=== PATIENT | female | born 1960 | race Caucasian/White ===

== ENCOUNTER 2025-03-07 08:09 | Outpatient (CLI) | payer MEDICARE, SELFPAY ==
--- NOTE | ~2025-03-07 | MM_ITS ---
EXAMINATION: MM screening cesar BI w delia HISTORY: Screening TECHNIQUE: Craniocaudal and mediolateral oblique 3-D tomosynthesis images were obtained and synthetic 2-D images were generated. CAD analysis was submitted and interpreted. COMPARISON: No prior mammogram is available for comparison at this institution. BREAST PARENCHYMAL COMPOSITION: Not dense: There are scattered areas of fibroglandular density. FINDINGS: There is no evidence of suspicious mass, calcification, or architectural distortion to sugg est malignancy in either breast. There has been no suspicious interval change. IMPRESSION: 1. No mammographic evidence of malignancy. 2. Recommend routine screening mammography in one year. BI-RADS Category 1: Negative Reviewed, dictated and finalized at location B.
--- OUTSIDE RECORDS SUMMARY | 2025-03-07 08:16 | XMS_ITS | Continuity of Care Document ---
Author Organization [facility] Address [id number] [place] [address] [place] [address] Phone Care Team Providers Care Refinery Superintendent Name Role Phone Francisco Brody DO Unavailable Unavailable Advance Directives Directive Yes / No Effective Date File Name No Information Encounters Encounter Description Practice Location Reason(s) For Visit Diagnoses Date Provider Providers Copied on Encounter [facility], [address], [place], [place], [id number], [place] tel:[phone] [facility] [place] No Information Ronn Alexandra. [address] [employer] [facility], [place], [address], [place]. tel: [phone] Family History Family Member Type Diagnosis Age At Onset No Information Payers Payer name Insurance type Covered republican ID Authoriza tieugene(s) [employer] SOI CI [id number] Social History Type Description Quantity Date Captured Comments Sex Female Smoking Status No Information Chief Complaint And Reason For Visit No Information Reason For Referral Reason For Referral No Information History Of Present Illness Encounter Date Complaint History Of Prese nt Illness No Information Functional Status Date Functional Assessmen t No Information Instructions Date Instruction Additional Infor mation No Information Assessments Type Assessment Date No Information Patient Care Teams Name Effective Dates (start - stop) Status Members No Information
--- OUTSIDE RECORDS SUMMARY | 2025-03-07 08:16 | XMS_ITS | Clinical Summary ---
Author Organization [facility] Address [address] [place] [address] Care Team Providers Care Interactive Media Director Name Role Phone Chato Hernandez MD Primary Care Provider [phone] Source Comments [facility]Info,non-owned Affiliates and Associated Physician Practices is amultiple site organization consisting of ambulatory clinics and hospital sitesin [place], [place], [place] and [place]. This disclosure is being madepursuant to the Care Everywhere program and may not contain all information available regarding this patient. Last updated 18.[facility] Allergies No known active allergies Medications * Be aware that medications may not be up to date on this document. Alwaysverify current medications with the patient. gabapentin (Neurontin) 800 MG tablet TAKE ONE CAPSULE BY MOUTH THREE TIMES DAILY NEEDED FOR PAIN MANAGEMENT 3 Active metFORMIN (Glucophage) 1000 MG tablet Take 1 (one) tablet by mouth 2 times daily Active lisinopril (Prinivil; Zestril) 20 MG tablet Take 1 (one) tablet by mouth two times daily at 4am and 4pm Active glimepiride (Amaryl) 4 MG tablet Take 1 (one) tablet by mouth 2 times daily FOR DIABETES 3 Active Cholecalcifero l (Vitamin D3) 1000 units CAPS Active famotidine (Pepcid) 20 MG tablet Active Semaglutide(0. 25 or 0.5MG/DOS) 2 MG/3ML Solution Pen-injector (Ozempic (0.25 or 0.5 MG/DOSE)) Inject 0.5 mg subcutaneously every 7 days 0.25 mg weekly for one month, then increase to 0.5 3 mL 5 3 Active hydroCHLOROthi azide (Hydrodiuril) 25 MG tablet Take 1 (one) tablet by mouth once daily 90 tablet 4 3 Active dulaglutide (Trulicity) 0.75 MG/0.5ML injection Inject 0.5 mL subcutaneously every 7 days 2 mL 5 3 Active Active Problems Problem Noted Date Diagnosed Date Diabetic peripheral neuropat hy associated with type 2 diabetes mellitus 09/03/2017 09/20/2023 Obesity 09/03/2017 09/20/2023 Thyroid nodule 09/03/2017 09/20/2023 Type 2 diabetes mellitus 09/03/2017 023 Social History Tobacco Use Types Packs/Day Years Used Date Smoking Tobacco: Never Assessed Comments Unknown Sex and Gender Information Value Date Recorded Sex Assigned at Not on file Legal Sex Female 11:01 AM CDT Gender Identity Not on file Sexual Orientation Not on file Last Filed Vital Signs Vital Sign Reading Time Taken Comments Blood Pressure 176/100 08/04/2023 8:02 AM CDT Pulse 93 08/04/2023 8:02 AM CDT Temperature - - Respiratory Rate 18 08/04/2023 8:02 AM CDT Oxygen Saturation 98% 08/04/2023 8:02 AM CDT Inhaled Oxygen Concentration - - Weight 118.4 kg (261 lb) 08/04/2023 8:02 AM CDT Height 162.6 cm (5' 4 ) 08/04/2023 8:02 AM CDT Body Mass Index 44.8 08/04/2023 8:02 AM CDT Plan of Treatment Health Maintenance Due Date Last Done Comments BONE DENSITY TESTING 1960 COLOGUARD (AGES 45-75) - COLON CA SCREENING 1958 COLON MONITORING 1958 COLONOSCOPY - COLON CA SCREENING 1958 CT COLONOGRAPHY - COLON CA SCREENING 1960 Colorectal Cancer Screening 1958 FIT - COLON CA SCREENING 1958 FLEX SIG - COLON CA SCREENING 1958 MAMMOGRAM 1960 MEDICARE AWV 12 MONTHS 1958 HEPATITIS C SCREENING 09/21/1976 DTAP/TDAP/TD VACCINES (1 - Tdap) 1977 PNEUMOCOCCAL VACCINE 50+ (1 of 2 - PCV) 1977 DIABETES-STATIN 1998 ZOSTER VACCINE (1 of 2) 2008 Respiratory Syncytial Virus (RSV) Vaccine Pt: or over 60 yrs (1 - Risk 60-74 years 1-dose series) 2018 DIABETES-FOOT EXAM WITH MONOFILAMENT 09/20/2023 DIABETES-HGB A1C 11/04/2023 08/04/2023 COVID-19 VACCINE ( season) 2024 02/13/2022, 07/31/2021, 12/08/2020, Additional history exists DIABETES-SERUM CREATININE 08/04/2024 08/04/2023 DEPRESSION SCREENING 10/20/2024 DIABETES - URINE PROTEIN SCREENING 10/20/2024 08/04/2023 DIABETES RETINOPATHY SCREENING 05/07/2025 05/07/2023 INFLUENZA VACCINE (Season Ended) 2025 07/28/2023, 08/20/2022, 07/15/2019, Additional history exists HEPATITIS B VACCINE Aged Out No longe r eligible based on patient's age to complete this topic HIB VACCINE Aged Out No longer eligi ble based on patient's age to complete this topic HPV VACCINE Aged Out No longer eligi ble based on patient's age to complete this topic MENINGOCOCCAL (Group B) VACCINE SHARED DECISION-MAKING Aged Out No longer eligible based on patient's age to complete this topic MENINGOCOCCAL GROUPS A/C/Y/W VACCINE Aged Out No longer eligible based on patient's age to complete this topic Procedures Procedure Name Priority Date/Time Associated Diagnosis Comments MICROALB/CREAT RATIO URINE RANDOM PANEL Routine 08/04/2023 9:49 AM CDT Type 2 diabetes mellitus with diabetic polyneuropathy, without long-term current use of insulin Thyroid nodule COMPREHENSIVE METABOLIC PANEL Routine 08/04/2023 9:42 AM CDT Type 2 diabetes mellitus with diabetic polyneuropathy, without long-term current use of insulin Thyroid nodule HEMOGLOBIN A1C Routine 08/04/2023 9:42 AM CDT Type 2 diabetes mellitus with diabetic polyneuropathy, without long-term current use of insulin Thyroid nodule EYE EXAM Routine 05/07/2023 from Last 3 Months or Most Recently Relevant to Health Maintenance Results * MICROALB/CREAT RATIO URINE RANDOM PANEL (08/04/2023 9:49 AM CDT) Albumin Random Urine 9.2 Not Established ug/mL 08/04/2023 10:58 AM CDT [facility] Creatinine Urine 60.60 Not Established mg/dL 08/04/2023 10:58 AM CDT [facility] Urine Albumin/Creati nine Ratio 15 <30 mg/g 08/04/2023 10:58 AM CDT [facility] Urine URINE SPECIMEN OBTAINED BY CLEAN CATCH PROCEDURE / Unknown Collection / Unknown 08/04/2023 9:49 AM CDT 08/04/2023 10:17 AM CDT Robbi Haskins MD LAB - URINE CHEMISTRY ORDERAB LES Final Result Performing Organization Address City/State/[facility] Co de Phone Number [facility] [address] [place] [address], [facility] [phone] * (ABNORMAL) HEMOGLOBIN A1C (08/04/2023 9:42 AM CDT) Hemoglobin A1c 9.7(H) <=5.6 % 08/06/2023 11:28 AM CDT [facility] Estimated Average Glucose 232 mg/dL 08/06/2023 11:28 AM T [facility] Comment: HbA1c Interpretation: Normal : < 5.7% Pre-diabetes: 5.7-6.4% Diabetes: Equal to or greater than 6.5% Test results diagnostic of diabetes should be repeated for confirmation. Treatment target values recommended by ADA and other clinical organizations should be used to evaluate metabolic control in patients. Reference: [place] [employer], Standards of Care in Diabetes -2020 In patients 70 years and older consider HbA1c target range of 7.0-7.5% (Reference: Vance Brown et al. JAMDA. 2012) The Sebia assay for the measurement of HbA1c is a National Glycohemoglobin Standardization Program (NGSP) certified method. Blood BLOOD SPECIMEN / Unknown Lab Venipuncture / Unknown 08/04/2023 9:42 AM CDT 08/04/2023 10:19 AM CDT Robbi Haskins MD LAB - CHEMISTRY ORDERABLES Fi nal Result [facility] [address] [place] [address], [facility] [phone] * (ABNORMAL) COMPREHENSIVE METABOLIC PANEL (08/04/2023 9:42 AM CDT) BUN 13 7 - 26 mg/dL 08/04/2023 10:52 AM [facility] Creatinine 0.92 0.56 - 0.96 mg/dL 08/04/2023 10:52 AM [facility] Sodium 137 136 - 145 mmol/L 08/04/2023 10:52 AM [facility] Potassium 4.5 3.5 - 4.5 mmol/L 08/04/2023 10:52 AM [facility] Chloride 102 98 - 107 mmol/L 08/04/2023 10:52 AM [facility] CO2 25 22 - 29 mmol/L 08/04/2023 10:52 AM [facility] Glucose 216(H) 70 - 115 mg/dL 08/04/2023 10:52 AM [facility] Calcium 9.7 8.4 - 10.2 mg/dL 08/04/2023 10:52 AM [facility] Protein Total 7.4 6.0 - 8.3 g/dL 08/04/2023 10:52 AM [facility] Albumin 3.9 3.4 - 5.0 g/dL 08/04/2023 10:52 AM [facility] Bilirubin Total 0.4 0.2 - 1.2 mg/dL 08/04/2023 10:52 AM [facility] Alkaline Phosphatase 86 40 - 150 U/L 08/04/2023 10:52 AM [facility] ALT 30 5 - 55 U/L 08/04/2023 10:52 AM [facility] AST 24 5 - 34 U/L 08/04/2023 10:52 AM CDT [facility] Anion Gap 10 6 - 16 08/04/2023 10:52 AM [facility] BUN/Creatinine Ratio 14 7 - 23 08/04/2023 10:52 AM T [facility] Osmolality Calculated 291 275 - 295 mOsm/kg 08/04/2023 10:52 AM [facility] Albumin/Globulin Ratio 1.1 1.1 - 2.3 08/04/2023 10:52 AM [facility] eGFR by CKD-EPI 70(L) >=90 mL/min/1.7 3 m2 08/04/2023 10:52 AM [facility] Blood BLOOD SPECIMEN / Unknown Lab Venipuncture / Unknown 08/04/2023 9:42 AM CDT 08/04/2023 10:20 AM CDT Robbi Haskins MD LAB - CHEMISTRY ORDERABLES nal Result [facility] [address] [place] [address], [facility] [phone] * EYE EXAM (05/07/2023) Anatomical Region Laterality Modality Other Historical Provider SCANNING ONLY Final Res ult from Last 3 Months or Most Recently Relevant to Health Maintenance Insurance MEDICARE MEDICAID - [place] Care Teams Interactive Media Director Relationship Specialty [place] [address] [place] [id number] PCP - General Internal Medicine 08/04/23
--- OUTSIDE RECORDS SUMMARY | 2025-03-07 08:16 | XMS_ITS | Data Portability ---
Author Organization [facility] [place] Address [address] [place] [address] Care Team Providers Care Supervisor Final Name Role Phone DORINA EASTON Primary Care Provider [phone] Assessment No assessment recorded. Plan of Treatment Reminders Order Date Submit Date Provider Last Modified By Organization Details Last Modified Time Details Appointments ANY 30 2024 02:30P M Dorina Easton MD Not available Not available Not available Lab lipid panel, serum 2024 025 [facility], [address], [address], [place], [address], 02/28/2025 16:38:50 HbA1c (hemogl obin A1c), blood 2024 025 [facility] In-Office Order, Internal Use Only DO Not Attach Compendium DO Not Attach Compendium, Do Not Delete/merge, [id number] 02/28/2025 16:38:51 urinaly sis complet e, reflex culture 2024 025 [facility], [address], [address], [place], [address], 03/04/2025 17:19:55 hemoglo bin (Hb), fingers tick, blood 2024 025 [facility] In-Office Order, Internal Use Only DO Not Attach Compendium DO Not Attach Compendium, Do Not Delete/merge, [id number] 11/04/2024 13:05:32 HbA1c (hemogl obin A1c), blood 2023 024 [facility], [address], [address], [place], [address], 11/05/2024 09:44:42 CMP, serum or plasma 2023 024 [facility], [address], [address], [place], [address], 07/29/2024 10:13:57 albumin /creati nine, mass ratio, urine 2023 024 [facility], [address], [address], [place], [address], 07/29/2024 10:13:56 HbA1c (hemogl obin A1c), blood 2023 024 [facility] In-Office Order, Internal Use Only DO Not Attach Compendium DO Not Attach Compendium, Do Not Delete/merge, [id number] 02/19/2024 12:19:36 Referral gastroe nterolo gist referra l - family history of colon cancer, 2024 025 [facility], [address], [address], [address], 02/16/2025 17:53:55 Procedures None recorde d. Surgeries None recorde d. Imaging XR, hand - pain mainly in first MCP and PIP, also pain in left anatomi isatu snuff box 2024 025 [facility] ([facility]), [address] [place], [address], 02/28/2025 16:40:53 DEXA 2024 025 [facility] (Imaging), [address], [place], [address], 02/10/2025 13:57:23 MAMMO, screeni ng, digital , bilater al 2024 025 [facility] (Mammography) , [address] [place], [address], 02/24/2025 12:50:46 XR, hand - Pain bilater al MCP joints 2023 [facility] ([facility] Sched[facility]), [address] [place], [address], 03/02/2025 11:39:00 XR, foot - diabeti c, foot swellin g and tendern ess over metatar levy heads on exam 2023 024 [facility] ([facility] Scheduling), [address] [place], [address], 03/02/2025 11:39:00 MAMMO, screeni ng, digital , bilater al 2023 024 [facility] ([facility] Scheduling), [address] [place], [address], 03/01/2025 13:43:16 Medication Orders propran olol 10 mg tablet 2024 025 [facility], [address] [place] [address], [id number], 03/01/2025 14:43:57 Trulici ty 0.75 mg/0.5 mL subcuta neous pen injecto r 2024 025 [facility], [address] [place] [address], [id number], 03/01/2025 14:43:57 Trulici ty 1.5 mg/0.5 mL subcuta neous pen injecto r 2024 025 [facility], [address] [place] [address], [id number], 02/28/2025 17:15:28 metform in 1,000 mg tablet 2024 025 [facility], [address] [place] [address], [id number], 01/12/2025 15:39:45 Ozempic 2 mg/dose (8 mg/3 mL) subcuta neous pen injecto r 2024 [facility], [address] [place] [address], [id number], 02/07/2025 15:24:04 gabapen tin 800 mg tablet 2024 025 [facility], [address] [place] [address], [id number], 01/12/2025 15:39:44 amitrip tyline 25 mg tablet 2024 025 [facility], [address] [place] [address], [id number], 02/28/2025 15:49:28 Flonase Allergy Relief 50 mcg/act uation nasal spray,s uspensi on 2024 [facility], [address] [place] [address], [id number], 12/14/2024 16:09:20 Augment in 500 mg-125 mg tablet 2024 025 [facility], [address] [place] [address], [id number], 02/28/2025 15:43:15 hydroch lorothi azide 25 mg tablet 2024 025 [facility], [address] [place] [address], [id number], 01/12/2025 15:39:45 lisinop ril 20 mg tablet 2024 025 [facility], [address] [place] [address], [id number], 01/12/2025 15:39:45 Ozempic 2 mg/dose (8 mg/3 mL) subcuta neous pen injecto r 2023 024 [facility], [address] [place] [address], [id number], 09/30/2024 15:43:51 Ozempic 1 mg/dose (2 mg/1.5 mL) subcuta neous pen injecto r 2023 024 [facility], [address] [place] [address], [id number], 05/24/2024 09:34:40 Singula ir 10 mg tablet 2023 024 [facility], [address] [place] [address], [id number], 04/27/2024 14:32:08 Patient TargetsNo targets recorded. 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 Screening for malignant neoplasm of colon family history of colon cancer, Referring Physician: Dorina Easton, Family Medicine, Encounter Date: 11/04/2024 Results Created Date Observation Date Name Description Value Unit Range Abnormal Flag Note LastModifiedBy Organization Detail LastModifiedTime 02/11/2002/11/2024 influ vibha virus A + B + SARS- CoV-2 (COVI D19) Ag panel , rapid IA, upper respi rator y speci men Flu A negati ve Not Available In-Office Order Internal Use Only DO Not Attach Compendium DO Not Attach Compendium, Do Not Delete/merge, [id number] 02/11/2024 14:09:30 02/11/2002/11/2024 influ vibha virus A + B + SARS- CoV-2 (COVI D19) Ag panel , rapid IA, upper respi rator y speci men Flu B positi ve Not Available In-Office Order Internal Use Only DO Not Attach Compendium DO Not Attach Compendium, Do Not Delete/merge, [id number] 02/11/2024 14:09:30 02/11/20 24 02/11/2024 influ vibha virus A + B + SARS- CoV-2 (COVI D19) Ag panel , rapid IA, upper respi rator y speci men Rapid SARS CoV 2 Ag, QL IA, respiratory specimen negati ve Not Available In-Office Order Internal Use Only DO Not Attach Compendium DO Not Attach Compendium, Do Not Delete/merge, [id number] 02/11/2024 14:09:30 02/19/20 24 02/19/2024 HbA1c (hemo globi n A1c), blood HbA1c 6.4 Not Available In-Office Order Internal Use Only DO Not Attach Compendium DO Not Attach Compendium, Do Not Delete/merge, [id number] 02/18/2024 14:58:40 03/16/20 24 03/17/2024 MICRO SCOPI C EXAMI NATIO N WBC >30 /hpf 0-5 abnormal Not Available [facility] ([facility]) [address], [place], [address], 03/19/2024 17:10:18 03/16/20 24 03/17/2024 MICRO SCOPI C EXAMI NATIO N RBC None seen /hpf 0-2 Not Available [facility] ([facility]) [address], [place], [address], 03/19/2024 17:10:18 03/16/20 24 03/17/2024 MICRO SCOPI C EXAMI NATIO N epithelial cells (non renal) 0-10 /hpf 0-10 Not Available [facility] ([facility]) [address], [place], [address], 03/19/2024 17:10:18 03/16/20 24 03/17/2024 MICRO SCOPI C EXAMI NATIO N casts None seen /lpf nonese en Not Available [facility] ([facility]) [address], [place], [address], 03/19/2024 17:10:18 03/16/20 24 03/17/2024 MICRO SCOPI C EXAMI NATIO N bacteria Many nonese en/few abnormal Not Available [facility] ([facility]) [address], [place], [address], 03/19/2024 17:10:18 03/16/20 24 03/17/2024 UA WITH CULTU RE REFLE X specific gravity 1.017 1.005- 1.030 Not Available [facility] ([facility]) [address], [place], [address], 03/19/2024 17:10:18 03/16/20 24 03/17/2024 UA WITH CULTU RE REFLE X pH 5.5 5.0-7. 5 Not Available [facility] ([facility]) [address], [place], [address], 03/19/2024 17:10:18 03/16/20 24 03/17/2024 UA WITH CULTU RE REFLE X urine-color YELLOW yellow Not Available [facility] ([facility]) [address], [place], [address], 03/19/2024 17:10:18 03/16/20 24 03/17/2024 UA WITH CULTU RE REFLE X appearance CLOUDY clear abnormal Not Available [facility] ([facility]) [address], [place], [address], 03/19/2024 17:10:18 03/16/20 24 03/17/2024 UA WITH CULTU RE REFLE X WBC esterase 3+ negati ve abnormal Not Available [facility] ([facility]) [address], [place], [address], 03/19/2024 17:10:18 03/16/20 24 03/17/2024 UA WITH CULTU RE REFLE X protein NEGATI VE negati ve/tra ce Not Available [facility] ([facility]) [address], [place], [address], 03/19/2024 17:10:18 03/16/20 24 03/17/2024 UA WITH CULTU RE REFLE X glucose NEGATI VE negati ve Not Available [facility] ([facility]) [address], [place], [address], 03/19/2024 17:10:18 03/16/20 24 03/17/2024 UA WITH CULTU RE REFLE X ketones NEGATI VE negati ve Not Available [facility] ([facility]) [address], [place], [address], 03/19/2024 17:10:18 03/16/20 24 03/17/2024 UA WITH CULTU RE REFLE X occult blood NEGATI VE negati ve Not Available [facility] ([facility]) [address], [place], [address], 03/19/2024 17:10:18 03/16/20 24 03/17/2024 UA WITH CULTU RE REFLE X bilirubin NEGATI VE negati ve Not Available [facility] ([facility]) [address], [place], [address], 03/19/2024 17:10:18 03/16/20 24 03/17/2024 UA WITH CULTU RE REFLE X urobilinogen ,semi-qn 0.2 mg/dL 0.2-1. 0 Not Available [facility] ([facility]) [address], [place], [address], 03/19/2024 17:10:18 03/16/20 24 03/17/2024 UA WITH CULTU RE REFLE X nitrite, urine POSITI VE negati ve abnormal Not Available [facility] ([facility]) [address], [place], [address], 03/19/2024 17:10:18 03/16/20 24 03/17/2024 UA WITH CULTU RE REFLE X microscopic examination SEE BELOW: Micro scopi c was indic ated and was perfo rmed. Not Available [facility] ([facility]) [address], [place], [address], 03/19/2024 17:10:18 03/16/20 24 03/17/2024 UA WITH CULTU RE REFLE X urinalysis reflex COMMEN T This speci men has refle xed to a Urine Cultu re. Not Available [facility] ([facility]) [address] [place], [address], 03/19/2024 17:10:18 03/16/20 24 03/19/2024 URINE CULTU RE, ROUTI NE urine culture, routine Final report abnormal Not Available [facility] ([facility]) [address], [place], [address], 03/19/2024 17:10:20 03/16/20 24 03/19/2024 URINE CULTU RE, ROUTI NE result 1 Escher ichia coli abnormal Great er than 100,0 00 colon y formi ng units per mL Cefaz alba <=4 ug/mL Cefaz alba with an CORY <=16 predi cts susce ptibi lity to the oral agent s cefac brian, cefdi lexis, cefpo doxim e, cefpr ozil, cefur oxime , cepha lexin , and lorac arbef when used for thera py of uncom plica esteban urina ry tract infec tions due to E. coli, Klebs iella pneum oniae , and Prote us mirab ilis. Not Available [facility] ([facility]) [address] [place], [address], 03/19/2024 17:10:20 03/16/20 24 03/19/2024 URINE CULTU RE, ROUTI NE antimicrobia l susceptibili ty Commen t S = Susce ptibl e; I = Inter media te; R = Resis tant P = Posit kezia; N = Negat kezia MICS are expre ssed in micro grams per mL Antib iotic RSLT# 1 RSLT# 2 RSLT# 3 RSLT# 4 Amoxi cilli n/Cla vulan ic Acid S Ampic illin R Cefep lissy S Ceftr iaxon e S Cefur oxime S Cipro floxa dena R Ertap enem S Genta micin S Imipe nem S Levof loxac in R Merop enem S Nitro furan toin S Piper acill in/Ta zobac casiano S Tetra cycli ne S Tobra mycin S Trime thopr im/Connelly lfa S Not Available [facility] ([facility]) [address], [place], [address], 03/19/2024 17:10:20 03/16/20 24 03/16/2024 urina lysis , dipst ick Leukocytes Small Not Available In-Offi ce Order Internal Use Only DO Not Attach Compendium DO Not Attach Compendium, Do Not Delete/merge, [id number] 03/08/2024 19:08:38 03/16/20 24 03/16/2024 urina lysis , dipst ick Nitrite positi ve Not Available In-Office Order Internal Use Only DO Not Attach Compendium DO Not Attach Compendium, Do Not Delete/merge, [id number] 03/08/2024 19:08:38 03/16/20 24 03/16/2024 urina lysis , dipst ick Urobilinogen .2 Not Available In-Of fice Order Internal Use Only DO Not Attach Compendium DO Not Attach Compendium, Do Not Delete/merge, [id number] 03/08/2024 19:08:38 03/16/20 24 03/16/2024 urina lysis , dipst ick Protein Negati ve Not Available In-Office Order Internal Use Only DO Not Attach Compendium DO Not Attach Compendium, Do Not Delete/merge, [id number] 03/08/2024 19:08:38 03/16/20 24 03/16/2024 urina lysis , dipst ick pH 5.5 Not Available In-Office Order Internal Use Only DO Not Attach Compendium DO Not Attach Compendium, Do Not Delete/merge, 03/08/2024 19:08:38 03/16/20 24 03/16/2024 urina lysis , dipst ick Blood Negati ve Not Available In-Office Order Internal Use Only DO Not Attach Compendium DO Not Attach Compendium, Do Not Delete/merge, 03/08/2024 19:08:38 03/16/20 24 03/16/2024 urina lysis , dipst ick Specific Acushnet 1.020 Not Available In-Off ice Order Internal Use Only DO Not Attach Compendium DO Not Attach Compendium, Do Not Delete/merge, 03/08/2024 19:08:38 03/16/20 24 03/16/2024 urina lysis , dipst ick Ketone Negati ve Not Available In-Office Order Internal Use Only DO Not Attach Compendium DO Not Attach Compendium, Do Not Delete/merge, 03/08/2024 19:08:38 03/16/20 24 03/16/2024 urina lysis , dipst ick Bilirubin Negati ve Not Available In-Office Order Internal Use Only DO Not Attach Compendium DO Not Attach Compendium, Do Not Delete/merge, 03/08/2024 19:08:38 03/16/20 24 03/16/2024 urina lysis , dipst ick Glucose Negati ve Not Available In-Office Order Internal Use Only DO Not Attach Compendium DO Not Attach Compendium, Do Not Delete/merge, 03/08/2024 19:08:38 03/16/20 24 03/16/2024 urina lysis , dipst ick Appearance Slight ly Cloudy Not Available In-Office Order Internal Use Only DO Not Attach Compendium DO Not Attach Compendium, Do Not Delete/merge, 03/08/2024 19:08:38 03/16/20 24 03/16/2024 urina lysis , dipst ick Color Yellow Not Available In-Office Order Internal Use Only DO Not Attach Compendium DO Not Attach Compendium, Do Not Delete/merge, 03/08/2024 19:08:38 03/16/20 24 03/16/2024 urina lysis , dipst ick Leukocytes Small Not Available In-Offi ce Order Internal Use Only DO Not Attach Compendium DO Not Attach Compendium, Do Not Delete/merge, 03/16/2024 12:50:13 03/16/20 24 03/16/2024 urina lysis , dipst ick Nitrite positi ve Not Available In-Office Order Internal Use Only DO Not Attach Compendium DO Not Attach Compendium, Do Not Delete/merge, 03/16/2024 12:50:13 03/16/20 24 03/16/2024 urina lysis , dipst ick Urobilinogen .2 Not Available In-Of fice Order Internal Use Only DO Not Attach Compendium DO Not Attach Compendium, Do Not Delete/merge, 03/16/2024 12:50:13 03/16/20 24 03/16/2024 urina lysis , dipst ick Protein Negati ve Not Available In-Office Order Internal Use Only DO Not Attach Compendium DO Not Attach Compendium, Do Not Delete/merge, 03/16/2024 12:50:13 03/16/20 24 03/16/2024 urina lysis , dipst ick pH 5.5 Not Available In-Office Order Internal Use Only DO Not Attach Compendium DO Not Attach Compendium, Do Not Delete/merge, 03/16/2024 12:50:13 03/16/20 24 03/16/2024 urina lysis , dipst ick Blood Negati ve Not Available In-Office Order Internal Use Only DO Not Attach Compendium DO Not Attach Compendium, Do Not Delete/merge, 03/16/2024 12:50:13 03/16/20 24 03/16/2024 urina lysis , dipst ick Specific Acushnet 1.020 Not Available In-Off ice Order Internal Use Only DO Not Attach Compendium DO Not Attach Compendium, Do Not Delete/merge, 03/16/2024 12:50:13 03/16/20 24 03/16/2024 urina lysis , dipst ick Ketone Negati ve Not Available In-Office Order Internal Use Only DO Not Attach Compendium DO Not Attach Compendium, Do Not Delete/merge, 03/16/2024 12:50:13 03/16/20 24 03/16/2024 urina lysis , dipst ick Bilirubin Negati ve Not Available In-Office Order Internal Use Only DO Not Attach Compendium DO Not Attach Compendium, Do Not Delete/merge, 03/16/2024 12:50:13 03/16/20 24 03/16/2024 urina lysis , dipst ick Glucose Negati ve Not Available In-Office Order Internal Use Only DO Not Attach Compendium DO Not Attach Compendium, Do Not Delete/merge, 03/16/2024 12:50:13 03/16/20 24 03/16/2024 urina lysis , dipst ick Appearance Slight ly Cloudy Not Available In-Office Order Internal Use Only DO Not Attach Compendium DO Not Attach Compendium, Do Not Delete/merge, 03/16/2024 12:50:13 03/16/20 24 03/16/2024 urina lysis , dipst ick Color Yellow Not Available In-Office Order Internal Use Only DO Not Attach Compendium DO Not Attach Compendium, Do Not Delete/merge, 03/16/2024 12:50:13 04/15/20 24 04/18/2024 URINE CULTU RETERRY NE urine culture, routine FINAL REPORT abnormal Not Available [facility] ([facility]) [address], [place], [address], 04/18/2024 13:07:36 04/15/20 24 04/18/2024 URINE CULTU RETERRY NE result 1 ESCHER ICHIA COLI abnormal Great er than 100,0 00 colon y formi ng units per mL Cefaz alba <=4 ug/mL Cefaz alba with an CORY <=16 predi cts susce ptibi lity to the oral agent s cefac brian, cefdi lexis, cefpo doxim e, cefpr ozil, cefur oxime , cepha lexin , and lorac arbef when used for thera py of uncom plica esteban urina ry tract infec tions due to E. coli, Klebs iella pneum oniae , and Prote us mirab ilis. Not Available [facility] ([facility]) [address] [facility], [place], [address], 04/18/2024 13:07:36 04/15/20 24 04/18/2024 URINE CULTU RE, ROUTI NE antimicrobia l susceptibili ty COMMEN T S = Susce ptibl e; I = Inter media te; R = Resis tant P = Posit kezia; N = Negat kezia MICS are expre ssed in micro grams per mL Antib iotic RSLT# 1 RSLT# 2 RSLT# 3 RSLT# 4 Amoxi cilli n/Cla vulan ic Acid S Ampic illin R Cefep lissy S Ceftr iaxon e S Cefur oxime S Cipro floxa dena R Ertap enem S Genta micin S Imipe nem S Levof loxac in R Merop enem S Nitro furan toin S Piper acill in/Ta zobac casiano S Tetra cycli ne S Tobra mycin S Trime thopr im/Connelly lfa R Not Available [facility] ([facility]) [address] [facility] [address], [place], [address], 04/18/2024 13:07:36 05/05/20 24 05/09/2024 URINE CULTU RE, ROUTI NE urine culture, routine FINAL REPORT abnormal Not Available [facility] ([facility]) [address] [facility], [place], [address], 05/09/2024 17:07:42 05/05/20 24 05/09/2024 URINE CULTU RE, ROUTI NE result 1 ENTERO COCCUS FAECAL IS abnormal For Enter ococc us speci es, amino glyco sides (exce pt for high- level resis tance scree fredy) , cepha lospo rins, clind amyci n, and trime thopr im-connelly lfame thoxa zole are not effec tive clini juan daniel . (CLSI , M100- S26, 2016) Note: this isola te is vanco mycin -susc eptib le. This infor matio n is provi ded for epide miolo gic purpo ses only: vanco mycin is not among the antib iotic s recom lindy d for thera py of urina ry tract infec tions cause d by Enter ococc us. 10,00 0-25, 000 colon y formi ng units per mL Not Available [facility] ([facility]) [address] [place], [address], 05/09/2024 17:07:42 05/05/20 24 05/09/2024 URINE CULTU RE, ROUTI NE antimicrobia l susceptibili ty COMMEN T S = Susce ptibl e; I = Inter media te; R = Resis tant P = Posit kezia; N = Negat kezia MICS are expre ssed in micro grams per mL Antib iotic RSLT# 1 RSLT# 2 RSLT# 3 RSLT# 4 Cipro floxa dena R Levof loxac in R Nitro furan toin S Penic illin R Tetra cycli ne R Vanco mycin S Not Available [facility] ([facility]) [address] [facility] [address], [place], [address], 05/09/2024 17:07:42 07/28/20 24 07/29/2024 ALBUM IN/CR EATIN INE RATIO ,URIN E creatinine, urine 28.2 mg/dL notest ab. Not Available [facility] ([facility]) [address] [place], [address], 07/29/2024 10:13:56 07/28/2007/29/2024 ALBUM IN/CR EATIN INE RATIO ,URIN E albumin, urine <3.0 ug/mL notest ab. Not Available [facility] ([facility]) [address] [place], [address], 07/29/2024 10:13:56 07/28/20 24 07/29/2024 ALBUM IN/CR EATIN INE RATIO ,URIN E alb/creat ratio <11 Kaylyn l: 0 - 29 Moder ately incre ased: 30 - 300 Sever royer incre ased: >300 Not Available [facility] ([facility]) [address] [place], [address], 07/29/2024 10:13:56 07/28/2007/29/2024 COMP. METAB OLIC PANEL (14) glucose 126 mg/dL 70-99 above high normal Not Available [facility] ([facility]) [address] [place], [address], 07/29/2024 10:13:57 07/28/2007/29/2024 COMP. METAB OLIC PANEL (14) BUN 20 mg/dL 8-27 Not Available [facility] ([facility]) [address] [place], [address], 07/29/2024 10:13:57 07/28/20 24 07/29/2024 COMP. METAB OLIC PANEL (14) creatinine 0.93 mg/dL 0.57-1 .00 Not Available [facility] ([facility]) [address] [place], [address], 07/29/2024 10:13:57 07/28/20 24 07/29/2024 COMP. METAB OLIC PANEL (14) eGFR 68 mL/mi n/1.7 3 >59 Not Available [facility] ([facility]) [address] [place], [address], 07/29/2024 10:13:57 07/28/2007/29/2024 COMP. METAB OLIC PANEL (14) BUN/creatini ne ratio 22 12-28 Not Available [facility] ([facility]) [address] [place], [address], 07/29/2024 10:13:57 07/28/20 07/29/2024 COMP. METAB OLIC PANEL (14) sodium 136 mmol/ L 134-14 4 Not Available [facility] ([facility]) [address] [place], [address], 07/29/2024 10:13:57 07/28/20 24 07/29/2024 COMP. METAB OLIC PANEL (14) potassium 4.2 mmol/ L 3.5-5. 2 Not Available [facility] ([facility]) [address] [facility] [address], [place], [address], 07/29/2024 10:13:57 07/28/2007/29/2024 COMP. METAB OLIC PANEL (14) chloride 95 mmol/ L 96-106 below low normal Not Available [facility] ([facility]) [address] [facility] [address], [place], [address], 07/29/2024 10:13:57 07/28/2007/29/2024 COMP. METAB OLIC PANEL (14) carbon dioxide, total 23 mmol/ L 20-29 Not Available [facility] ([facility]) [address] [place], [address], 07/29/2024 10:13:57 07/28/20 24 07/29/2024 COMP. METAB OLIC PANEL (14) calcium 9.4 mg/dL 8.7-10 .3 Not Available [facility] ([facility]) [address] [place], [address], 07/29/2024 10:13:57 07/28/20 24 07/29/2024 COMP. METAB OLIC PANEL (14) protein, total 6.7 g/dL 6.0-8. 5 Not Available [facility] ([facility]) [address] [place], [address], 07/29/2024 10:13:57 07/28/20 24 07/29/2024 COMP. METAB OLIC PANEL (14) albumin 4.4 g/dL 3.9-4. 9 Not Available [facility] ([facility]) [address] [place], [address], 07/29/2024 10:13:57 07/28/20 24 07/29/2024 COMP. METAB OLIC PANEL (14) globulin, total 2.3 g/dL 1.5-4. 5 Not Available [facility] ([facility]) [address] [place], [address], 07/29/2024 10:13:57 07/28/20 24 07/29/2024 COMP. METAB OLIC PANEL (14) bilirubin, total 0.2 mg/dL 0.0-1. 2 Not Available [facility] ([facility]) [address] [place], [address], 07/29/2024 10:13:57 07/28/20 24 07/29/2024 COMP. METAB OLIC PANEL (14) alkaline phosphatase 83 IU/L 44-121 Not Available [facility]) [address] [facility] [address], [place], [address], 07/29/2024 10:13:57 07/28/20 24 07/29/2024 COMP. METAB OLIC PANEL (14) AST (SGOT) 25 IU/L 0-40 Not Available [facility] ([facility]) [address] [place], [address], 07/29/2024 10:13:57 07/28/20 24 07/29/2024 COMP. METAB OLIC PANEL (14) ALT (SGPT) 20 IU/L 0-32 Not Available [facility] ([facility]) [address] [place], [address], 07/29/2024 10:13:57 08/25/20 24 08/28/2024 URINE CULTU RE, ROUTI NE urine culture, routine FINAL REPORT abnormal Not Available [facility] ([facility]) [address] [place], [address], 08/28/2024 07:36:08 08/25/20 24 08/28/2024 URINE CULTU RE, ROUTI NE result 1 KLEBSI KAJAL OXYTOC A abnormal 50,00 0-100 ,000 colon y formi ng units per mL Not Available [facility] ([facility]) [address] [facility], [place], [address], 08/28/2024 07:36:08 08/25/20 24 08/28/2024 URINE CULTU RE, ROUTI NE antimicrobia l susceptibili ty COMMEN T S = Susce ptibl e; I = Inter media te; R = Resis tant P = Posit kezia; N = Negat kezia MICS are expre ssed in micro grams per mL Antib iotic RSLT# 1 RSLT# 2 RSLT# 3 RSLT# 4 Amoxi cilli n/Cla vulan ic Acid S Ampic illin R Cefep lissy S Ceftr iaxon e S Cefur oxime S Cipro floxa dena S Genta micin S Imipe nem S Levof loxac in S Merop enem S Nitro furan toin S Tetra cycli ne S Tobra mycin S Trime thopr im/Connelly lfa S Not Available [facility] ([facility]) [address] [facility] [address], [place], [address], 08/28/2024 07:36:08 08/25/20 24 08/25/2024 urina lysis , dipst ick Leukocytes Large Not Available In-Offi ce Order Internal Use Only DO Not Attach Compendium DO Not Attach Compendium, Do Not Delete/merge, [id number] 08/25/2024 14:25:11 08/25/20 24 08/25/2024 urina lysis , dipst ick Nitrite positi ve Not Available In-Office Order Internal Use Only DO Not Attach Compendium DO Not Attach Compendium, Do Not Delete/merge, [id number] 08/25/2024 14:25:11 08/25/20 24 08/25/2024 urina lysis , dipst ick Urobilinogen 4 Not Available In-Of fice Order Internal Use Only DO Not Attach Compendium DO Not Attach Compendium, Do Not Delete/merge, [id number] 08/25/2024 14:25:11 08/25/20 24 08/25/2024 urina lysis , dipst ick Protein 100 Not Available In-Office Order Internal Use Only DO Not Attach Compendium DO Not Attach Compendium, Do Not Delete/merge, [id number] 08/25/2024 14:25:11 08/25/20 24 08/25/2024 urina lysis , dipst ick pH 5.0 Not Available In-Office Order Internal Use Only DO Not Attach Compendium DO Not Attach Compendium, Do Not Delete/merge [id number]|2025-03-07 08:16:00|2025-03-07 08:16:00|XMS_ITS|BKG DAEMON|External Medical Summaries|[id number]|" CONTINUITY OF CARE DOCUMENT Created on: March 07, 2025 Brianne Bear : 1960 Sex: Female Author Name awilda kaiser Address Unknown Organization [facility] Address [id number] [place] [address] [address] [place] [address] Phone [phone] Care Team Providers Care Supervisor Final Name Role Phone Morteza KENDALL, Carlitos Unavailable MANUELA AGUAYO MD Unavailable [phone] MANUELA AGUAYO MD Unavailable [phone] INSURANCE PROVIDERS Payer name Policy type / Coverage type Fieldon red green party ID [id number] (PPO C-SNP) Commercial insurance company [id number] "
--- OUTSIDE RECORDS SUMMARY | 2025-03-07 08:16 | XMS_ITS | Clinical Summary ---
Author Organization [facility] Address [address] [place] [id number] Care Team Providers Care Pulmonary Physician Name Role Phone Chato Hernandez MD Primary Care Provider [phone] Allergies No known active allergies Medications acyclovir 800 MG tablet 0 01/31/2019 Active amitriptyline 10 MG tablet START WTIH 10MG DAILY AT BEDTIME INCREASE BY 10MG EVERY 2 3 DAYS UNTIL REACHING A TOTAL DOSE OF 30MG DAILY. 3 04/22/2019 Active CALCIUM 600-D 600-400 MG-UNIT tablet TAKE 1 TABLET BY MOUTH TWICE DAILY DIRECTED FOR 30 DAYS 6 04/12/2019 Active gabapentin 800 MG tablet Take 800 mg by mouth 3 (three) times daily. 5 04/12/2019 Active glimepiride 4 MG tablet TAKE 1 TABLET BY MOUTH TWICE DAILY DIRECTED FOR 30 DAYS 2 03/09/2019 Active lisinopril-hydr ochlorothiazide 20-25 MG tablet Take 1 tablet by mouth daily. 5 05/07/2019 Active meloxicam 15 MG tablet TAKE 1 TABLET BY MOUTH ONCE DAILY AFTER A MEAL 6 04/12/2019 Active metFORMIN 1000 MG tablet Take 1,000 mg by mouth 2 (two) times daily. 6 04/12/2019 Active pioglitazone 30 MG tablet Take 30 mg by mouth daily. 3 05/11/2019 Active probiotic capsule Take 1 capsule by mouth 3 (three) times daily with meals. Active Active Problems No known active problems Family History Medical History Relation Comments Heart Disease Father Cancer Mother colon, breast, u terine Cancer Son colon Relation Status Comments Father Mother Son Social History Tobacco Use Types Packs/Day Years Used Date Smoking Tobacco: Former Cigarettes Q uit: 05/19/1992 Smokeless Tobacco: Never Quit: 05/19/2019 Alcohol Use Standard Drinks/Week Comments No 0 (1 standard drink = 0.6 oz pur e alcohol) AUDIT-C Answer Date Recorded Frequency of Alcohol Consumption Never 08/26/2018 Average Number of Drinks Not on file 018 Frequency of Binge Drinking Not on file 04/2018 Comments No Sex and Gender Information Value Date Recorded Sex Assigned at Not on file Legal Sex Female 8:03 PM CDT Gender Identity Not on file Sexual Orientation Not on file Last Filed Vital Signs Vital Sign Reading Time Taken Comments Blood Pressure 102/60 05/19/2019 8:03 AM CDT Pulse 82 05/19/2019 8:03 AM CDT Temperature 36.2 C (97.2 F) 05/19/2019 7:53 AM CDT Respiratory Rate 17 05/19/2019 8:03 AM CDT Oxygen Saturation 94% 05/19/2019 8:03 AM CDT Inhaled Oxygen Concentration - - Weight 108 kg (238 lb) 05/19/2019 6:30 AM CDT Height 163.8 cm (5' 4.5 ) 05/19/2019 6:30 AM CDT Body Mass Index 40.22 05/19/2019 6:30 AM CDT Plan of Treatment Health Maintenance Due Date Last Done Comments Colorectal Cancer Screening Colonoscopy (10 Years) 1960 Hepatitis C 1976 DTaP, Tdap and Td Vaccines ( 1 - Tdap) 1977 Mammogram Screening 1998 Pneumococcal Vaccine: 50+ Ye ars (1 of 1 - PCV) 2008 Zoster Vaccines (1 of 2) 2008 Dexa Scan (General) 2023 COVID-19 Vaccine ( - 2023-2 5 season) 2024 RSV Immunization or 60+ Years (1 - 1-dose 75+ series) 2033 Meningococcal B Vaccine Aged Out No l onger eligible based on patient's age to complete this topic Meningococcal Vaccine Aged Out No alejandra tim eligible based on patient's age to complete this topic RSV Immunizations Under 20 Months Aged Out No longer eligible based on patient's age to complete this topic Insurance [facility] Care Teams Pulmonary Physician Relationship Specialty Start Date End Date Chato Hernandez MD [address] [place] [address] PCP - General INTERNAL MEDICINE 05/19/19
--- OUTSIDE RECORDS SUMMARY | 2025-03-07 08:16 | XMS_ITS | Data Portability ---
Author Organization [facility] [place], Main Office Address [address] [place] [address] Care Team Providers Care Produce Runner Name Role Phone RUSTAM ANNA Primary Care Provider ANNA EASTON Referring Provider [phone] Assessment Encounter Date Assessment Date Assessment LastModified by Organization Details LastModified Time 11/04/2023 11/04/2023 By history and exam the patient is noted to have rotator cuff tendinitis with chronic impingement right shoulder. 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 We talked about treatment options today in detail were going to start her with a course of physical therapy and oral anti-inflammato ry medication. She also wanted to try a shot of cortisone she has had this a few years ago this seemed to work well for her. Under sterile conditions I injected the patient's right shoulder subacromial space in the office with 4 cc 0.5% bupivacaine and 20 mg of Kenalog. Patient tolerated procedure well. I will see her back in 6 weeks. She will keep a close eye on her blood sugars if her numbers get too high she will stop the prednisone. She declined oral anti-inflammato ry medication as she has been warned by her doctors to limit her use of that because of kidney function and her diabetes. She states as far she knows her kidney function is normal right now. She voiced understanding agrees above plan she will call for any further problems difficulties or questions. If her symptoms continue an MRI scan may be indicated when she returns. [email or web address] Not available 11/04/2023 10:52:09 Plan of Treatment Reminders Order Date Submit Date Provider Last Modified By Organization Details Last Modified Time Details Appointments None recorded. Lab None recorded. Referral physical therapist referral - Please contact patient to schedule 2023 024 [email or web address] [facility], [address] [place], [address], 4 15:32:09 Procedures injection/a spiration joint/bursa (PROC) 2023 024 [email or web address] In-Office Order, Internal Use Only DO Not Attach Compendium DO Not Attach Compendium, Do Not Delete/merge, [id number] 4 10:14:57 Surgeries None recorded. Imaging XR, shoulder 2023 024 [email or web address] [facility], [address] [place], [address], 4 10:54:50 Medication Orders bupivacaine HCl 0.5 % (5 mg/mL) injection solution 2023 024 [email or web address] [address] [facility], [address] [place] [address], [id number], 4 10:54:50 Kenalog 10 mg/mL suspension for injection 2023 [address] [facility], [address] [place] [address], [id number], 4 10:54:50 prednisone 10 mg tablets in a dose pack 2023 [address] [facility], [address] [place] [address], [id number], 4 10:54:50 Patient TargetsNo targets recorded. Patient InstructionsNo instructions recorded. Reason for Referral Physical Therapist Referral for Pain of right shoulder joint Please teach home program Please contact patient to schedule Referring Physician: Cheikh Humphries, Orthopedic Surgery, Encounter Date: 11/04/2023 Results Created Date Observation Date Name Description Value Unit Range Abnormal Flag Note LastModifiedBy Organization Detail LastModifiedTime 11/26/19 23 XR, hip + pelvi s, bilat eral No observ ation record ed. [id number] [facility] [address], [place], [address], 12/18/2022 15:45:32 11/04/19 24 XR, shoul gloria No observ ation record ed. [email or web address] [facility] [address], [place], [address], 11/04/2023 10:53:02 Result Notes None recorded. Problems Name Problem SNOMED Code Status Onset Date Resolution Date Notes Provider Name and Address Organization Details Recorded Time Pain in left sacroiliac joint 6089981096208 9102 Active 2022 Not Available [facility] 3 15:43:19 Pain in right sacroiliac joint 1693288387083 9107 Active 2022 Not Available [facility] 3 15:43:19 Pain of bilateral hip joints 0786439910450 9100 Active 2022 Not Available [facility] 3 15:43:20 Cellulitis 734284569 Active Not Available [facility] 3 15:43:20 Folliculit is 49871261 Active Not Available [facility] 3 15:43:20 Pain of right shoulder joint 5445025290562 9100 Active 2020 Not Available [facility] 3 15:43:20 Morbid obesity 909222474 Active 2022 Not Available [facility] 3 15:43:20 Edema 661035332 Active Not Available [facility] 3 15:43:20 Infection of toe 525042443 Active Not Available [facility] 3 15:43:20 Hypertrigl yceridemia 924672563 Active Not Available [facility] 3 15:43:20 Trochanter ic bursitis of left hip 4615088774747 03 Active 2022 Not Available [facility] 3 15:43:20 Trochanter ic bursitis of right hip 1818102515403 00 Active 2022 Not Available [facility] 3 15:43:21 Depressive disorder 24122841 Active Not Available [facility] 3 15:43:21 Sinusitis 26216196 Active Not Available [facility] 3 15:43:21 Neuropathy 478379434 Active Not Available [facility] 3 15:43:21 Onychomyco sis of toenails 180678711 Active Not Available [facility] 3 15:43:21 Obesity 202618123 Active Not Available [facility] 3 15:43:21 Furuncle 136547168 Active Not Available [facility] 3 15:43:21 Pain of shoulder region 64873384 Active Not Available [facility] 3 15:43:21 Anxiety 52177950 Active Not Available [facility] 3 15:43:22 Upper respirator y infection 38686221 Active Not Available [facility] 3 15:43:22 Essential hypertensi on 80352224 Active Not Available [facility] 3 15:43:22 Urinary tract infectious disease 27014225 Active Not Available [facility] 3 15:43:22 Diabetes mellitus 73182633 Active Not Available [facility] 3 15:43:22 Conjunctiv itis 5128720 Active Not Available [facility] 3 15:43:22 Tendinitis of right rotator cuff 3287349732133 9104 Active 2023 JOEL Reyna [address], [address], [place], [address] , [facility] [employer] [facility] 4 10:53:47 Impingemen t syndrome of right shoulder region 5639231644721 02 Active 2023 JOEL Reyna [address], [address], [place], [address] , [facility] 4 10:53:54 Osteoarthr itis of right acromiocla vicular joint 6893551243998 104 Active 2023 JOEL Reyna [address], [address], [place], [address] , [facility] 4 10:54:04 Problem Notes None recorded. Procedures Surgical History Date Name Laterality Status Provider Name and Address Organization Details Recorded Time delivery completed Not Available [facility] 12/18/2022 15:41:15 Adenoid Surgery completed Not Available [facility] 12/18/2022 15:41:15 Imaging Results Imaging Date Name Status LastModified by Organiz ation Details LastModified Time 11/26/2022 XR, hip + pelvis, bilateral completed [id number] [facility] [address] [facility], [place], [address], 12/18/2022 15:45:32 11/04/2023 XR, shoulder completed [email or web address] [facility] [place] [address] [facility], [place], [address], 11/04/2023 10:53:02 Procedure Notes None recorded. Medical Equipment None Reported. Allergies Allergen ID Allergen Name Allergen Category Reaction Reaction Severity Criticality Documentation Date Start Date Code Code System Note Provider Name and Address Organization Details Recorded Time 76791 trazodone medicatio n Not available Not available Not available 12/18/2022 25997 RxNorm Not Available [facility] 3 15:45:27 51278 tramadol medicatio n nausea Not available Not available 12/18/2022 98074 RxNorm Not Available [facility] 3 15:45:27 43700 Product containin g penicilli n (product) medicatio n other Not available Not available 12/18/2022 97021 8001 SNOMED Yeast Infec tion Not Available [facility] 3 15:45:27 Medications Name Sig Start Date Stop Date Status Note LastModified by Organization Details LastModified Time cyclobenz aprine 10 mg tablet TAKE ONE TABLET BY MOUTH EVERY 8 HOURS active Not Available Not Available No t Available fluconazo le 100 mg tablet TAKE 1 TABLET BY MOUTH ONCE DAILY AFTER A MEAL FOR 30 DAYS 12/19 completed Not Available Not Available Not Available bupropion HCl SR 150 mg tablet,12 hr sustained -release Take 1 tablet twice a day by oral route for 30 days. 03/18 completed Not Available Not Available Not Available prednison e 10 mg tablet TAKE ONE TABLET BY MOUTH THREE TIMES DAILY FOR 3 DAYS THEN TWICE DAILY FOR 2 DAYS THEN EVERY DAY FOR ONE DAY active Not Available Not Available No t Available gabapenti n 600 mg tablet Take 1 tablet 3 times a day by oral route. active cheaper to get the 300mg and take 2 tabs tid Not Available Not Available Not Available clindamyc in HCl 300 mg capsule TK ONE C PO Q 6 H FOR 10 DAYS active Not Available Not Available No t Available lisinopri l 20 mg-hydroc hlorothia zide 12.5 mg tablet active Not Available Not Available No t Available ibuprofen 800 mg tablet Take 1 tablet 3 times a day by oral route. 12/18 completed Not Available Not Available Not Available tizanidin e 4 mg tablet TAKE ONE TABLET BY MOUTH EVERY 6 HOURS NEEDED FOR MUSCLE SPASMS active Not Available Not Available No t Available fluconazo le 150 mg tablet TAKE ONE TABLET BY MOUTH EVERY DAY FOR 2 DAYS active Not Available Not Available No t Available benzonata te 200 mg capsule TAKE ONE CAPSULE THREE TIMES DAILY active Not Available Not Available No t Available hydrocodo ne 5 mg-acetam inophen 325 mg tablet Take 1 tablet 3 times a day by oral route as needed. active Not Available Not Available No t Available Keflex 500 mg capsule Take 1 capsule 4 times a day by oral route. active Not Available Not Available No t Available fluconazo le 200 mg tablet TAKE ONE TABLET BY MOUTH EVERY DAY FOR 15 DAYS active Not Available Not Available No t Available meloxicam 15 mg tablet active Not Available Not Available Not Available lisinopri l 20 mg tablet TAKE ONE TABLET TWICE DAILY active Not Available Not Available No t Available bupivacai ne HCl 0.5 % (5 mg/mL) injection solution Take 20 mg by injectio n route. 2023 active Not Available Not Available Not Avai lable prednison e 20 mg tablet TAKE THREE TABLETS BY MOUTH EVERY DAY FOR 3 DAYS active Not Available Not Available No t Available Zithromax Z-Sylvain 250 mg tablet Take 2 TABLET EVERY DAY by oral route for 1 day. then 1 tab a day for 4 days active Not Available Not Available No t Available meclizine 12.5 mg tablet TAKE ONE TABLET BY MOUTH THREE TIMES DAILY NEEDED FOR NAUSEA active Not Available Not Available No t Available fexofenad ine 180 mg tablet TAKE ONE TABLET BY MOUTH EVERY DAY FOR ALLERGIE S active Not Available Not Available No t Available Ciloxan 0.3 % eye drops INSTILL 1 DROP INTO AFFECTED EYE(S) BY OPHTHALM IC ROUTE EVERY 2 HOURSWHI LE AWAKE FOR 2 DAYS THEN 1 DROP EVERY 4 HRS WHILE AWAKE FOR 5 DAYS active Not Available Not Available No t Available sulfameth oxazole 800 mg-trimet hoprim 160 mg tablet TAKE 1 TABLET BY MOUTH TWICE DAILY active Not Available Not Available No t Available tramadol 50 mg tablet TAKE ONE TABLET BY MOUTH EVERY 8 HOURS NEEDED active Not Available Not Available No t Available bupropion HCl SR 100 mg tablet,12 hr sustained -release Take 1 tablet(s ) twice a day by oral route 12/18 completed Not Available Not Available Not Available glimepiri de 2 mg tablet Take 1 tablet(s ) twice a day by oral route. 12/18 completed Not Available Not Available Not Available prednison e 10 mg tablets in a dose pack Take 1 tab by mouth, 3 times a day for 3 daysTake 1 tab by mouth 2 times a day for 2 daysTake 1 tab by mouth once a day for 1 day 2023 active Not Available Not Available Not Avai lable meloxicam 7.5 mg tablet TAKE ONE TABLET BY MOUTH EVERY DAY WITH FOOD 11/26 completed Not Available Not Available Not Available terbinafi ne HCl 250 mg tablet TAKE ONE TABLET BY MOUTH EVERY DAY active Not Available Not Available No t Available citalopra m 20 mg tablet TAKE 1 TABLET BY MOUTH EVERY NIGHT AT BEDTIME NEEDED active Not Available Not Available No t Available lorazepam 0.5 mg tablet TAKE ONE TABLET BY MOUTH TWICE A DAY NEEDED 12/18 completed Not Available Not Available Not Available gabapenti n 800 mg tablet TAKE ONE TABLET THREE TIMES DAILY NEEDED active Not Available Not Available No t Available trazodone 100 mg tablet 1 tablet as needed use Sparingl y 12/18 completed 07/04/15 states not allergic Not Available Not Available Not Available Kenalog 10 mg/mL suspensio n for injection Take 20 mg by injectio n route. 2023 active [facility]: 0003-049 4-20 Not Available Not Available Not Available benzonata te 100 mg capsule Take 2 capsules 3 times a day by oral route for 7 days. active Not Available Not Available No t Available gemfibroz il 600 mg tablet Take 1 tablet twice a day by oral route. 12/18 completed Not Available Not Available Not Available metformin 1,000 mg tablet TAKE ONE TABLET BY MOUTH TWICE DAILY active Not Available Not Available No t Available glimepiri de 4 mg tablet TAKE ONE TABLET BY MOUTH TWICE DAILY active Not Available Not Available No t Available lidocaine 5 % topical patch APPLY ONE PATCH TO THE SKIN ON THE MOST PAINFUL AREA FOR UP TO 12 HOURS 11/26 completed Not Available Not Available Not Available gabapenti n 300 mg capsule TAKE TWO CAPSULES BY MOUTH THREE TIMES A DAY 12/18 completed Not Available Not Available Not Available lisinopri l 20 mg-hydroc hlorothia zide 25 mg tablet Take 1 tab qd 12/18 completed Not Available Not Available Not Available monteluka st 10 mg tablet TAKE ONE TABLET BY MOUTH EVERY DAY FOR ALLERGIE S active Not Available Not Available No t Available hydrochlo rothiazid e 25 mg tablet TAKE ONE TABLET DAILY FOR FLUID RETENTIO N active Not Available Not Available No t Available mupirocin 2 % topical ointment apply a SMALL AMOUNT TO AFFECTED AREAS THREE TIMES DAILY FOR 7 DAYS active Not Available Not Available No t Available furosemid e 20 mg tablet TAKE ONE TABLET BY MOUTH EVERY DAY NEEDED FOR FLUID RETENTIO N active Not Available Not Available No t Available gabapenti n 100 mg capsule Take 1 capsule twice a day by oral route. 07/05 completed Not Available Not Available Not Available polyethyl chen glycol 3350 17 gram/dose oral powder dissolve contents of one capful in EIGHT ounces of liquid ONCE daily BEFORE breakfas t FOR 10 DAYS active Not Available Not Available No t Available levofloxa dena 500 mg tablet TAKE ONE TABLET DAILY FOR 7 DAYS WITH A MEAL AND A PROBIOTI C active Not Available Not Available No t Available Prozac 10 mg capsule Take 1 capsule every day by oral route. active Not Available Not Available No t Available pioglitaz one 30 mg tablet TAKE ONE TABLET BY MOUTH EVERY DAY FOR DIABETES active Not Available Not Available No t Available lisinopri l 40 mg tablet TAKE 1/2 TABLET BY MOUTH TWICE DAILY active Not Available Not Available No t Available Enulose 10 gram/15 mL oral solution take 15ml BY MOUTH DAILY NEEDED active Not Available Not Available No t Available amoxicill in 875 mg-potass ium clavulana te 125 mg tablet TAKE ONE TABLET TWICE DAILY UNTIL ALL TAKEN active Not Available Not Available No t Available neomycin- polymyxin -hydrocor t 3.5 mg-10,000 unit/mL-1 % ear drops,brad p INSTILL TWO DROPS IN LEFT EAR FOUR TIMES DAILY active Not Available Not Available No t Available cyclobenz aprine 5 mg tablet TAKE ONE TABLET BY MOUTH EVERY 8 HOURS active Not Available Not Available No t Available Cymbalta 30 mg capsule,d elayed release Take 1 capsule by mouth qd active Not Available Not Available No t Available lidocaine (PF) 10 mg/mL (1 %) injection solution In office injectio n administ ered by the provider 11/26 completed [facility]: 0409-427 04-05 Not Available Not Available Not Available Januvia 100 mg tablet TAKE ONE TABLET BY MOUTH EVERY DAY FOR DIABETES active Not Available Not Available No t Available Lantus Solostar U-100 Insulin 100 unit/mL (3 mL) subcutane ous pen active Not Available Not Available Not Available fenofibri c acid (choline) 135 mg capsule,d elayed release Take 1 capsule every day by oral route as directed for 30 days. active Not Available Not Available No t Available ropivacai ne (PF) 5 mg/mL (0.5 %) injection solution In office injectio n administ ered by the provider active [facility] 60283-10 01-18 Not Available Not Available Not Available OneTouch Verio test strips USE DIRECTED ONCE DAILY active Not Available Not Available No t Available Invokana 300 mg tablet Take 1 tablet(s ) every day by oral route. 12/18 completed Not Available Not Available Not Available Trulicity 1.5 mg/0.5 mL subcutane ous pen injector active Not Available Not Available Not Available Trulicity 0.75 mg/0.5 mL subcutane ous pen injector INJECT 0.75MG (0.5ML) UNDER THE SKIN EVERY WEEK DIRECTED active Not Available Not Available No t Available TRUEplus Pen Needle 31 gauge x 5/16 USE 1 TWICE DAILY DIRECTED 12/19 completed Not Available Not Available Not Available TRUEplus Pen Needle 31 gauge x 3/16 active Not Available Not Available Not Available baclofen 5 mg tablet TAKE ONE TABLET EVERY NIGHT AT BEDTIME. DO NOT TAKE AT SAME TIME GABAPENT IN active Not Available Not Available No t Available OneTouch Delica Plus Lancet 30 gauge USE TO CHECK BLOOD SUGAR ONCE daily active Not Available Not Available No t Available OneTouch Verio Reflect Meter USE TO CHECK BLOOD SUGAR active Not Available Not Available No t Available Ozempic 0.25 mg or 0.5 mg (2 mg/3 mL) subcutane ous pen injector INJECT 0.25 UNDER THE SKIN EVERY WEEK FOR ONE MONTH, THEN increase TO 0.5mg EVERY WEEK active Not Available Not Available No t Available Vitals Date Recorded Body mass index (BMI) Body height Oxygen saturation Oxygen saturation in Arterial blood by Pulse oximetry Heart rate Body temperature Body weight Systolic blood pressure Diastolic blood pressure Provider Name and Address Organization Details Last Updated DateTime 1 48.1 kg/m2 162.56 cm 97 % 97 % 98 /min 97.6 [degF] 045783. 86 g 118 mm[Hg] 76 mm[Hg] Not Available [facility] 3 15:42:59 Date Recorded Body mass index (BMI) Body height Oxygen saturation Oxygen saturation in Arterial blood by Pulse oximetry Heart rate Respiratory rate Body temperature Body weight Systolic blood pressure Diastolic blood pressure Provider Name and Address Organization Details Last Updated DateTime 1 48.1 kg/m2 162.56 cm 97 % 97 % 98 /min 14 /min 97.6 [degF] 253626. 86 g 118 mm[Hg] 76 mm[Hg] Not Available [facility] 3 15:42:59 Date Recorded Body mass index (BMI) Body height Body weight Provider Name and Address Organization Details Last Updated DateTime 11/26/2022 61.5 kg/m2 138.43 cm 559352.02 g Not Available [facility] 12/18/2022 15:43:04 Date Recorded Body height Body mass index (BMI) Body weight Provider Name and Address Organization Details Last Updated DateTime 11/04/2023 163.83 cm 41.9 kg/m2 053152.91 g MILAGROS Cisneros - [place] [facility] [facility] 11/04/2023 10:11:27 Social History Question Answer Notes LastModified by Organizat ion Details LastModified Time Tobacco Smoking Status Never Smoker Not Available [facility] 12/18/2022 15:41:13 In The 14 Days Before Symptom Onset, Have You Had Close Contact With A Laboratory-confirm ed COVID-19 While That Case Was Ill? No [id number] Information not available 12/18/2022 In The 14 Days Before Symptom Onset, Have You Had Close Contact With A Person Who Is Under Investigation For COVID-19 While That Person Was Ill? No [id number] Information not available 12/18/2022 What Was The Date Of Your Most Recent Tobacco Screening? 12/19/2020 [id number] Information not available 12/18/2022 Sex: Unknown Functional Status Question Answer Note LastModified by Organizat ion Details LastModified Time What is your level of alcohol consumption? 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 Family History Relationship Description Onset Age of this Age Resolved Age Notes LastModified by Organization Details LastModified Time Unspecified Relation Diabetes mellitus [id number] Not available 12/18/2022 15:41:16 Mother Family history of malignant neoplasm [id number] Not available 12/18/2022 15:41:16 Medical History Condition Response ARTHRITIS Y DIABETES, TYPE Y BLOOD CLOTS Y USE OF NSAIDS Y HYPERTENSION Y Metal allergy Y Gynecological HistoryNo gynecological history recorded. Obstetrics History GPAL:G 0 P 0 0 0 0 Immunizations Vaccine Type Date Status Note Provider Nam e and Address Organization Details Recorded Time Influenza, high-dose, trivalent, PF 3 completed Not Available [facility] 12/18/2022 15:45:24 Pneumococcal conjugate PCV 13 5 completed Not Available [facility] 12/18/2022 15:45:24 Influenza, high-dose, trivalent, PF 5 completed Not Available [facility] 12/18/2022 15:45:25 Influenza, split virus, quadrivalent, preservative 6 completed Not Available [facility] 12/18/2022 15:45:25 Past Encounters Encounter ID Performer Location Encounter Start Date Encounter Closed Date Diagnosis/Indication Diagnosis SNOMED-CT Code Diagnosis ICD10 Code Diagnosis Note [id number] Gaudencio Pina MD [facility] [address] 12/19/2020 00:00:00 12/19/2020 09:33:14 [id number] [facility] General Surgery [address] [address] 02/27/2021 00:00:00 02/27/2021 16:00:35 [id number] [facility] General Surgery [address] [address] 04/03/2021 00:00:00 04/05/2021 13:45:08 [id number] Gaudencio Pina MD [address] [address] 11/26/2022 00:00:00 11/26/2022 10:58:32 [id number] Blas Sandhu MD [address] [address] 11/04/2023 10:05:51 11/04/2023 10:38:28 Pain of right shoulder joint 7919192601 9020140 M25.511 Tendinitis of right rotator cuff 7504301493 6388456 M67.813 Impingemen t syndrome of right shoulder region 5434903928 83546 M75.41 Osteoarthr itis of right acromioclavicular joint 7834708145 524311 M19.011 Health Concerns Section Related Observation LastModified by Organization Detai ls LastModified Time None Recorded Concern Status LastModified by Organization Details LastModified Time None Recorded Advance Directives Directive None Recorded Payers Encounter Date Sequence Insurance Name Policy Number Policy Harmon Covered Member ID Harmon Member ID Guarantor Name 11/04/2023 1 [facility] (MEDICARE REPLACEMENT/A DVANTAGE - PPO) [id number] Brianne Bear [id number] Brianne Bear 11/04/2023 2 [place] [id number] Brianne Bear [id number] Brianne Bear Notes Date Note Type Note Provider Name and Address Organization Details Recorded Time 12/19/2020 text/html ShoulderReported bypatient.Location:an terior; lateral Quality:aching; throbbing; frequent Severity:moderate Timing:cannot identify; recurrent; occasional Duration:continuous since onset Aggravating Factors:carrying; pushing/pulling; throwing; damp weather Alleviating Factors:ice; rest; elevation; stretching; NSAIDs Associated Symptoms:no numbness; no tingling; no redness; no ecchymosis; no catching/locking; no buckling; no grinding; no instability; no radiation down arm; no drainage; no fever; no chills; no weight loss; no change in bowel/bladder habits;weakness;swell ing;warmth;popping/cl icking Not Available [facility] 12/19/2020 09:33:14 11/26/2022 text/html Back PainReporte d bypatient.Location:pa in radiating to the buttocks Quality:dull Severity:worsening Duration:chronic Context:unusual activity; prior back problems Associated Symptoms:no fever; no weak limbs; no numbness of the legs/feet; no tingling; no incontinence; no shortness of breathHip(s)Reported bypatient.Location:la teral Quality:throbbing; superficial; frequent Severity:moderate Duration:continuous since onset Timing:occasional Context:overuse Alleviating Factors:lying down; heat; ice; rest; exercise; limited weight bearing Aggravating Factors:standing; walking; bending/squatting Associated Symptoms:no numbness; no redness; no ecchymosis; no catching/locking; no popping/clicking; no buckling; no grinding; no instability; no radiation down leg; no drainage; no fever; no chills; no weight loss; no change in bowel/bladder habits;weakness;swell ing Not Available [facility] 11/26/2022 10:58:32 11/04/2023 text/html Patient returns with an acute flare of right shoulder pain. She has had chronic issues over the years we have not seen her for couple of years now for her shoulder. The patient states that her right shoulder has been bothering her for several months now getting worse with time. It does keep her awake at night she has trouble with aching pain states it feels a little weak here and there is well. She put some ice on it this helped somewhat she also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
== END 2025-03-07 08:10 | disposition home or self-care (01) ==
LOC: ANHIMG 08:14
PROVIDERS: PCP Emergency Medicine; Visit Provider Emergency Medicine
DX: Z12.31 Encounter for screening mammogram for malignant neoplasm of breast (principal)
CPT/HCPCS: 77063; 77067

== ENCOUNTER 2025-04-26 17:51 | Emergency (ER) | payer MEDICARE, SELFPAY ==
--- NOTE | ~2025-04-26 | CT_ITS ---
Procedure: CT knee RT wo con Ordering provider: Isha Castillo PA-C History: . abnml xray . Comparison: None. Technique: Thin slice axial CT of the No IV contrast was given. Sagittal and coronal reformatted imag es were also obtained and reviewed. Radiation reduction technique utilized.The dose-length product wa s 469.54 mGy-cm. Findings: BONES: Interruption seen in the posterior cortex of the medial tibial plateau which may be a fracture or nutrient vessel. Evaluation for tenderness in the area and follow-up is advised. JOINT SPACES: Mild osteoarthritic changes with marginal osteophytes in the knee and patella. SOFT TISSUES: . Joint effusion is noted. IMPRESSION: Interruption seen in the posterior cortex of the medial tibial plateau. Clinical correlation and foll ow-up advised. Minimal joint effusion. Reviewed, dictated and finalized at location A. IMPRESSION: Interruption seen in the posterior cortex of the medial tibial plateau. Clinica l correlation and follow-up advised. Minimal joint effusion.
--- NOTE | ~2025-04-26 | XR_ITS ---
XR knee RT min 4V Ordering provider: Phyllis Moeller MD History: . have a lump, felt a pop . Comparison: None. FINDINGS: BONES: Possible lucency inferior to the tibial spine laterally in the area of the medial condyle. CT evaluation advised. JOINT SPACES: Normal. Marginal osteophytes seen in the knee and patella. SOFT TISSUES: Normal. IMPRESSION: Possible lucency in the area inferior to the tibial spines. CT evaluation advised. Reviewed, dictated and finalized at location A. IMPRESSION: Possible lucency in the area inferior to the tibial spines. CT evaluation advis ed.
--- NOTE | ~2025-04-26 | US_ITS ---
RIGHT LOWER EXTREMITY VENOUS ULTRASOUND Ordering provider: Isha Castillo PA-C History: . r posteiror knee/leg pain . Comparison: None. FINDINGS: --COMMON FEMORAL: Patent and free of thrombus. Normal compressibility, phasic flow and augmentation. --PROXIMAL SUPERFICIAL FEMORAL: Patent and free of thrombus. Normal compressibility, phasic flow and augmentation. --DISTAL SUPERFICIAL FEMORAL: Patent and free of thrombus. Normal compressibility, phasic flow and au gmentation. --POPLITEAL: Patent and free of thrombus. Normal compressibility, phasic flow and augmentation. --POSTERIOR TIBIAL: Patent and free of thrombus. Normal compressibility, phasic flow and augmentation . Henderson's cyst is seen in the popliteal fossa measuring 4.9 x 0.9 x 1.9 cm. IMPRESSION: Negative right lower extremity venous US. No deep vein thrombosis. Reviewed, dictated and finalized at location A.
--- OUTSIDE RECORDS SUMMARY | 2025-04-26 17:52 | XMS_ITS | Clinical Summary ---
Author Organization [facility] Address [address] [place] [address] Care Team Providers Care Detective Homicide Squad Name Role Phone Chato Hernandez MD Primary Care Provider [phone] Source Comments [facility],non-owned Affiliates and Associated Physician Practices is amultiple site organization consisting of ambulatory clinics and hospital sitesin [place], [place], [place] and [place]. This disclosure is being madepursuant to the Care Everywhere program and may not contain all information available regarding this patient. Last updated 18.[facility] Allergies No known active allergies Medications * [...] 8:02 AM CDT Height 162.6 cm (5' 4) 08/04/2023 8:02 AM CDT Body Mass Index [...] DIABETES RETINOPATHY SCREENING 05/07/2025 05/07/2023 INFLUENZA VACCINE (#1) 2025 , 08/20/2022, 07/15/2019, Additional history exists HEPATITIS B [...] Not Established ug/mL 08/04/2023 10:58 AM CDT [facility] Creatinine Urine 60.60 Not Established mg/dL 08/04/2023 10:58 AM CDT [facility] Urine Albumin/Creati nine Ratio 15 <30 mg/g 08/04/2023 10:58 AM CDT [facility] Urine URINE SPECIMEN OBTAINED BY CLEAN CATCH PROCEDURE / Unknown Collection / Unknown 08/04/2023 9:49 AM CDT 08/04/2023 10:17 AM CDT Robbi Haskins MD LAB - URINE CHEMISTRY ORDERAB LES Final Result Performing Organization Address City/State/[facility] Co de Phone Number [facility] [address] [place] [phone], [facility] [phone] * (ABNORMAL) HEMOGLOBIN A1C (08/04/2023 9:42 AM CDT) Hemoglobin A1c 9.7(H) <=5.6 % 08/06/2023 11:28 AM CDT [facility] Estimated Average Glucose 232 mg/dL 08/06/2023 11:28 AM T [facility] Comment: HbA1c Interpretation: Normal : < 5.7% Pre-diabetes: 5.7-6.4% Diabetes: Equal to or greater than 6.5% Test results diagnostic of diabetes should be repeated for confirmation. Treatment target values recommended by ADA and other clinical organizations should be used to evaluate metabolic control in patients. Reference: [place] [employer], Standards of Care in Diabetes [...] LAB - CHEMISTRY ORDERABLES Fi nal Result [facility] [address] [place] [address], [facility] [phone] * (ABNORMAL) COMPREHENSIVE METABOLIC PANEL (08/04/2023 9:42 AM CDT) BUN 13 7 - 26 mg/dL 08/04/2023 10:52 AM [facility] Creatinine 0.92 0.56 - 0.96 mg/dL 08/04/2023 10:52 AM [facility] Sodium 137 136 - 145 mmol/L 08/04/2023 10:52 AM [facility] Potassium 4.5 3.5 - 4.5 mmol/L 08/04/2023 10:52 AM [facility] Chloride 102 98 - 107 mmol/L 08/04/2023 10:52 AM [facility] CO2 25 22 - 29 mmol/L 08/04/2023 10:52 AM [facility] Glucose 216(H) 70 - 115 mg/dL 08/04/2023 10:52 AM [facility] Calcium 9.7 8.4 - 10.2 mg/dL 08/04/2023 10:52 AM [facility] Protein Total 7.4 6.0 - 8.3 g/dL 08/04/2023 10:52 AM [facility] Albumin 3.9 3.4 - 5.0 g/dL 08/04/2023 10:52 AM [facility] Bilirubin Total 0.4 0.2 - 1.2 mg/dL 08/04/2023 10:52 AM [facility] Alkaline Phosphatase 86 40 - 150 U/L 08/04/2023 10:52 AM [facility] ALT 30 5 - 55 U/L 08/04/2023 10:52 AM [facility] AST 24 5 - 34 U/L 08/04/2023 10:52 AM CDT [facility] Anion Gap 10 6 - 16 08/04/2023 10:52 AM [facility] BUN/Creatinine Ratio 14 7 - 23 08/04/2023 10:52 AM T [facility] Osmolality Calculated 291 275 - 295 mOsm/kg 08/04/2023 10:52 AM [facility] Albumin/Globulin Ratio 1.1 1.1 - 2.3 08/04/2023 10:52 AM [facility] eGFR by CKD-EPI 70(L) >=90 mL/min/1.7 3 m2 08/04/2023 10:52 AM [facility] Blood BLOOD SPECIMEN / Unknown Lab Venipuncture / Unknown 08/04/2023 9:42 AM CDT 08/04/2023 10:20 AM CDT Robbi Haskins MD LAB - CHEMISTRY ORDERABLES nal Result [facility] [address] [place] [address], [facility] [phone] * EYE EXAM (05/07/2023) Anatomical Region Laterality Modality Other Historical Provider SCANNING ONLY Final Res ult from Last 3 Months or Most Recently Relevant to Health Maintenance Insurance MEDICARE MEDICAID - [place] Care Teams Detective Homicide Squad Relationship Specialty [place] [address] [place] [id number] PCP - General Internal Medicine 08/04/23
--- OUTSIDE RECORDS SUMMARY | 2025-04-26 17:52 | XMS_ITS | Continuity of Care Document ---
Author Organization [facility] Address [address] [place] [address] [place] [address] Phone Care Team Providers Care Paper Machine Supervisor Name Role Phone Francisco Brody DO Unavailable Unavailable Advance Directives Directive Yes / No Effective Date File Name No Information Encounters Encounter Description Practice Location Reason(s) For Visit Diagnoses Date Provider Providers Copied on Encounter [facility], [address], [place], [place], [id number], [place] tel:[phone] [facility] [place] No Information Ronn Alexandra. [address] [address] [facility], [place], [address], [place]. tel: [phone] Family History Family Member Type Diagnosis Age At Onset No Information Payers Payer name Insurance type Covered libertarian ID Authoriza tieugene(s) [employer] CI [id number] Social History Type Description Quantity Date Captured [...]
--- OUTSIDE RECORDS SUMMARY | 2025-04-26 17:53 | XMS_ITS | Clinical Summary ---
Author Organization [facility] Address [address] [place] [address] Care Team Providers Care Prepper Name Role Phone Chato Hernandez MD Primary Care Provider [phone] Allergies No known active allergies Medications acyclovir [...] 6:30 AM CDT Height 163.8 cm (5' 4.5) 05/19/2019 6:30 AM CDT Body Mass Index [...] patient's age to complete this topic Insurance [facility] Care Teams Prepper Relationship Specialty Start Date End Date Chato Hernandez MD [address] [place] [address] PCP - General INTERNAL MEDICINE 05/19/19
--- OUTSIDE RECORDS SUMMARY | 2025-04-26 17:53 | XMS_ITS | Data Portability ---
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 Plan of Treatment Reminders Order Date Submit Date Provider Last Modified By Organization Details Last Modified Time Details Appointments ANY 30 2024 02:30P M Dorina Garduno MD Not available Not available Not available Lab culture, urine 2024 025 [facility], [address] [facility], [address], [place], [address], 04/21/2025 06:19:59 lipid panel, serum 2024 025 [email or web address] [facility], [address] [facility], [address], [place], [address], 04/12/2025 09:42:28 HbA1c (hemoglob in A1c), blood 2024 025 jose In-Office Order, Internal Use Only DO Not Attach Compendium DO Not Attach Compendium, Do Not Delete/merge, [id number] 02/28/2025 16:38:51 urinalysi s complete, reflex culture 2024 025 [facility], [address] [facility], [address], [place], [address], 03/04/2025 17:19:55 hemoglobi n (Hb), fingersti ck, blood 2024 025 [email or web address] In-Office Order, Internal Use Only DO Not Attach Compendium DO Not Attach Compendium, Do Not Delete/merge, [id number] 11/04/2024 13:05:32 HbA1c (hemoglob in A1c), blood 2023 024 [facility], [address] [facility], [address], [place], [address], 11/05/2024 09:44:42 CMP, serum or plasma 2023 024 [place] [facility], [address] [place] [address], [address], [place], [address], 07/29/2024 10:13:57 albumin/c reatinine , mass ratio, urine 2023 024 [place] [facility], [address] [place] [address], [address], [place], [address], 07/29/2024 10:13:56 Referral gastroent erologist referral - family history of colon cancer, 2024 025 [facility], [address], [place], [address], 04/17/2025 04:07:58 Procedures None recorded. Surgeries None recorded. Imaging XR, hand - pain mainly in first MCP and PIP, also pain in left anatomica l snuff box [address] ([facility]), [address], [place], [address], 04/13/2025 09:53:30 DEXA 2024 025 [facility] (Imaging), [address], [place], [address], 03/28/2025 12:11:17 MAMMO, screening , digital, bilateral 2024 025 [facility] (Mammography) , [address], [place], [address], 03/07/2025 13:54:19 XR, hand - Pain bilateral MCP joints 2023 024 [facility] ([facility]), [address] [place], [address], 03/02/2025 11:39:00 XR, foot - diabetic, foot swelling and tendernes s over metatarsa l heads on exam 2023 024 [facility] ([facility]), [address] [place], [address], 03/02/2025 11:39:00 MAMMO, screening , digital, bilateral 2023 024 [facility] ([facility]), [address] [place], [address], 03/01/2025 13:43:16 Medication Orders Cipro 500 mg tablet 2024 025 [facility], [address] [place] [address], [id number], 04/21/2025 14:34:30 propranol ol 10 mg tablet 2024 025 [facility], [address] [place] [address], [id number], 03/01/2025 14:43:57 Trulicity 0.75 mg/0.5 mL subcutane ous pen injector 2024 025 [facility], [address] [place] [address], [id number], 04/13/2025 14:20:38 Trulicity 1.5 mg/0.5 mL subcutane ous pen injector 2024 025 [facility], [address] [place] [address], [id number], 03/23/2025 14:49:14 metformin 1,000 mg tablet 2024 025 [facility], [address] [place] [address], [id number], 01/12/2025 15:39:45 Ozempic 2 mg/dose (8 mg/3 mL) subcutane ous pen injector 2024 025 [facility], [address] [place] [address], [id number], 02/07/2025 15:24:04 gabapenti n 800 mg tablet 2024 025 [facility], [address] [place] [address], [id number], 01/12/2025 15:39:44 amitripty line 25 mg tablet [address] [facility], [address] [place] [address], [id number], 02/28/2025 15:49:28 Flonase Allergy Relief 50 mcg/actua tion nasal spray,brad pension 2024 025 [facility], [address] [place] [address], [id number], 12/14/2024 16:09:20 Augmentin 500 mg-125 mg tablet [address] [facility], [address] [place] [address], [id number], 02/28/2025 15:43:15 hydrochlo rothiazid e 25 mg tablet 2024 025 [facility], [address] [place] [address], [id number], 01/12/2025 15:39:45 lisinopri l 20 mg tablet 2024 025 [facility], [address] [place] [address], [id number], 01/12/2025 15:39:45 Ozempic 2 mg/dose (8 mg/3 mL) subcutane ous pen injector 2023 024 [facility], [address] [place] [address], [id number], 09/30/2024 15:43:51 Patient TargetsNo targets recorded. Patient Instructions Encounter Date Encounter Id Patient Instructions Last Modified By Organization Details Last Modified Time 04/27/2024 [id number] A healthy lifestyle: care instructions jose Not available 04/27/2024 15:11:47 Reason for Referral Pipe Turner Referral for Screening for malignant neoplasm of colon family history of colon cancer, Referring Physician: Dorina Garduno, Family Medicine, Encounter Date: 11/04/2024 Results Created Date Observation Date Name Description Value Unit Range Abnormal Flag Note LastModifiedBy Organization Detail LastModifiedTime 04/15/20 24 04/18/2024 URINE CULTU RETERRY NE urine culture, routine FINAL REPORT abnormal Not Available [facility] ([facility]) [address] [facility], [place], [address], 04/18/2024 13:07:36 04/15/20 24 04/18/2024 URINE CULTU [...] Prote us mirab ilis. Not Available [facility] ([facility]) [address] [facility], [place], [address], 04/18/2024 13:07:36 04/15/20 24 04/18/2024 URINE CULTU [...] thopr im/Connelly lfa R Not Available [facility] ([facility]) [address] [facility], [place], [address], 04/18/2024 13:07:36 05/05/20 24 05/09/2024 URINE CULTU RE, ROUTI NE urine culture, routine FINAL REPORT abnormal Not Available [facility] ([facility]) [address] [facility], [place], [address], 05/09/2024 17:07:42 05/05/20 24 05/09/2024 URINE CULTU [...] ng units per mL Not Available [facility] ([facility]) [address] [place], [address], 05/09/2024 17:07:42 05/05/20 24 05/09/2024 URINE CULTU [...] R Vanco mycin S Not Available [facility] ([facility]) [address] [facility], [place], [address], 05/09/2024 17:07:42 07/28/20 24 07/29/2024 ALBUM IN/CR EATIN INE RATIO ,URIN E creatinine, urine 28.2 mg/dL notest ab. Not Available [facility] ([facility]) [address] [place], [address], 07/29/2024 10:13:56 07/28/20 24 07/29/2024 ALBUM IN/CR EATIN INE RATIO ,URIN E albumin, urine <3.0 ug/mL notest ab. Not Available [facility] ([facility]) [address] [place], [address], 07/29/2024 10:13:56 07/28/20 24 07/29/2024 ALBUM IN/CR EATIN INE RATIO ,URIN E alb/creat ratio <11 Kaylyn l: 0 - 29 Moder ately incre ased: 30 - 300 Sever royer incre ased: >300 Not Available [facility] ([facility]) [address] [facility] [place], [address], 07/29/2024 10:13:56 07/28/20 24 07/29/2024 COMP. METAB OLIC PANEL (14) glucose 126 mg/dL 70-99 above high normal Not Available [facility] ([facility]) [address] [facility] [place], [address], 07/29/2024 10:13:57 07/28/20 24 07/29/2024 COMP. METAB OLIC PANEL (14) BUN 20 mg/dL 8-27 Not Available [facility] ([facility]) [address] [facility] [place], [address], 07/29/2024 10:13:57 07/28/20 24 07/29/2024 COMP. METAB OLIC PANEL (14) creatinine 0.93 mg/dL 0.57-1 .00 Not Available [facility] ([facility]) [address] [place], [address], 07/29/2024 10:13:57 07/28/20 24 07/29/2024 COMP. METAB OLIC PANEL (14) eGFR 68 mL/mi n/1.7 3 >59 Not Available [facility] ([facility]) [address] [place], [address], 07/29/2024 10:13:57 07/28/20 24 07/29/2024 COMP. METAB OLIC PANEL (14) BUN/creatini ne ratio 22 12-28 Not Available [facility] ([facility]) [address] [place], [address], 07/29/2024 10:13:57 07/28/20 24 07/29/2024 COMP. METAB OLIC PANEL (14) sodium 136 mmol/ L 134-14 4 Not Available [facility] ([facility]) [address] [place], [address], 07/29/2024 10:13:57 07/28/20 24 07/29/2024 COMP. METAB OLIC PANEL (14) potassium 4.2 mmol/ L 3.5-5. 2 Not Available [facility] ([facility]) [address] [facility], [place], [address], 07/29/2024 10:13:57 07/28/20 24 07/29/2024 COMP. METAB OLIC PANEL (14) chloride 95 mmol/ L 96-106 below low normal Not Available [facility] ([facility]) [address] [facility], [place], [address], 07/29/2024 10:13:57 07/28/2007/29/2024 COMP. METAB OLIC PANEL (14) carbon dioxide, total 23 mmol/ L 20-29 Not Available [facility] ([facility]) [address] [facility], [place], [address], 07/29/2024 10:13:57 07/28/20 24 07/29/2024 COMP. METAB OLIC PANEL (14) calcium 9.4 mg/dL 8.7-10 .3 Not Available [facility] ([facility]) [address] [facility] [place], [address], 07/29/2024 10:13:57 07/28/20 24 07/29/2024 COMP. METAB OLIC PANEL (14) protein, total 6.7 g/dL 6.0-8. 5 Not Available [facility] ([facility]) [address] [facility], [place], [address], 07/29/2024 10:13:57 07/28/20 24 07/29/2024 COMP. METAB OLIC PANEL (14) albumin 4.4 g/dL 3.9-4. 9 Not Available [facility] ([facility]) [address] [facility], [place], [address], 07/29/2024 10:13:57 07/28/20 24 07/29/2024 COMP. METAB OLIC PANEL (14) globulin, total 2.3 g/dL 1.5-4. 5 Not Available [facility] ([facility]) [address] [place], [address], 07/29/2024 10:13:57 07/28/20 24 07/29/2024 COMP. METAB OLIC PANEL (14) bilirubin, total 0.2 mg/dL 0.0-1. 2 Not Available [facility] ([facility]) [address] [place], [address], 07/29/2024 10:13:57 07/28/2007/29/2024 COMP. METAB OLIC PANEL (14) alkaline phosphatase 83 IU/L 44-121 Not Available [facility]) [address] [place], [address], 07/29/2024 10:13:57 07/28/20 24 07/29/2024 COMP. METAB OLIC PANEL (14) AST (SGOT) 25 IU/L 0-40 Not Available [facility] ([facility]) [address] [place], [address], 07/29/2024 10:13:57 07/28/20 24 07/29/2024 COMP. METAB OLIC PANEL (14) ALT (SGPT) 20 IU/L 0-32 Not Available [facility] ([facility]) [address] [place], [address], 07/29/2024 10:13:57 08/25/20 24 08/28/2024 URINE CULTU TERRY CAREY urine culture, routine FINAL REPORT abnormal Not Available [facility] ([facility]) [address] [place], [address], 08/28/2024 07:36:08 08/25/20 24 08/28/2024 URINE CULTU RETERRY result 1 KLEBSI KAJAL OXYTOC A abnormal 50,00 0-100 ,000 colon y formi ng units per mL Not Available [facility] ([facility]) [address] [facility], [place], [address], 08/28/2024 07:36:08 08/25/20 24 08/28/2024 URINE CULTU [...] thopr im/Connelly lfa S Not Available [facility] ([facility]) [address] [facility], [place], [address], 08/28/2024 07:36:08 08/25/20 24 08/25/2024 urina lysis , dipst ick Leukocytes Large Not Available In-Offi ce Order Internal Use Only DO Not Attach Compendium DO Not Attach Compendium, Do Not Delete/merge, [id number] 08/25/2024 14:25:11 08/25/20 24 08/25/2024 urina lysis , dipst ick Nitrite positi ve Not Available In-Office Order Internal Use Only DO Not Attach Compendium DO Not Attach Compendium, Do Not Delete/merge, [id number] 08/25/2024 14:25:11 08/25/20 24 08/25/2024 urina lysis , dipst ick Urobilinogen 4 Not Available In-Of fice Order Internal Use Only DO Not Attach Compendium DO Not Attach Compendium, Do Not Delete/merge, [id number] 08/25/2024 14:25:11 08/25/20 24 08/25/2024 urina lysis , dipst ick Protein 100 Not Available In-Office Order Internal Use Only DO Not Attach Compendium DO Not Attach Compendium, Do Not Delete/merge, 08/25/2024 14:25:11 08/25/20 24 08/25/2024 urina lysis , dipst ick pH 5.0 Not Available In-Office Order Internal Use Only DO Not Attach Compendium DO Not Attach Compendium, Do Not Delete/merge, 08/25/2024 14:25:11 08/25/20 24 08/25/2024 urina lysis , dipst ick Blood Negati ve Not Available In-Office Order Internal Use Only DO Not Attach Compendium DO Not Attach Compendium, Do Not Delete/merge, 08/25/2024 14:25:11 08/25/20 24 08/25/2024 urina lysis , dipst ick Specific [place] 1.010 Not Available In-Off ice Order Internal Use Only DO Not Attach Compendium DO Not Attach Compendium, Do Not Delete/merge, 08/25/2024 14:25:11 08/25/20 24 08/25/2024 urina lysis , dipst ick Ketone Trace Not Available In-Office Order Internal Use Only DO Not Attach Compendium DO Not Attach Compendium, Do Not Delete/merge, 08/25/2024 14:25:11 08/25/20 24 08/25/2024 urina lysis , dipst ick Bilirubin Small Not Available In-Offic e Order Internal Use Only DO Not Attach Compendium DO Not Attach Compendium, Do Not Delete/merge, 08/25/2024 14:25:11 08/25/20 24 08/25/2024 urina lysis , dipst ick Glucose 100 Not Available In-Office Order Internal Use Only DO Not Attach Compendium DO Not Attach Compendium, Do Not Delete/merge, 08/25/2024 14:25:11 08/25/20 24 08/25/2024 urina lysis , dipst ick Appearance Clear Not Available In-Offi ce Order Internal Use Only DO Not Attach Compendium DO Not Attach Compendium, Do Not Delete/merge, 08/25/2024 14:25:11 08/25/20 24 08/25/2024 urina lysis , dipst ick Color [place] Not Available In-Office Order Internal Use Only DO Not Attach Compendium DO Not Attach Compendium, Do Not Delete/merge, [id number] 08/25/2024 14:25:11 11/04/19 25 11/04/2024 hemog lobin (Hb), finge rstic k, blood HGB 6.9 Not Available In-Office Order Internal Use Only DO Not Attach Compendium DO Not Attach Compendium, Do Not Delete/merge, [id number] 11/04/2024 12:07:26 02/29/20 25 03/01/2025 MICRO SCOPI C EXAMI NATIO N WBC 11-30 /hpf 0-5 abnormal Not Available [facility] ([facility]) [address] [facility], [place], [address], 03/04/2025 17:19:55 02/29/20 25 03/01/2025 MICRO SCOPI C EXAMI NATIO N RBC None seen /hpf 0-2 Not Available [facility] ([facility]) [address] [facility], [place], [address], 03/04/2025 17:19:55 02/29/20 25 03/01/2025 MICRO SCOPI C EXAMI NATIO N epithelial cells (non renal) 0-10 /hpf 0-10 Not Available [facility] ([facility]) [address] [facility], [place], [address], 03/04/2025 17:19:55 02/29/20 25 03/01/2025 MICRO SCOPI C EXAMI NATIO N casts None seen /lpf nonese en Not Available [facility] ([facility]) [address] [facility], [place], [address], 03/04/2025 17:19:55 02/29/20 25 03/01/2025 MICRO SCOPI C EXAMI NATIO N bacteria Modera te nonese en/few abnormal Not Available [facility] ([facility]) [address] [facility], [place], [address], 03/04/2025 17:19:55 02/29/20 25 03/01/2025 UA/M W/RFL X CULTU RE, ROUTI NE specific gravity 1.009 1.005- 1.030 Not Available [facility] ([facility]) [address] [facility], [place], [address], 03/04/2025 17:19:55 02/29/20 25 03/01/2025 UA/M W/RFL X CULTU RE, ROUTI NE pH 5.5 5.0-7. 5 Not Available [facility] ([facility]) [address] [facility], [place], [address], 03/04/2025 17:19:55 02/29/20 25 03/01/2025 UA/M W/RFL X CULTU RE, ROUTI NE urine-color YELLOW yellow Not Available [facility]) [address] [facility], [place], [address], 03/04/2025 17:19:55 02/29/20 25 03/01/2025 UA/M W/RFL X CULTU RE, ROUTI NE appearance CLEAR clear Not Available [facility] ([facility]) [address] [facility], [place], [address], 03/04/2025 17:19:55 02/29/20 25 03/01/2025 UA/M W/RFL X CULTU RE, ROUTI NE WBC esterase 1+ negati ve abnormal Not Available [facility] ([facility]) [address] [facility], [place], [address], 03/04/2025 17:19:55 02/29/20 25 03/01/2025 UA/M W/RFL X CULTU RE, ROUTI NE protein NEGATI VE negati ve/tra ce Not Available [facility] ([facility]) [address] [facility], [place], [address], 03/04/2025 17:19:55 02/29/20 25 03/01/2025 UA/M W/RFL X CULTU RE, ROUTI NE glucose NEGATI VE negati ve Not Available [facility] ([facility]) [address] [place], [address], 03/04/2025 17:19:55 02/29/20 25 03/01/2025 UA/M W/RFL X CULTU RE, ROUTI NE ketones NEGATI VE negati ve Not Available [facility] ([facility]) [address] [place], [address], 03/04/2025 17:19:55 02/29/20 25 03/01/2025 UA/M W/RFL X CULTU RE, ROUTI NE occult blood NEGATI VE negati ve Not Available [facility] ([facility]) [address] [place], [address], 03/04/2025 17:19:55 02/29/20 25 03/01/2025 UA/M W/RFL X CULTU RE, ROUTI NE bilirubin NEGATI VE negati ve Not Available [facility] ([facility]) [address] [place], [address], 03/04/2025 17:19:55 02/29/20 25 03/01/2025 UA/M W/RFL X CULTU RE, ROUTI NE urobilinogen ,semi-qn 0.2 mg/dL 0.2-1. 0 Not Available [facility] ([facility]) [address] [place], [address], 03/04/2025 17:19:55 02/29/20 25 03/01/2025 UA/M W/RFL X CULTU RE, ROUTI NE nitrite, urine NEGATI VE negati ve Not Available [facility] ([facility]) [address] [place], [address], 03/04/2025 17:19:55 02/29/20 25 03/01/2025 UA/M W/RFL X CULTU RE, ROUTI NE microscopic examination SEE BELOW: Micro scopi c was indic ated and was perfo rmed. Not Available [facility] ([facility]) [address] [facility], [place], [address], 03/04/2025 17:19:55 02/29/20 25 03/01/2025 UA/M W/RFL X CULTU RE, ROUTI NE urinalysis reflex COMMEN T This speci men has refle xed to a Urine Cultu re. Not Available [facility] ([facility]) [address] [place], [address], 03/04/2025 17:19:55 02/29/20 25 03/04/2025 URINE CULTU RE, ROUTI NE urine culture, routine Final report abnormal Not Available [facility] ([facility]) [address] [facility], [place], [address], 03/04/2025 17:19:57 02/29/2003/04/2025 URINE CULTU RE, ROUTI NE result 1 Escher ichia coli abnormal Susce ptibi lity profi le is consi stent with a proba ble ESBL. Multi -Drug Resis tant Organ ism Great er than 100,0 00 colon y formi ng units per mL Not Available [facility] ([facility]) [address] [facility], [place], [address], 03/04/2025 17:19:57 02/29/20 25 03/04/2025 URINE CULTU RE, ROUTI NE antimicrobia l susceptibili ty Commen t S = Susce ptibl e; I = Inter media te; R = Resis tant P = Posit kezia; N = Negat kezia MICS are expre ssed in micro grams per mL Antib iotic RSLT# 1 RSLT# 2 RSLT# 3 RSLT# 4 Amoxi cilli n/Cla vulan ic Acid S Ampic illin R Cefaz alba R Cefep lissy R Cefox itin S Cefpo doxim e R Ceftr iaxon e R Cipro floxa dena S Ertap enem S Genta micin S Levof loxac in S Merop enem S Nitro furan toin I Piper acill in/Ta zobac casiano S Tetra cycli ne R Tobra mycin S Trime thopr im/Connelly lfa R Not Available [facility] ([facility]) [address] [facility], [place], [address], 03/04/2025 17:19:57 02/29/20 25 02/28/2025 HbA1c (hemo globi n A1c), blood HbA1c 8.0 Not Available In-Office Order Internal Use Only DO Not Attach Compendium DO Not Attach Compendium, Do Not Delete/merge, [id number] 02/28/2025 16:15:51 04/13/20 25 04/15/2025 UA/M W/RFL X CULTU RE, ROUTI NE specific gravity - Test not perfo rmed. Mancini top urine tube is for urine cultu re and is not suita ble for urina lysis . Not Available [facility] ([facility]) [address] [facility], [place], [address], 04/15/2025 09:13:00 04/13/20 25 04/15/2025 UA/M W/RFL X CULTU RE, ROUTI NE pH - Test not perfo rmed Not Available [facility] ([facility]) [address] [place], [address], 04/15/2025 09:13:00 04/13/20 25 04/15/2025 UA/M W/RFL X CULTU RE, ROUTI NE protein - Test not perfo rmed Not Available [facility] ([facility]) [address] [place], [address], 04/15/2025 09:13:00 04/13/20 25 04/15/2025 UA/M W/RFL X CULTU RE, ROUTI NE glucose - Test not perfo rmed Not Available [facility] ([facility]) [address] [facility], [place], [address], 04/15/2025 09:13:00 04/13/2004/15/2025 UA/M W/RFL X CULTU RE, ROUTI NE ketones - Test not perfo rmed Not Available [facility] ([facility]) [address] [facility], [place], [address], 04/15/2025 09:13:00 04/13/20 25 04/15/2025 WRITT EN AUTHO RIZAT ION written authorizatio n Thomas t Froilan en Autho rizat ion Recei adebayo. Autho rizat ion recei adebayo from ORIGI NAL ORDER 04-15 Logge d by Oralia Reed Not Available [facility] ([facility]) [address] [facility], [place], [address], 04/21/2025 06:19:58 04/13/20 25 04/21/2025 URINE CULTU RE, ROUTI NE urine culture, routine FINAL REPORT abnormal Not Available [facility] ([facility]) [address] [place], [address], 04/21/2025 06:19:59 04/13/20 25 04/21/2025 URINE CULTU RE, ROUTI NE result 1 ESCHER ICHIA COLI abnormal 50,00 0-100 ,000 colon y formi ng units per mL Multi -Drug Resis tant Organ ism Cefaz alba with an CORY <=16 predi [...] Prote us mirab ilis. Not Available [facility] ([facility]) [address] [place], [address], 04/21/2025 06:19:59 04/13/20 25 04/21/2025 URINE CULTU RE, ROUTI NE antimicrobia l susceptibili ty COMMEN T S = Susce ptibl e; I = Inter media te; R = Resis tant P = Posit kezia; N = Negat kezia MICS are expre ssed in micro grams per mL Antib iotic RSLT# 1 RSLT# 2 RSLT# 3 RSLT# 4 Amoxi cilli n/Cla vulan ic Acid S Ampic illin R Cefaz alba S Cefep lissy S Cefox itin S Cefpo doxim e S Ceftr iaxon e S Cipro floxa dena R Ertap enem S Genta micin S Levof loxac in R Merop enem S Nitro furan toin S Piper acill in/Ta zobac casiano S Tetra cycli ne S Tobra mycin S Trime thopr im/Connelly lfa R Not Available [facility] ([facility]) [address], [place], [address], 04/21/2025 06:19:59 03/07/20 25 03/07/2025 MAMMO , sherrie daniel, isabela al, bilstacey bernal No observ ation record ed. [address], [place], [address], 03/11/2025 11:29:35 Result Notes None recorded. Problems Name Problem SNOMED Code Status Onset Date Resolution Date Notes Provider Name and Address Organization Details Recorded Time Type 2 diabetes mellitus 88179197 Active 2016 Not Available [facility] 4 07:23:42 Peripheral neuropathy due to type 2 diabetes mellitus 6867234656402 Active 2016 Not Available [facility] 4 07:23:42 Thyroid nodule 189410376 Active 2016 Not Available [facility] 4 07:23:42 Depressive disorder 38354360 Active 2016 Not Available [facility] 4 07:23:42 Obesity 521386816 Active 2016 Not Available [facility] 4 07:23:42 Insomnia 011415972 Active 2019 Not Available [facility] 4 07:23:42 Panic attack 951126333 Active 2019 Not Available [facility] 4 07:23:42 Notes:Some problems listed i n Documents: #[id number], #[id number], #[id number], #[id number], #[id number], #[id number], #[id number] could not be added to this patient's chart. Please review these documents and add these problems to the patient's chart manually as needed. Problem Notes None recorded. Procedures Surgical History Date Name Laterality Status Provider Name and Address Organization Details Recorded Time 01/02/20 24 Nail Debridement completed ELSY AVILES D[facility] [address], [address], [facility] 01/02/2024 17:09:58 09/08/20 23 Nail De[place]ement [place], [address], [facility] 09/08/2023 15:25:26 05/22/20 23 Nail Debridement [place], [address], [facility] 05/22/2023 17:33:36 04/19/20 19 colonoscopy completed Chato Hernandez MD Attn: Accounting,[address] [place], [address], [facility] 06/11/2019 16:01:55 10/20/19 16 Most Recent Mammogram completed Gabriel Villafana [facility] 09/04/2017 10:27:36 10/20/19 15 Date of Last Mammogram completed Cecile Reyes MA ID - [facility] 01/08/2023 09:32:29 10/20/19 15 Date of Last Pap Smear completed Gabriel Villafana [facility] 09/04/2017 10:25:23 10/20/18 79 Dilation and Curettage completed Chato Hernandez MD Attn: Accounting[address] [place], [address], [facility] 06/11/2019 16:01:19 Eye Surgery completed Hunter Will MA ID - [facility] 04/28/2017 10:58:31 Caesarean Section completed Hunter Will MA ID - [facility] 04/28/2017 10:58:38 section completed Chato Hernandez MD Attn: Accounting[address] [place], [address], [facility] 06/11/2019 16:04:24 Imaging Results None recorded. Procedure Notes None recorded. Medical Equipment None Reported. Allergies Allergen ID Allergen Name Allergen Category Reaction Reaction Severity Criticality Documentation Date Start Date Code Code System Note Provider Name and Address Organization Details Recorded Time [id number] Farxiga medicatio n other moderate Not available 06/09/2019 26415 72 RxNorm donn nual yeast infec tions Brenda Tirado RN null, [facility] 9 10:12:08 [id number] wheat gluten extract food other moderate Not available 06/11/2019 60537 81 RxNorm flatu lence Chato Hernandez MD Attn: Accountin g,[address] [facility], [place], [address], [facility] 9 16:03:12 [id number] ciproflox acin medicatio n abdominal pain diarrhea mild moderate low 04/21/20252024 2551 RxNorm Justino Hutchison LPN null, [facility] 5 11:29:36 Medications Name Sig Start Date Stop Date Status Note LastModified by Organization Details LastModified Time cyclobenz aprine 10 mg tablet TAKE ONE TABLET BY MOUTH EVERY 8 HOURS 04/02 completed Not Available Not Available Not Available amoxicill in 500 mg capsule 08/25 completed Not Available Not Available Not Available fluconazo le 100 mg tablet Take 1 tablet every day by oral route after meals for 30 days. 08/16 completed Not Available Not Available Not Available bupropion HCl SR 150 mg tablet,12 hr sustained -release 09/04 completed Not Available Not Available Not Available prednison e 10 mg tablet TAKE ONE TABLET BY MOUTH THREE TIMES DAILY FOR 3 DAYS THEN TWICE DAILY FOR 2 DAYS THEN EVERY DAY FOR ONE DAY 04/27 completed Not Available Not Available Not Available gabapenti n 600 mg tablet one tab o qid active Not Available Not Available No t Available clindamyc in HCl 300 mg capsule 06/12 completed Not Available Not Available Not Available ammonium lactate 12 % lotion Apply 1 applicat ion twice a day by topical route. 04/27 completed Not Available Not Available Not Available trazodone 50 mg tablet Take 1 tablet every day by oral route as needed for 30 days. 05/11 completed Not Available Not Available Not Available lisinopri l 20 mg-hydroc hlorothia zide 12.5 mg tablet 1 po bid active Not Available Not Available N ot Available azithromy dena 250 mg tablet TAKE 2 TABLETS BY MOUTH ON DAY 1, AND THEN TAKE 1 TABLET BY MOUTH ONCE A DAY ON DAY 2 THROUGH DAY 5 11/20 completed Not Available Not Available Not Available ibuprofen 800 mg tablet 08/25 completed Not Available Not Available Not Available tizanidin e 4 mg tablet TAKE ONE TABLET BY MOUTH EVERY 6 HOURS NEEDED FOR MUSCLE SPASMS 08/19 completed Not Available Not Available Not Available fluconazo le 150 mg tablet TAKE ONE TABLET BY MOUTH EVERY DAY FOR 2 DAYS 06/10 completed Not Available Not Available Not Available benzonata te 200 mg capsule TAKE ONE CAPSULE THREE TIMES DAILY 04/27 completed Not Available Not Available Not Available citalopra m 10 mg tablet Take 1 tablet every day by oral route as needed for 30 days. 10/26 completed Not Available Not Available Not Available hydrocodo ne 5 mg-acetam inophen 325 mg tablet 07/05 completed Not Available Not Available Not Available fluconazo le 200 mg tablet TAKE ONE TABLET BY MOUTH EVERY DAY FOR 15 DAYS 04/02 completed Not Available Not Available Not Available meloxicam 15 mg tablet TAKE 1 TABLET BY MOUTH DAILY WITH FOOD FOR PAIN active Not Available Not Available No t Available naltrexon e 50 mg tablet 09/04 completed Not Available Not Available Not Available lisinopri l 20 mg tablet TAKE ONE TABLET BY MOUTH TWICE DAILY EVERY MORNING & EVENING FOR BLOOD PRESSURE active Not Available Not Available No t Available ondansetr on HCl 4 mg tablet 06/10 completed Not Available Not Available Not Available prednison e 20 mg tablet TAKE THREE TABLETS BY MOUTH EVERY DAY FOR 3 DAYS 01/15 completed Not Available Not Available Not Available Tubersol 5 tub. unit/0.1 mL intraderm al injection solution Administ er .1ml interder lavonne 07/05 completed Patient due to return 05/13/20 19 to have PPD read. Not Available Not Available Not Available clonazepa m 0.5 mg tablet TAKE 1 TABLET BY MOUTH TWO TIMES DAILY active Not Available Not Available No t Available meclizine 12.5 mg tablet TAKE ONE TABLET BY MOUTH THREE TIMES DAILY NEEDED FOR NAUSEA 04/02 completed Not Available Not Available Not Available acetamino phen 300 mg-codein e 30 mg tablet 08/25 completed Not Available Not Available Not Available fexofenad ine 180 mg tablet TAKE ONE TABLET BY MOUTH EVERY DAY FOR ALLERGIE S 08/19 completed Not Available Not Available Not Available ciproflox acin 250 mg tablet TAKE ONE TABLET BY MOUTH TWICE DAILY 04/27 completed Not Available Not Available Not Available sulfameth oxazole 800 mg-trimet hoprim 160 mg tablet TAKE 1 TABLET BY MOUTH TWICE DAILY 01/15 completed Not Available Not Available Not Available tramadol 50 mg tablet TAKE ONE TABLET BY MOUTH EVERY 8 HOURS NEEDED 04/02 completed Not Available Not Available Not Available amitripty line 50 mg tablet 09/13 completed Not Available Not Available Not Available triamcino lone acetonide 0.1 % topical cream apply to affected area no more than two weeks in a row. Do not use on face or genital area 04/27 completed Not Available Not Available Not Available amoxicill in 500 mg tablet TAKE ONE TABLET BY MOUTH EVERY 8 HOURS UNTIL GONE FOR INFECTIO N 02/17 completed Not Available Not Available Not Available acyclovir 800 mg tablet Take 1 tablet every day by oral route as directed for 30 days. 09/13 completed Not Available Not Available Not Available glimepiri de 2 mg tablet Take 2 tablets twice a day by oral route. 07/30 completed Not Available Not Available Not Available ketorolac 10 mg tablet 10/26 completed Not Available Not Available Not Available meloxicam 7.5 mg tablet one tab po q d prn pain. Take with food 2024 active Not Available Not Available Not Avai lable terbinafi ne HCl 250 mg tablet TAKE ONE TABLET BY MOUTH EVERY DAY 04/27 completed Not Available Not Available Not Available propranol ol 10 mg tablet TAKE ONE TABLET BY MOUTH THREE TIMES A DAY, MORNING, MIDDAY AND BEDTIME NEEDED FOR ANXIETY active Not Available Not Available No t Available citalopra m 20 mg tablet TAKE 1 TABLET BY MOUTH EVERY NIGHT AT BEDTIME NEEDED 04/02 completed Not Available Not Available Not Available amitripty line 25 mg tablet TAKE ONE TABLET BY MOUTH EVERY NIGHT AT BEDTIME FOR ONE WEEK, THEN INCREASE TO TWO TABLETS EVERY NIGHT AT BEDTIME FOR THE NEXT WEEKIF STILL SYMPTOMA TIC, THEN THREE TABLETS EVERY NIGHT AT BEDTIME IF STILL SYMPTOMA TIC & CONTINUE THIS DOSE 02/28 completed Not Available Not Available Not Available prednisol one acetate 1 % eye drops,brad pension 06/12 completed Not Available Not Available Not Available IBU 600 mg tablet 08/25 completed Not Available Not Available Not Available gabapenti n 800 mg tablet TAKE ONE TABLET BY MOUTH FOUR TIMES DAILY FOR NERVE PAIN active Not Available Not Available No t Available OneTouch Ultra Test strips USE TO CHECK BLOOD SUGAR ONCE DAILY active Not Available Not Available No t Available amitripty line 10 mg tablet 06/11 completed Not Available Not Available Not Available meclizine 25 mg tablet TAKE ONE TABLET EVERY 8 HOURS NEEDED 04/27 completed Not Available Not Available Not Available benzonata te 100 mg capsule 04/02 completed Not Available Not Available Not Available cephalexi n 500 mg capsule Take 1 capsule every 6 hours by oral route as directed for 5 days. 09/13 completed Not Available Not Available Not Available nortripty line 10 mg capsule Take 1 capsule every day by oral route at bedtime for 30 days. 06/12 completed Not Available Not Available Not Available oseltamiv ir 75 mg capsule TAKE ONE CAPSULE BY MOUTH TWICE DAILY 04/27 completed Not Available Not Available Not Available metformin 1,000 mg tablet TAKE ONE TABLET BY MOUTH TWICE DAILY EVERY MORNING & EVENING WITH FOOD FOR DIABETES active Not Available Not Available No t Available Cipro 500 mg tablet one tab po bid 04/21 completed Labs E.coli, resistan t to Quinolon es, not likely to be an ESBL.Sto p Ciproflo xacin.St art the oral Cephalos porin. Not Available Not Available Not Available nitrofura ntoin macrocrys wen 100 mg capsule TAKE ONE CAPSULE BY MOUTH TWICE DAILY EVERY MORNING & BEDTIME FOR INFECTIO N 11/04 completed Not Available Not Available Not Available nystatin 100,000 unit/gram topical cream 08/25 completed Not Available Not Available Not Available glimepiri de 4 mg tablet TAKE ONE TABLET BY MOUTH TWICE DAILY FOR DIABETES 04/27 completed Not Available Not Available Not Available lidocaine 5 % topical patch APPLY ONE PATCH TO THE SKIN ON THE MOST PAINFUL AREA FOR UP TO 12 HOURS 06/10 completed Not Available Not Available Not Available gabapenti n 300 mg capsule Take 2 capsules 3 times a day by oral route. 05/01 completed Not Available Not Available Not Available lisinopri l 20 mg-hydroc hlorothia zide 25 mg tablet TAKE 1 TABLET BY MOUTH ONCE A DAY FOR BLOOD PRESSURE AND FLUID RETENTIO N 08/16 completed Not Available Not Available Not Available monteluka st 10 mg tablet TAKE ONE TABLET BY MOUTH EVERY DAY FOR BREATHIN G active Not Available Not Available No t Available hydroxyzi ne HCl 25 mg tablet Take 1 tablet every day by oral route as needed for 30 days. 06/12 completed Not Available Not Available Not Available alcohol swabs USE TO CLEAN THE INJECTIO N SITE OF INSULIN AND WHEN CHECKING BLOOD SUGAR active Not Available Not Available No t Available hydrochlo rothiazid e 25 mg tablet TAKE ONE TABLET BY MOUTH EVERY MORNING FOR BLOOD PRESSURE AND FLUID RETENTIO N active Not Available Not Available No t Available mupirocin 2 % topical ointment apply a SMALL AMOUNT TO AFFECTED AREAS THREE TIMES DAILY FOR 7 DAYS 06/10 completed Not Available Not Available Not Available furosemid e 20 mg tablet TAKE ONE TABLET BY MOUTH EVERY DAY NEEDED FOR FLUID RETENTIO N 08/19 completed Not Available Not Available Not Available polyethyl chen glycol 3350 17 gram/dose oral powder dissolve contents of one capful in EIGHT ounces of liquid ONCE daily BEFORE breakfas t FOR 10 DAYS 04/27 completed Not Available Not Available Not Available levofloxa dena 500 mg tablet TAKE ONE TABLET DAILY FOR 7 DAYS WITH A MEAL AND A PROBIOTI C 12/28 completed Not Available Not Available Not Available pioglitaz one 30 mg tablet TAKE ONE TABLET BY MOUTH EVERY DAY FOR DIABETES 04/15 completed Not Available Not Available Not Available lisinopri l 40 mg tablet TAKE 1/2 TABLET BY MOUTH TWICE DAILY 06/10 completed Not Available Not Available Not Available ondansetr on 4 mg disintegr ating tablet DISSOLVE 1 TABLET IN MOUTH 4 TIMES DAILY NEEDED 04/27 completed Not Available Not Available Not Available cefdinir 300 mg capsule TAKE ONE CAPSULE BY MOUTH EVERY TWELVE HOURS FOR 7 DAYS. STOP THE CIPROFLO XACIN active Not Available Not Available No t Available fluoxetin e 20 mg capsule Take 1 capsule every day by oral route in the morning for 30 days. 04/07 completed Not Available Not Available Not Available fluticaso ne propionat e 50 mcg/actua tion nasal spray,brad pension USE ONE SPRAY IN EACH NOSTRIL TWICE DAILY EVERY MORNING & EVENING FOR ALLERGIE S 2024 active Not Available Not Available Not Avai lable Enulose 10 gram/15 mL oral solution take 15ml BY MOUTH DAILY NEEDED 04/02 completed Not Available Not Available Not Available naproxen 500 mg tablet 01/13 completed Not Available Not Available Not Available metoclopr amide 10 mg tablet Take 1 tablet(s ) twice a day by oral route as directed for 30 days. 05/11 completed Not Available Not Available Not Available amoxicill in 875 mg-potass ium clavulana te 125 mg tablet TAKE ONE TABLET TWICE DAILY UNTIL ALL TAKEN 12/28 completed Not Available Not Available Not Available amoxicill in 500 mg-potass ium clavulana te 125 mg tablet TAKE ONE TABLET BY MOUTH EVERY TWELVE HOURS WITH A LARGE GLASS OF WATER FOR INFECTIO N 02/28 completed Not Available Not Available Not Available Ventolin HFA 90 mcg/actua tion aerosol inhaler 01/13 completed Not Available Not Available Not Available neomycin- polymyxin -hydrocor t 3.5 mg-10,000 unit/mL-1 % ear drops,brad p 04/27 completed Not Available Not Available Not Available cyclobenz aprine 5 mg tablet TAKE ONE TABLET BY MOUTH EVERY 8 HOURS 04/02 completed Not Available Not Available Not Available nitrofura ntoin monohydra te/macroc rystals 100 mg capsule TAKE ONE CAPSULE BY MOUTH TWICE DAILY FOR INFECTIO N 07/28 completed Not Available Not Available Not Available Januvia 50 mg tablet Take 1 tablet every day by oral route as directed for 30 days. 06/12 completed Not Available Not Available Not Available Januvia 100 mg tablet TAKE ONE TABLET BY MOUTH EVERY DAY FOR DIABETES 08/19 completed Not Available Not Available Not Available calcium 600 mg (as carbonate )-vitamin D3 10 mcg (400 unit) tablet Take 1 tablet twice a day by oral route as directed for 30 days. 06/12 completed Not Available Not Available Not Available Lantus Solostar U-100 Insulin 100 unit/mL (3 mL) subcutane ous pen INJECT 40 UNITS TWICE A DAY BY SUBCUTAN EOUS ROUTE 08/16 completed Not Available Not Available Not Available Adacel (Tdap Adolesn/A dult)(PF) 2 Lf-(2.5-5 -3-5)-5 Lf/0.5 mL IM syringe 08/16 completed Not Available Not Available Not Available Tussin 100 mg/5 mL oral liquid Take 10 mL every 4 hours by oral route as needed for 5 days. 06/12 completed Not Available Not Available Not Available Xifaxan 550 mg tablet 09/13 completed Not Available Not Available Not Available Farxiga 5 mg tablet Take 1 tablet every day by oral route as directed for 30 days. 06/11 completed Not Available Not Available Not Available Levemir FlexTouch U-100 Insulin 100 unit/mL (3 mL) subcutane ous pen 01/09 completed Not Available Not Available Not Available Contrave 8 mg-90 mg tablet,ex tended release Take 2 tablets twice a day by oral route as directed for 30 days. 07/30 completed Not Available Not Available Not Available Trulicity 1.5 mg/0.5 mL subcutane ous pen injector INJECT 1.5mg UNDER THE SKIN EVERY WEEK if tolerati ng .75mg DOSE WELL active Not Available Not Available No t Available Trulicity 0.75 mg/0.5 mL subcutane ous pen injector INJECT 0.75ml UNDER THE SKIN EVERY WEEK active Not Available Not Available No t Available TRUEplus Pen Needle 31 gauge x 5/16 USE DIRECTED 06/12 completed Not Available Not Available Not Available TRUEplus Pen Needle 31 gauge x 3/16 USE DIRECTED 08/16 completed Not Available Not Available Not Available Fluarix Quad (PF) 60 mcg (15 mcg x 4)/0.5 mL IM syringe 10/01 completed Not Available Not Available Not Available Shingrix (PF) 50 mcg/0.5 mL intramusc ular suspensio n, kit 07/05 completed Not Available Not Available Not Available Ozempic 1 mg/dose (2 mg/1.5 mL) subcutane ous pen injector 1 mg subcu once a week 05/23 completed Not Available Not Available Not Available Ozempic 0.25 mg or 0.5 mg (2 mg/1.5 mL) subcutane ous pen injector Inject 0.25 mg every week by subcutan eous route as directed for 90 days. 02/12 completed Not Available Not Available Not Available baclofen 5 mg tablet TAKE ONE TABLET BY MOUTH EVERY NIGHT AT BEDTIME FOR MUSCLE SPASMS (DO NOT TAKE AT THE SAME TIME GABAPENT IN) active Not Available Not Available No t Available Flulaval Quad 60 mcg (15 mcg x 4)/0.5 mL IM suspensio n 08/25 completed Not Available Not Available Not Available OneTouch Ultra2 Meter USE TO CHECK BLOOD SUGAR active Not Available Not Available No t Available OneTouch Delica Plus Lancet 33 gauge USE TO CHECK BLOOD SUGAR ONCE DAILY active Not Available Not Available No t Available OneTouch Delica Plus Lancet 30 gauge USE TO CHECK BLOOD SUGAR ONCE daily active Not Available Not Available No t Available Flublok Quad (PF) 180 mcg (45 mcg x 4)/0.5 mL IM syringe 09/13 completed Not Available Not Available Not Available Rybelsus 3 mg tablet Take by oral route for 28 days. 04/02 completed Not Available Not Available Not Available Fluzone Quad (PF) 60 mcg (15 mcg x 4)/0.5 mL IM syringe 10/04 completed Not Available Not Available Not Available Ozempic 1 mg/dose (4 mg/3 mL) subcutane ous pen injector INJECT 1mg UNDER THE SKIN EVERY WEEK 11/04 completed Not Available Not Available Not Available Ozempic 2 mg/dose (8 mg/3 mL) subcutane ous pen injector INJECT 2MG UNDER THE SKIN EVERY WEEK active Not Available Not Available No t Available Ozempic 0.25 mg or 0.5 mg (2 mg/3 mL) subcutane ous pen injector INJECT 0.25 UNDER THE SKIN EVERY WEEK FOR ONE MONTH, THEN increase TO 0.5mg EVERY WEEK 05/23 completed Not Available Not Available Not Available Vitals Date Recorded Body height Body mass index (BMI) Body weight Oxygen saturation Oxygen saturation in Arterial blood by Pulse oximetry Heart rate Systolic And Diastolic Provider Name and Address Organization Details Last Updated DateTime 5 163.2 cm 38.8 kg/m2 920236. 06 g 98 % 98 % 88 /min 120/70 mm[Hg] Cecile Reyes MA [facility] 5 11:28:32 Date Recorded Body height Body mass index (BMI) Body weight Oxygen saturation Oxygen saturation in Arterial blood by Pulse oximetry Heart rate Body temperature Systolic And Diastolic Provider Name and Address Organization Details Last Updated DateTime 5 163.2 cm 39.9 kg/m2 308386. 61 g 98 % 98 % 93 /min 98.1 [degF] 122/70 mm[Hg] Cecile Reyes MA [facility] 5 15:51:17 Date Recorded Body height Body mass index (BMI) Body weight Oxygen saturation Oxygen saturation in Arterial blood by Pulse oximetry Heart rate Systolic And Diastolic Provider Name and Address Organization Details Last Updated DateTime 5 163.2 cm 39.9 kg/m2 581430. 61 g 98 % 98 % 93 /min 128/66 mm[Hg] Dolores Donald MA [facility] 5 14:21:34 Date Recorded Body height Body mass index (BMI) Body weight Oxygen saturation Oxygen saturation in Arterial blood by Pulse oximetry Heart rate Systolic And Diastolic Provider Name and Address Organization Details Last Updated DateTime 4 163.2 cm 39.5 kg/m2 465387. 43 g 100 % 100 % 90 /min 120/70 mm[Hg] Cecile Reyes MA [facility] 4 14:30:52 Date Recorded Body height Body mass index (BMI) Body weight Oxygen saturation Oxygen saturation in Arterial blood by Pulse oximetry Heart rate Systolic And Diastolic Provider Name and Address Organization Details Last Updated DateTime 4 163.2 cm 38.8 kg/m2 408435. 06 g 100 % 100 % 95 /min 118/70 mm[Hg] Cecile Reyes MA [facility] 4 14:36:36 Social History Question Answer Notes LastModified by Organizat ion Details LastModified Time Tobacco Smoking Status Former Smoker Nelly Adams MA null, ID - [facility] 11/18/2022 15:58:32 Do You Have An Advance Directive? No Information n ot available 09/04/2017 What Is Your Level Of Caffeine Consumption? Moderate Information not available 09/04/2017 How Much Tobacco Do You Chew? None Information not available 09/04/2017 In The 14 Days Before Symptom Onset, Have You Had Close Contact With A Laboratory-confirm ed COVID-19 While That Case Was Ill? No Information n ot available 02/26/2022 In The 14 Days Before Symptom Onset, Have You Had Close Contact With A Person Who Is Under Investigation For COVID-19 While That Person Was Ill? No Information not available 02/26/2022 Have You Been To An Area Known To Be High Risk For COVID-19? No Information not available 02/26/2022 What Type Of Diet Are You Following? REGULAR Information n ot available 09/04/2017 Which Illicit Or Recreational Drugs Have You Used? Denies Information not available 09/04/2017 Education 2 Year College Information not available 09/04/2017 Are There Any Guns Present In Your Home? No Information not available 09/04/2017 Hard Of Hearing Or Deaf In One Or Both Ears? No Information not available 09/04/2017 Legally Blind In One Or Both Eyes? No Information no t available 09/04/2017 Marital Status Informatio n not available 09/04/2017 What Was The Date Of Your Most Recent Tobacco Screening? 04/13/2025 Information not available 04/13/2025 Performs Monthly Self-breast Exam? Yes Information no t available 09/04/2017 Seat Belts Used Routinely Yes Information not available 09/04/2017 Smoke Alarm In Home Yes Information not available 09/04/2017 How Much Tobacco Do You Smoke? No [email or web address] Information not available 11/18/2022 General Stress Level High Information not available 09/04/2017 Do You Use Sunscreen Routinely? Yes Information not available 09/04/2017 Has Tobacco Cessation Counseling Been Provided? Yes [email or web address] Information not available 02/18/2024 On What Date Was Tobacco Cessation Counseling Provided? 04/13/2025 Information not available 04/13/2025 How Many Years Have You Smoked Tobacco? 20 Information not available 04/28/2017 Sex: Unknown Functional Status Question Answer Note LastModified by Organizat ion Details LastModified Time Do you or have you ever used any other forms of tobacco or nicotine? No [email or web address] Information not available 08/16/2021 What is your level of alcohol consumption? Occasional Beer - Weekends Information not available 04/28/2017 Do you or have you ever used smokeless tobacco? Never used smokeless tobacco 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 [facility] used [facility] cigarettes [facility] Information not available 06/11/2019 What is your exercise level? Moderate Information not available 09/04/2017 Mental Status None recorded. Family History Relationship Description Onset Age of this Age Resolved Age Notes LastModified by Organization Details LastModified Time Brother Harmful pattern of use of alcohol Not available 04/28 10:59:03 Brother Asthma Not availabl e 04/28/2017 10:59:16 Father Harmful pattern of use of alcohol Not available 04/28 10:59:03 Father Dementia Not availab le 04/28/2017 11:00:48 Father Diabetes mellitus Not available 04/28 11:01:09 Father Heart disease Not available 04/28 11:01:28 Father Hypertensive disorder Not available 04/28 11:01:46 Father Hypercholest erolemia Not available 04/28 11:02:09 Father Myocardial infarction Not available 04/19 11:02:36 Sister Asthma Not available 04/28/2017 10:59:16 Sister Coronary arterioscler osis Not available 04/28 11:00:34 Sister Dementia Not availab le 04/28/2017 11:00:48 Sister Diabetes mellitus Not available 04/28 11:01:09 Sister Heart disease Not available 04/28 11:01:28 Sister Hypertensive disorder Not available 04/28 11:01:46 Sister Hypercholest erolemia Not available 04/28 11:02:09 Sister Kidney disease Not available 04/28 11:02:21 Mother Suspected breast cancer Not available 04/28 10:59:40 Mother Diabetes mellitus Not available 04/28 11:01:09 Mother Hypercholest erolemia Not available 04/28 11:02:09 Mother Malignant tumor of colon 50 52 [email or web address] Not available 09/04 10:34:46 Son Malignant tumor of colon 26 [email or web address] Not available 09/04 10:34:46 Notes:colon cancer (Mother) ovarian cancer (Mother) Medical History Condition Response Coronary Artery Disease N Other N High Blood Pressure N Atrial Fibrillation N Kidney or Bladder Problems N Thyroid Problems Y GI Problems Y Depression Y COPD N Blood Clots Y Skin Problems Y Anemia N Heart Attack (NM) N Anxiety Disorder Y Diabetes Y Muscle, Joint, or Bone Problems N Seizures/Epilepsy N Acid Reflux (GERD) N Cancer N Stroke N Asthma N Allergies Y High Cholesterol N Hepatitis N Liver Disease N Heart Failure N Osteoporosis N Gynecological History Statement/Question Response Abnormal Pap N Date of Last Mammogram 10/20/2014 STIs/STDs N HPV Vaccine N Most Recent Mammogram 10/20/2015 Age at Menarche 9 Current Control Method Menopause Age at First Child 21 If Post Menopausal, Age at Menopause 53 Sexually Active? Y Date of Last Pap Smear 10/20/2014 Sexual Problems? N LMP Approximate Obstetrics History GPAL:G 4 P 2 0 2 2 Type Value Multiple Births 0 Full Term 2 Induced 0 Spontaneous 2 Premature 0 Living 2 Ectopics 0 Total 4 Immunizations Vaccine Type Date Status Note Provider Nam e and Address Organization Details Recorded Time Influenza, split virus, quadrivalent, preservative 9 completed Not Available [facility] 11/28/2023 07:23:44 Tdap 0 completed Not Available [facility] 11/28/2023 07:23:44 COVID-19, mRNA, LNP-S, PF, 30 mcg/0.3 mL dose 1 completed Not Available [facility] 11/28/2023 07:23:44 COVID-19, mRNA, LNP-S, PF, 30 mcg/0.3 mL dose 1 completed Not Available [facility] 11/28/2023 07:23:44 COVID-19, mRNA, LNP-S, PF, 30 mcg/0.3 mL dose 1 completed Not Available [facility] 11/28/2023 07:23:44 influenza, unspecified formulation 2 completed Not Available [facility] 11/28/2023 07:23:44 pneumococcal, unspecified formulation 2 completed Not Available [facility] 11/28/2023 07:23:44 Influenza, high-dose, trivalent, PF 3 completed Not Available [facility] 04/13/2025 14:08:42 Influenza, high-dose, trivalent, PF 5 completed Not Available [facility] 04/13/2025 14:08:42 Hep A, adult 6 completed Not Available [facility] 04/13/2025 14:08:42 Influenza, split virus, quadrivalent, preservative 6 completed Not Available [facility] 04/13/2025 14:08:42 zoster recombinant 9 completed Not Available [facility] 04/13/2025 14:08:42 zoster recombinant 9 completed Not Available [facility] 04/13/2025 14:08:42 Influenza, split virus, quadrivalent, PF 0 completed Not Available [facility] 04/13/2025 14:08:42 Influenza, split virus, quadrivalent, PF 1 completed Not Available [facility] 04/13/2025 14:08:42 COVID-19, mRNA, LNP-S, bivalent, PF, 30 mcg/0.3 mL dose 2 completed Not Available [facility] 04/13/2025 14:08:42 Pneumococcal conjugate PCV20, polysaccharide [id number] conjugate, adjuvant, PF 2 completed Not Available [facility] 04/13/2025 14:08:42 Vaccinia, smallpox Mpox vaccine live, PF, SQ or ID injection 3 completed Not Available [facility] 04/13/2025 14:08:42 COVID-19, mRNA, LNP-S, PF, 50 mcg/0.5 mL 3 completed Not Available [facility] 04/13/2025 14:08:42 RSV, recombinant, protein subunit RSVpreF, adjuvant reconstituted, 0.5 mL, PF 3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 Agreed for PT and orthopedic referral. [id number] MD Paulo Stone (Adult Med) [address] [place] [phone] 0 01/08/2023 09:13:31 01/16/2023 13:38:58 Thyroid nodule 543268731 E04.1 1.) Will get records from MRI of neck. 2.) Check TSH 3.) Will proceed with some type of thyroid imaging based on TSH result Screening for malignant neoplasm of cervix 621465989 Z12.4 1.) Await PAP results. 2.) If unable to get PAP may have to consider estrogen cream or some treatment prior to repeat PAP for patient comfort. Screening for malignant neoplasm of breast 190693506 Z12.39 Family his tory of cancer of colon 209828495 Z80.0 Review records to see when screening was done. Our records indicate she had a colonoscop y in 2019. Needs repeat colonoscop y after 05/19/24. Postmenopausal state 764 14891 Z78.0 Discuss symptoms and possible treatment further at follow up visit. May be contributi ng to urinary incontinen ce issues. Urinary incontinence 165 806450 R32 Symptoms more consistent with overflow incontinen ce. Will discuss referral to urologist at follow up appointmen t. [id number] Chtao Hernandez MD [facility] (Adult Med) [address] [place] [phone] 0 01/15/2023 11:19:39 01/16/2023 14:30:55 Morbid obesity 916926715 E66.01 Diabetic diet, exercise and lose weight. As 01-15-23. BMI is 47.5. Cervical arthritis 19163 1000 M46.92 On med. Bilateral arthritis of hip 4787824300 760950 M13.851 M13.852 Under the care of her orthopedic DR. Yocasta Pina. got steroid joint injection. Allergic rhinitis 257611 04 J30.9 Allergy bother s her nose, prefers pill than nasal spray. Type 2 yunior betes mellitus 40257068 E11.21 Diabetic diet, exercise, HgA1C 9.8% 04-30-2017 , will add januvia. HgA1c 6.4%, postprandi al blood sugar is 188 mg% today 04-30-2018 . She all refilled recently. Discussed with patient will stop januvia and try farxiga if on the formulary and can be affordable . Discussed with patient, metformin made her having dry eyes. SHE HAS ENOUGH REFILLS OF MEDICATION S. 04-07-2020 . Will change from lantus to basaglar. 05-15-2020 .As 06-05-2022 , she said that her blood sugar went down to around 70 mg% at home. discussed with her, will cut down metformin to half dose, glimepirid e to half dose, and D/C januvia for the mean time. monitor the home blood sugar.Urin alysis is normal, possible yeast infection , she agreed to try anti-funga l treatment, she agreed. Dizzy spells 446457320 R 42 Probably from her allergy. Statin declined 18541957 0 Z53.20 Declined today 01-15-23. [id number] MD Paulo Stone (Adult Med) [address] [place] [phone] 0 02/12/2023 15:42:58 02/14/2023 09:46:20 Type 2 diabetes mellitus 40643718 E11.9 1.) elevated BMI 2.) Fasting CMP and Hgb A1C. 3) Was going to try Trulicity since that was one in the class of GLP-1 Receptor Agonists that she might have been able to get that could help with weight loss. Canceled order for Trulicity due to thyroid nodule and concern about side effect of thyroid tumor. Decided to wait until thyroid work up is done to decide how we will proceed with further management of diabetes. May help to get endocrinol ogist involved. Constipation 18117683 K5 9.00 Likely aggravated by poorly controlled diabetes and lack of activity and movement due to chronic pain. 1.) Can use Lactulose short term. 2.) Repeat colonoscop y recommende d April. 3.) Discuss further at follow up. Thyroid nodule 697285280 E04.1 Has not heard from Endocrinol ogist for appointmen t. Will follow up on this. [id number] MD Paulo Stone (Adult Med) [address] [place] [phone] 0 03/06/2023 11:20:24 03/19/2023 12:19:36 Type 2 diabetes mellitus 30933530 E11.9 On multiple oral medication s and diabetes is still not controlled . Does not want to be on insulin. Will refer to diabetic specialist . Bariatric procedure could be helpful as well. Follow up in one month to see if has referral appointmen ts. Body mass index 40+ - severely obese 904280367 Z68.42 Urinary incontinence 165 138955 R32 Thyroid nodule 061942155 E04.1 Will call to set up appointmen t with Endocrinol ogist for possible biopsy. She called while I was in the room and as they were working on the referral they disconnect ed her. She planned on calling back. Stressed the importance of setting up the referral since it is checking for thyroid cancer. Cervical d isc disorder 555487761 M50.90 Waiting on surgery at this time. Weight loss will be helpful. [id number] MD Paulo Stone (Adult Med) [address] [place] [phone] 0 04/02/2023 12:03:43 04/09/2023 10:41:37 Edema of lower extremity 095295282 R60.0 bilateral pitting edema with some shortness of breath. Family history of valve disease. No pulmonary edema appreciate d on exam. Will proceed with echo. Seek immediate medical attention if symptoms worse. Follow up in two weeks. Will have her stop Pioglitazo ne due to relationsh ip to heart failure. Infection of skin 322101 000 L08.9 Superficia l skin infection. Treat with topical antibiotic . Seek medical attention if worse. Thyroid nodule 067180259 E04.1 Has appointmen t for FNA in July. Will try to schedule somewhere else sooner. Body mass index 40+ - severely obese 767707544 Z68.43 Meeting with provider network mgr. Encouraged lifestyle changes. Would like to discuss medication further. Explained my concern about medication interactio ns with her multiple medication s. Will discuss further at follow up visit. Type 2 yunior betes mellitus 93214773 E11.9 Discuss further at follow up. Probably need to repeat Hgb A1C to see if there is any improvemen t. Cannot use GLP-1 agonists due to thyroid issues. Discussed insulin which she feels she will gain weight from. Maximum dose of Glimepirid e and Metformin. Will have patient stop Pioglitazo ne due to concern about fluid retention and heart failure and start Januvia. [id number] MD Paulo Stone (Adult Med) [address] [place] [address] 04/15/2023 10:11:04 04/21/2023 16:15:23 Type 2 diabetes mellitus 74747583 E11.9 personnel supervisor Januvia. Referral for Opthalmolo gist. Thyroid nodule 622605172 E04.1 Needs FNA Body mass index 40+ - severely obese 461972761 Z68.42 Will benefit from Weight Watchers program. Edema 728887979 R60.9 Improved. Has echo scheduled. [id number] MD Paulo Stone (Adult Med) [address] [place] [address] 05/07/2023 10:16:43 05/08/2023 15:23:19 Onychomycosis 182227832 B35.1 Essential hypertension 86837044 I10 Increase Lisinopril to 20 mg BID. Will send out script. Type 2 yunior betes mellitus 70624320 E11.9 Continue Januvia and Metformin. Will return for fasting Hgb A1C and Lipids. Continue to check fasting blood sugars and bring in readings. Follow up in one month. Body mass index 40+ - severely obese 593356960 Z68.42 Weight decreased. Working on better diet and increasing activity. Would like to join Weight Watchers. Unintentio nal weight loss 004743976 R63.4 Body fluid retention 434 49989 R60.9 Has had a twenty seven pound weight loss in less than a month and edema has resolved since stopping Piglitazon e. This may be due to fluid retention from the medication , but there was no evidence of heart failure on the echo. Possible mild pulmonary hypertensi on although technicall y difficult study. Repeat echo in one year. [id number] ELSY AVILES DPM [facility] [address] [place] [address] 05/22/2023 14:01:12 05/23/2023 08:36:11 Diabetic peripheral neuropathy 393977938 E11.42 Patient was educated about the systemic risks of diabetes and importance of proper glucose control, dangers of neuropathy and loss of gift of pain and risk stratifica tion and exam frequency. Patient was educated on high pressure areas including risks and offloading solutions. Reviewed with patient proper foot care instructio ns and daily self-exami nation and monitoring of the feet. Onychomycosis 656955699 B35.1 The patient was educated why and how the fungal infection evolved in their feet and the patient was given informatio n regarding how to prevent further infection. The patient was told to keep feet dry and change socks. The patient was told to be careful with old shoes and excessive sweating. The patient was educated regarding both OTC and prescripti on treatments . Tinea pedis 3721253 B35. 3 The patient was educated why and how the fungal infection evolved in their feet and the patient was given informatio n regarding how to prevent further infection. The patient was told to keep feet dry and change socks. The patient was told to be careful with old shoes and excessive sweating. The patient was educated regarding both OTC and prescripti on treatments . Pain in left foot 168595 3984 73091 M79.672 Pain in right foot 41435 62638 85514 M79.671 Bilateral atherosclerosis of arteries of lower limbs 7091256439 7358572 I70.271 [id number] MD Paulo Stone (Adult Med) [address] [place] [phone] 06/10/2023 10:03:29 06/17/2023 12:06:27 Essential hypertension 57619975 I10 Taking Lisinopril BID. Blood pressure improved but not yet at goal. Continue to work on diet and exercise. Recheck in two months. Will send out refills. Type 2 yunior betes mellitus 49434391 E11.9 Continue Januvia, Glimepirid e, and Metformin. Will follow up in two months to check fasting glucose and Hemoglobin A1C, Will adjust medication accordingl y. Will continue to aggressive ly work on diet. Has seen Manager Of Software Development and Opthalmolo gist. Discussed statin therapy. Patient agreeable to starting. Will start medication after completes antifungal to avoid added stress to liver. Thyroid nodule 053421231 E04.1 Needs FNA. Scheduled for appointmen t in July. Onychomycosis 928268278 B35.1 Followed by Manager Of Software Development . Obesity 478019375 E66.9 [id number] [facility] [address] [address] 06/24/2023 09:17:58 06/26/2023 14:33:58 Diabetic peripheral neuropathy 762430394 E11.42 Patient was educated about the systemic risks of diabetes and importance of proper glucose control, dangers of neuropathy and loss of gift of pain and risk stratifica tion and exam frequency. Patient was educated on high pressure areas including risks and offloading solutions. Reviewed with patient proper foot care instructio ns and daily self-exami nation and monitoring of the feet. Onychomycosis 795434040 B35.1 The patient was educated why and how the fungal infection evolved in their feet and the patient was given informatio n regarding how to prevent further infection. The patient was told to keep feet dry and change socks. The patient was told to be careful with old shoes and excessive sweating. The patient was educated regarding both OTC and prescripti on treatments . Tinea pedis 8745228 B35. 3 The patient was educated why and how the fungal infection evolved in their feet and the patient was given informatio n regarding how to prevent further infection. The patient was told to keep feet dry and change socks. The patient was told to be careful with old shoes and excessive sweating. The patient was educated regarding both OTC and prescripti on treatments . Pain in left foot 180305 6318 90248 M79.672 Pain in right foot 06141 09777 21249 M79.671 Bilateral atherosclerosis of arteries of lower limbs 7889222769 2129080 I70.137 [id number] MD Paulo Stone (Adult Med) [address] [place] [phone] 07/28/2023 15:43:18 07/29/2023 12:08:16 Administration of influenza vaccine 32281321 Z23 [id number] MD Paulo Stone (Adult Med) [address] [place] [phone] 0 08/19/2023 10:07:43 08/20/2023 11:57:41 Type 2 diabetes mellitus 75858049 E11.9 Following with Endocrinol ogist. Started on Ozempic and has two weeks of .5 mg but when runs out insurance will only cover Trulicity. Will start Trulicity .75 mg when out of Ozempic. Follow up in [facility] seven weeks. Has seen Manager Of Software Development and Opthalmolo gist. Discussed statin therapy. Patient agreeable to starting. Will start medication after completes antifungal . Continue Glimepirid e and Metformin. Does not need refills today. Pain of ri ght shoulder joint 9194474114 5500177 M25.511 Make appointmen t with orthopod for possible injection. Thyroid nodule 282473617 E04.1 Endocrinol ogist is monitoring . Onychomycosis 666836943 B35.1 Followed by Manager Of Software Development . Taking antifungal medication . Diabetic p eripheral neuropathy 613469988 E11.40 Taking gabapentin for symptoms. Refill so she has enough until follow up in September. Essential hypertension 47075999 I10 Blood pressure controlled . Continue Lisinopril BID. Refill so she has enough until follow up in September. [id number] ELSY AVILES DPM [facility] [address] [address] 09/08/2023 14:41:14 09/09/2023 11:31:13 Diabetic peripheral neuropathy 414645869 E11.42 Patient was educated about the systemic risks of diabetes and importance of proper glucose control, dangers of neuropathy and loss of gift of pain and risk stratifica tion and exam frequency. Patient was educated on high pressure areas including risks and offloading solutions. Reviewed with patient proper foot care instructio ns and daily self-exami nation and monitoring of the feet. Onychomycosis 275662031 B35.1 The patient was educated why and how the fungal infection evolved in their feet and the patient was given informatio n regarding how to prevent further infection. The patient was told to keep feet dry and change socks. The patient was told to be careful with old shoes and excessive sweating. The patient was educated regarding both OTC and prescripti on treatments . Tinea pedis 2853209 B35. 3 The patient was educated why and how the fungal infection evolved in their feet and the patient was given informatio n regarding how to prevent further infection. The patient was told to keep feet dry and change socks. The patient was told to be careful with old shoes and excessive sweating. The patient was educated regarding both OTC and prescripti on treatments . Pain in left foot 924724 0850 21510 M79.672 Pain in right foot 69103 08197 37490 M79.671 Bilateral atherosclerosis of arteries of lower limbs 3819546756 6458695 I70.980 [id number] MD Paulo Stone (Adult Med) [address] [place] [phone] 0 10/28/2023 15:28:57 10/29/2023 16:28:53 Type 2 diabetes mellitus 26979854 E11.9 Missed Endocrinol ogist visit so needs to make another appointmen t. Has lost four pounds since previous visit. Hemoglobin A1C unchanged since April. Will increase Trulicity dose. Follow up in two months. Will check Chem panel and urine for protein today. Taking Terbinifin e from Manager Of Software Development . Once that is completed will start statin. Refill Glimepirid e. It appears she recently had Metformin and glimepirid e filled by Dr. Hernandez. Will research why refills are going to him. Pain of ri ght shoulder joint 4487517739 7277088 M25.511 Make appointmen t with orthopod for possible injection. Unable to take anti-infla mmatories due to borderline kidney function. Tylenol has not helped. Has taken Tizanidine but had hang over effect. Will try Baclofen at night. Advised her to avoid taking it with Gabapentin . Highly advised patient against using marijuana for pain management . Thyroid nodule 676332258 E04.1 Endocrinol ogist is monitoring . Onychomycosis 539506575 B35.1 Followed by Manager Of Software Development . Taking antifungal medication . Vertigo 996026966 R42 Symptoms consistent with vertigo. Patient has serous otitis on exam. Will start back on her allergy medication . If symptoms do not resolve in one week will let me know. Advised patient to stay well hydrated. Essential hypertension 13040539 I10 Blood pressure controlled . Continue Lisinopril BID. Will refill medication . Diabetic p eripheral neuropathy 835675278 E11.40 Taking gabapentin for symptoms. Medication recently refilled by Dr. Hernandez who is no longer her primary care provider. Will research why refill request keeps going to him. Renewal of prescription 660059546 Z76.0 [id number] MD Paulo Stone (Adult Med) [address] [place] [phone] 12/29/2023 15:10:14 12/30/2023 10:05:20 Laboratory test result abnormal 166321415 R89.9 Abnormal electrolyt es in ER. Will recheck today. Acute dermatitis 7222073 6 L30.9 From patient history sounds like a contact dermatitis . Will try treating with topical steroid cream. Advised patient to avoid medication on face or genital area. Also advised her to avoid using more than two weeks in a row. Acute urin cris tract infection 835875636 N39.0 Partial response to antibiotic . Only treated her for seven days. Given her co morbities I think she should have a longer antibiotic course. She also has some possible CVA tenderness , which it sounds like may have been worse at the time of her ER visit. I am going to get the ER records and see if a culture was done. I am going to try to get sensitivit ies to see if this antibiotic is effective. If not, I will change antibiotic s. I am considerin g a fourteen day course to cover for possible pyelonephr itis. Will have patient return for follow up UA after treatment. Type 2 yunior betes mellitus 10453230 E11.9 Follows with endocrinol ogist. I will review meds with her at follow up. [id number] ELSY AVILES DPM [facility] [address] [place] [address] 01/02/2024 15:54:51 01/06/2024 10:11:12 Diabetic peripheral neuropathy 579835283 E11.42 Patient was educated about the systemic risks of diabetes and importance of proper glucose control, dangers of neuropathy and loss of gift of pain and risk stratifica tion and exam frequency. Patient was educated on high pressure areas including risks and offloading solutions. Reviewed with patient proper foot care instructio ns and daily self-exami nation and monitoring of the feet. Onychomycosis 163733248 B35.1 The patient was educated why and how the fungal infection evolved in their feet and the patient was given informatio n regarding how to prevent further infection. The patient was told to keep feet dry and change socks. The patient was told to be careful with old shoes and excessive sweating. The patient was educated regarding both OTC and prescripti on treatments . Tinea pedis 7446742 B35. 3 The patient was educated why and how the fungal infection evolved in their feet and the patient was given informatio n regarding how to prevent further infection. The patient was told to keep feet dry and change socks. The patient was told to be careful with old shoes and excessive sweating. The patient was educated regarding both OTC and prescripti on treatments . Pain in left foot 126307 5709 93962 M79.672 Pain in right foot 82590 10355 60956 M79.671 Bilateral atherosclerosis of arteries of lower limbs 2871129854 4849894 I70.203 Xerosis du e to atopic dermatitis 417629747 L85.3 The patient was educated regarding proper hydration of their feet/ankle s and the patient was given several recommenda tions for proper creams to protect/hy drate and keep the area healthy. [id number] Dorina Garduno MD [facility] (Adult Med) [address] [place] [address] 02/11/2024 13:34:44 02/12/2024 15:18:01 Exposure to Influenzavirus 670648432 Z20.828 Influenza caused by Influenza B virus 03562255 J10.1 Treat with Tamiflu. Isolate until fever free. [id number] [facility] [address] [place] [phone] 0 02/18/2024 14:05:38 04/20/2024 14:11:57 Obesity 167708860 E66.9 Type 2 yunior betes mellitus 84893960 E11.9 Increase Ozempic to 1 mg daily. Stop Glimepirid e. Continue morning acu checks and do acu check if does not feel good. If acu checks less than or close than 70 let me know so I can adjust medication . Follow up in two months. Make sure she is staying well hydrated. Seasonal a llergic rhinitis 479720380 J30.2 Claritin has stopped helping allergy symptoms. Will try Singulair. Influenza caused by Influenza B virus 49783674 J10.1 Symptoms resolving. Essential hypertension 46090155 I10 Blood pressure controlled . Having some episodes of light headedness with positional changes. Blood pressure running a little on the low side since weight loss. Decrease Lotensin to one a day. Follow up in two months to repeat blood pressure. Body mass index 40+ - severely obese [id number] Z68.42 Great work! Recommende d she add some weight lifting to exercises. Continue healthy eating and regular exercise. [id number] MD Paulo Stone (Adult Med) [address] [place] [address] 04/27/2024 14:17:28 04/28/2024 16:28:41 Body mass index 40+ - severely obese [id number] Z68.42 Has lost eight pounds. Asked about increasing Ozempic because at times she still gets very hungry, but I do not want to do that right now because we are concerned about a possible side effect of increase in urinary tract infections . Asked her to work on finding other ways to deal with stress in life besides eating. Also asked her to work on a regular exercise routine. Acute urin cris tract infection [id number] N39.0 Has had recurrent UTIs since on Ozempic. Is completing ten day treatment with Nitrofuran toin which the culture said this bacteria is sensitive to. She will come in for a follow up culture after treatment to confirm that the infection has been treated. If we confirm the infection has been completely treated and she gets another infection, we discussed switching from Ozempic to a different GLP-1, since I would have to start to think the GLP-1 may be causing these infections . I also did advise her to make sure she is drinking six to eight glasses of water a day since this could be contributi ng to her risk of infection. Swelling o f right foot [id number] M79.89 Has had swelling of right foot, and had tenderness over metatarsal s on exam. Will proceed with xray. Type 2 yunior betes mellitus [id number] E11.9 Doing well with Ozempic. Will check a Hemoglobin A1C at follow up in three months. Will also check urine for protein. Advised patient to make ophthalmol ogy appointmen t. Screening for malignant neoplasm of breast 163105565 Z12.39 Due for screening mammogram in February. Will put the order in. [id number] MD Paulo Stone (Adult Med) [address] [place] [address] 07/28/2024 14:26:27 07/30/2024 15:57:56 Type 2 diabetes mellitus 00298277 E11.9 Due for a Hemoglobin A1C. Will increase Ozempic. She said she saw an ophthalmol ogist this year but I am not sure we have the record. I will have to check on that. Body mass index 30+ - obesity 582201011 Z68.38 Will increase Ozempic but stressed the importance of lifestyle change and management of diet on her own because we are now reaching the maximum dose of this medication . Hand pain 10323926 M79.6 43 Pain of both MCP joints, left greater than right. Will x-ray them. She may have trigger finger, particular ly in left thumb. She takes Ibuprofen every morning for her pains because she feels she has arthritis. I stressed the concerns of GI irritation and cardiotoxi city with regular NSAID use. She does understand that. I explained that that is the reason to know why she is hurting and try to treat it with other means besides regular use of medication if possible. I did tell her that Tylenol would be better. Laboratory test result abnormal [id number] R89.9 Pain in right foot 49195 91772 33964 M79.671 Will get xray done. [id number] Dorina Garduno MD [facility] (Adult Med) [address] [place] [address] 11/04/2024 11:13:47 11/09/2024 16:15:09 Type 2 diabetes mellitus 05273450 E11.9 Will give her three more months with the Ozempic because it was the holidays and her Hemoglobin A1C is not over seven. Stressed the importance of lifestyle changes. Will follow up in three months and repeat a Hemoglobin A1C and check weight. If Ozempic does not seem to be helping will consider lisa sosa. Patient would like to try Trulicity. Is following with ophthalmol ogist. Screening for malignant neoplasm of colon [id number] Z12.11 Due for colonoscop y. Screening for malignant neoplasm of breast 692921786 Z12.39 Due for screening mammogram in February. Will put the order in. Screening for osteoporosis 038503368 Z13.820 Acute sinusitis 79781475 J01.90 Had partial improvemen t with Zithromax, but completed that over a week ago and continues with significan t sinus pressure and drainage. Will treat with Augmentin and Flonase. Cautioned on diarrhea with Augmentin. Advised her to keep the medication twelve hours apart and take each dose with a large glass of water. Diabetic p eripheral neuropathy 052532920 E11.40 Gabapentin is not controllin g neuropathy at night. Will try amitriptyl ine at night. Advised her to avoid Gabapentin and Baclofen with this medication at night. Follow up in three months. Essential hypertension 76700969 I10 Blood pressure controlled . Having some episodes of light headedness with positional changes. Blood pressure running a little on the low side since weight loss. Decrease Lotensin to one a day. Follow up in two months to repeat blood pressure. [id number] MD Paulo Stone (Adult Med) [address] [place] [address] 02/28/2025 15:33:38 03/02/2025 13:32:13 Type 2 diabetes mellitus 36712273 E11.9 Stop Ozempic since is really not seeing a response to that. Will start Trulicity and increase as tolerated. Follow up in three months. History of urinary tract infection [id number] 107 Z87.440 Will repeat UA. Pain of bi lateral hands [id number] 0530991 M79.641 M79.642 Will get x-rays of both hands. Generalize d anxiety disorder 20986994 F41.1 Asked for medication she can take acutely for anxiety. I will start her on Propranolo l 10 mg to take one as needed prior to an event that provokes anxiety. We can adjust the dose as needed. Hyperlipid emia screening 364067890 Z13.220 Has not had a lipid panel since 2022 and not on a statin. Will return for fasting lipids. [id number] MD Paulo Stone (Adult Med) [address] [place] [phone] 04/13/2025 14:05:46 04/14/2025 14:33:58 Urinary tract infectious disease 44610627 N39.0 Dysuria with mild left CVA tenderness . UA with positive leukocytes . Has been having frequent UTIs. Will treat with Cipro which her last urine culture was sensitive to. Will treat for two weeks. Will also have her come in after treatment for a follow up urine to make sure infection is completely treated. Sending the urine for culture to make sure this is an effective antibiotic . Consider further work up for frequent and complicate d UTIs. Will review history. Health Concerns Section Related Observation LastModified by Organization Detai ls LastModified Time None Recorded Concern Status LastModified by Organization Details LastModified Time None Recorded Advance Directives Directive N: Payers Insurance Date Sequence Insurance Name Policy Number Policy Harmon Covered Member ID Harmon Member ID Guarantor Name 10/28/2023 1 [facility] ON OR AFTER 04/19/21 (MEDICAID REPLACEMENT - HMO) Brianne Skyles [id number] Brianne Skyles 11/18/2022 1 [place] [facility] OF PUBLIC AID Brianne Skyles [id number] Brianne Skyles 11/18/2022 1 [place] [id number] Brianne Skyles [id number] Brianne Skyles 11/18/2022 1 [place] [id number] Brianne Skyles [id number] Brianne Skyles 07/28/2024 2 [place] WHEN MEDICARE [place] MEDICARE REPLACEMENT PRIMARY) Brianne Skyles [id number] Brianne Skyles 04/13/2025 1 [facility] (MEDICARE REPLACEMENT/A DVANTAGE - HMO) [id number] Brianne M Skyles [id number] Brianne Skyles 11/18/2022 1 [facility] PRIOR TO 04/19/2021 (MEDICAID REPLACEMENT - HMO) Brianne Skyles [id number] Brianne Skyles 11/18/2022 2 [place] [facility] [place] OF PUBLIC [facility] Brianne Skyles [id number] Brianne Skyles 11/18/2022 1 [place] [facility] [place] OF PUBLIC AID Brianne Skyles [id number] Brianne Skyles 11/18/2022 1 [facility] PRIOR TO 04/19/2021 (MEDICAID REPLACEMENT - HMO) Brianne Skyles [id number] Brianne Skyles Notes Date Note Type Note Provider Name and Address Organization Details Recorded Time 04/27/2024 text/html here for follow up, was switched to Ozempic by fiction and nonfiction prose writer, fiction and nonfiction prose writer also started HCTZ, is always bad about drinking water, has had swelling in right foot for some time, no obvious pain or injury, due for eye doctor appointment, a couple more days of antibiotic for UTI, symptoms are much better, feels better, no back pain Dorina Farroll, MD Attn: Accounting,[address] [place], [address], [facility] 04/27/2024 15:14:32 07/28/2024 text/html follow up, does not have to wear pads anymore since lost weight, rough month and a half, emotional eater, has had a bunch of birthday parties, would like to increase Ozempic dose because feels is not loosing weight as easily, no stomach pain or nausea, additional foster kids, did not get xray of right foot from last visit, fell last week, was coming off the deck and fell, landed on knees, right foot was swollen, would like Meloxicam for arthritis, thumbs hurt and neck hurt, Dorina Garduno MD Attn: Accounting, [address] [facility], [place], [address], [facility] 07/28/2024 18:37:08 11/04/2024 text/html follow up, feels like Ozempic is not working, she is finding herself getting hungrier, ate more over the holidays, also did not get x-ray on foot, could not go to the local hospital and had a hard time getting out to get it done, pain not as bad, following up with eye doctor, went to urgent care over the holidays and was treated for a sinus infection, finished Zithromax a week and a half ago, symptoms are maybe fifty percent better but continues with sinus pressure and congestion, takes Gabapentin three times a day, takes one in the morning, one at noon and one in the evening, feet pain is worse, wakes her at night, the gabapentin is not helping through the night Dorina Garduno MD Attn: Accounting, [address] [place], [address], [facility] 11/04/2024 13:32:30 02/28/2025 text/html a lot of stress going on, amitriptyline helped pain but made her eat more, has taken Trulicity before, no pancreatitis or thyroid cancer in patient or family, Ozempic is not working, skin thin, has been taking aspirin for pain, no urinary symptoms, no dysuria, right thumb hurting, left thumb and arm hurting after injury, fell about three weeks ago and popped it back in place, does not hurt as bad, needs something for nerves, not depressed or suicidal, saw eye doctor a few months ago, colonoscopy and mammogram coming up, Dorina Garduno MD Attn: Accounting,[address] [facility], [place], [address], [place] [facility] 02/28/2025 16:40:44 04/13/2025 text/html Here for possibl e urinary tract infection, experiencin dysuria, fatigue, nocturia, glucose has been high around 250, Dorina Garduno MD Attn: Accounting,[address] [facility], [place], [address], [facility] 04/13/2025 19:29:37 OBGyn Episode Ob Episode Information Episode Created Date Number of Fetuses Patient Bloodtype Patient rh Status Prepregnancy Weight lbs Domestic Partner Domestic Partner Phone Father Name Nurse Rn Bsn Status 09/04/20 17 1 CLOSED Fetus Data First Name Last Name Admitted to NICU Weight (g) Sex Living Outcome Pediatric Complications Fetus ID Race Codes Race Delivery Type 3855.53 2 M Full Term [id number] Bill Calculation Initial Bill Date Initial Exam Date Initial Exam Provider Initial Ultrasound Date Last Menstrual Period Date Ultra Sound Weeks Gestation 0 Eighteen To Twenty Week Bill Update Ultra Sound Date Fundal Height At Umbil Quickening Date Ultra Sound Latest Weeks Gestation Final Bill Confirmed By Final Bill Confirmed Date Final Bill Date Ultra Sound Latest Days Gestation 0 0 Menstrual History Last Menstrual Date Menses Monthly On Bcp Conception Prior Menses Frequency Hcg Plus Date Menarche Onset Age Delivery Information Delivery Date Delivery Type Labor Anesthesia Weeks Gestation Incision Type Labor Labor Length Hrs Delivered By Post Complications Tubal Sterilization Discharge Date Comments 0 Regional-Sp inal 42 Discharge Information Feeding Method Contraceptive Method Maternal HG B and HCT Levels Ob Episode Information Episode Created Date Number of Fetuses Patient Bloodtype Patient rh Status Prepregnancy Weight lbs Domestic Partner Domestic Partner Phone Father Name Nurse Rn Bsn Status 09/04/20 17 1 CLOSED Fetus Data First Name Last Name Admitted to NICU Weight (g) Sex Living Outcome Pediatric Complications Fetus ID Race Codes Race Delivery Type 3826.95 [id number] F Full Term [id number] Bill Calculation Initial Bill Date Initial Exam Date Initial Exam Provider Initial Ultrasound Date Last Menstrual Period Date Ultra Sound Weeks Gestation 0 Eighteen To Twenty Week Bill Update Ultra Sound Date Fundal Height At Umbil Quickening Date Ultra Sound Latest Weeks Gestation Final Bill Confirmed By Final Bill Confirmed Date Final Bill Date Ultra Sound Latest Days Gestation 0 0 Menstrual History Last Menstrual Date Menses Monthly On Bcp Conception Prior Menses Frequency Hcg Plus Date Menarche Onset Age Delivery Information Delivery Date Delivery Type Labor Anesthesia Weeks Gestation Incision Type Labor Labor Length Hrs Delivered By Post Complications Tubal Sterilization Discharge Date Comments 2 Regional-Sp inal 40 Discharge Information Feeding Method Contraceptive Method Maternal HG B and HCT Levels
--- OUTSIDE RECORDS SUMMARY | 2025-04-26 17:54 | XMS_ITS | Data Portability ---
Author Organization [facility] [place] [employer], Main Office Address [address] [place] [address] Care Team Providers Care Database Tester Name Role Phone RUSTAM ANNA Primary Care Provider KATHYARRON ANNA Referring Provider [phone] Assessment Encounter Date Assessment Date Assessment LastModified [...] contact patient to schedule 2023 024 [email or web address] [facility], [address] [place], [address], 4 15:32:09 Procedures injection/a spiration joint/bursa (PROC) 2023 024 [email or web address] In-Office Order, Internal Use Only DO Not Attach Compendium DO Not Attach Compendium, Do Not Delete/merge, [id number] 4 10:14:57 Surgeries None recorded. Imaging XR, shoulder 2023 024 [email or web address] [facility], [address] [facility], [place], [address], 4 10:54:50 Medication Orders bupivacaine HCl 0.5 % (5 mg/mL) injection solution 2023 024 [place] [address] [facility], [address] [place] [address], [id number], 4 10:54:50 Kenalog 10 mg/mL suspension for injection 2023 024 [address] [facility], [address] [place] [address], [id number], 4 10:54:50 prednisone 10 mg tablets in a dose pack 2023 024 [address] [facility], [address] [place] [address], [id number], 4 10:54:50 Patient TargetsNo targets recorded. Patient [...] bilat eral No observ ation record ed. [id number] [facility] [address], [place], [address], 12/18/2022 15:45:32 11/04/19 24 XR, shoul gloria No observ ation record ed. [email or web address] [facility] [address] [facility], [place], [address], 11/04/2023 10:53:02 Result Notes None recorded. Problems Name Problem SNOMED Code Status Onset Date Resolution Date Notes Provider Name and Address Organization Details Recorded Time Pain in left sacroiliac joint 6947912408948 9102 Active 2022 Not Available [facility] 3 15:43:19 Pain in right sacroiliac joint 0443807699665 9107 Active 2022 Not Available [facility] 3 15:43:19 Pain of bilateral hip joints 4530150518085 9100 Active 2022 Not Available [facility] 3 15:43:20 Cellulitis 999564576 Active Not Available [facility] 3 15:43:20 Folliculit is 50986551 Active Not Available [facility] 3 15:43:20 Pain of right shoulder joint 1241503988237 9100 Active 2020 Not Available [facility] 3 15:43:20 Morbid obesity 801296358 Active 2022 Not Available [facility] 3 15:43:20 Edema 379448474 Active Not Available [facility] 3 15:43:20 Infection of toe 786418914 Active Not Available [facility] 3 15:43:20 Hypertrigl yceridemia 858333907 Active Not Available [facility] 3 15:43:20 Trochanter ic bursitis of left hip 9904433852950 03 Active 2022 Not Available [facility] 3 15:43:20 Trochanter ic bursitis of right hip 2471454061613 00 Active 02/07/ 2023 Not Available [facility] 3 15:43:21 Depressive disorder 87454996 Active Not Available [facility] 3 15:43:21 Sinusitis 28160764 Active Not Available [facility] 3 15:43:21 Neuropathy 782503153 Active Not Available [facility] 3 15:43:21 Onychomyco sis of toenails 537182797 Active Not Available [facility] 3 15:43:21 Obesity 548869816 Active Not Available [facility] 3 15:43:21 Furuncle 591809436 Active Not Available [facility] 3 15:43:21 Pain of shoulder region 90290312 Active Not Available [facility] 3 15:43:21 Anxiety 51583722 Active Not Available [facility] 3 15:43:22 Upper respirator y infection 05075486 Active Not Available [facility] 3 15:43:22 Essential hypertensi on 23173292 Active Not Available [facility] 3 15:43:22 Urinary tract infectious disease 11007181 Active Not Available [facility] 3 15:43:22 Diabetes mellitus 48822892 Active Not Available [facility] 3 15:43:22 Conjunctiv itis 3901209 Active Not Available [facility] 3 15:43:22 Tendinitis of right rotator cuff 1476361424622 9104 Active 2023 JOEL Reyna [address], [place], [address] , [employer] [facility] [employer] 4 10:53:47 Impingemen t syndrome of right shoulder region 4306544400627 02 Active 2023 JOEL Reyna [address], [place], [address] , [employer] [facility] [employer] 4 10:53:54 Osteoarthr itis of right acromiocla vicular joint 9257863269133 104 Active 2023 JOEL Reyna [address], [place], [address] , [place] [facility] 4 10:54:04 Problem Notes None recorded. Procedures Surgical History Date Name Laterality Status Provider Name and Address Organization Details Recorded Time delivery completed Not Available [facility] 12/18/2022 15:41:15 Adenoid Surgery completed Not Available [facility] 12/18/2022 15:41:15 Imaging Results None recorded. Procedure Notes None recorded. Medical Equipment None Reported. Allergies Allergen ID Allergen Name Allergen Category Reaction Reaction Severity Criticality Documentation Date Start Date Code Code System Note Provider Name and Address Organization Details Recorded Time 16552 trazodone medicatio n Not available Not available Not available 12/18/2022 96411 RxNorm Not Available [facility] 3 15:45:27 00574 tramadol medicatio n nausea Not available Not available 12/18/2022 42441 RxNorm Not Available [facility] 3 15:45:27 67823 Product containin g penicilli n (product) medicatio n other Not available Not available 12/18/2022 94810 8001 SNOMED Yeast Infec tion Not Available [facility] 3 15:45:27 Medications Name Sig [...] mg by injectio n route. 2023 active [facility]: [id number] 4-20 Not Available Not Available Not [...] administ ered by the provider 11/26 completed [facility]: [id number] 04-05 Not Available Not Available Not [...] n administ ered by the provider active [facility] [id number] 01-18 Not Available Not Available Not Available [...] No t Available Vitals Date Recorded Body height Body mass index (BMI) Body weight Provider Name and Address Organization Details Last Updated DateTime 11/04/2023 163.83 cm 41.9 kg/m2 702070.91 g MILAGROS Cisneros [place] [employer] [facility] 11/04/2023 10:11:27 Date Recorded Body mass index (BMI) Body height Body weight Provider Name and Address Organization Details Last Updated DateTime 11/26/2022 61.5 kg/m2 138.43 cm 467503.02 g Not Available [facility] 12/18/2022 15:43:04 Date Recorded Body mass index (BMI) Body height Oxygen saturation Oxygen saturation in Arterial blood by Pulse oximetry Heart rate Body temperature Body weight Systolic And Diastolic Provider Name and Address Organization Details Last Updated DateTime 1 48.1 kg/m2 162.56 cm 97 % 97 % 98 /min 97.6 [degF] 949995. 86 g 118/76 mm[Hg] Not Available [facility] 15:42:59 Date Recorded Body mass index (BMI) Body height Oxygen saturation Oxygen saturation in Arterial blood by Pulse oximetry Heart rate Respiratory rate Body temperature Body weight Systolic And Diastolic Provider Name and Address Organization Details Last Updated DateTime 1 48.1 kg/m2 162.56 cm 97 % 97 % 98 /min 14 /min 97.6 [degF] 024331. 86 g 118/76 mm[Hg] Not Available [facility] 3 15:42:59 Social History Question Answer Notes LastModified by [employer] Details LastModified Time Tobacco Smoking Status Never Smoker Not Available [facility] 12/18/2022 15:41:13 In The 14 Days Before Symptom Onset, Have You Had Close Contact With A Laboratory-confirm ed COVID-19 While That Case Was Ill? No [id number] Information not available 12/18/2022 In The 14 Days Before Symptom Onset, Have You Had Close Contact With A Person Who Is Under Investigation For COVID-19 While That Person Was Ill? No [id number] Information not available 12/18/2022 What Was The Date Of Your Most Recent Tobacco Screening? 12/19/2020 [id number] Information not available 12/18/2022 Sex: Unknown Functional Status Question Answer Note LastModified by Organizat ion Details LastModified Time What is your level of alcohol consumption? 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 Family History Relationship Description Onset Age of this Age Resolved Age Notes LastModified by Organization Details LastModified Time Unspecified Relation Diabetes mellitus [id number] Not available 12/18/2022 15:41:16 Mother Family history of malignant neoplasm [id number] Not available 12/18/2022 15:41:16 Medical History Condition Response ARTHRITIS Y DIABETES, TYPE Y BLOOD CLOTS Y USE OF NSAIDS Y HYPERTENSION Y Metal allergy Y Gynecological HistoryNo gynecological history recorded. Obstetrics History GPAL:G 0 P 0 0 0 0 Immunizations Vaccine Type Date Status Note Provider Nam e and Address Organization Details Recorded Time Influenza, high-dose, trivalent, PF 3 completed Not Available [facility] 12/18/2022 15:45:24 Pneumococcal conjugate PCV 13 5 completed Not Available [facility] 12/18/2022 15:45:24 Influenza, high-dose, trivalent, PF 5 completed Not Available [facility] 12/18/2022 15:45:25 Influenza, split virus, quadrivalent, preservative 6 completed Not Available [facility] 12/18/2022 15:45:25 Past Encounters Encounter ID Performer Location Encounter Start Date Encounter Closed Date Diagnosis/Indication Diagnosis SNOMED-CT Code Diagnosis ICD10 Code Diagnosis Note [id number] Gaudencio Pina MD [facility] [address] [place] [address] 12/19/2020 00:00:00 12/19/2020 09:33:14 [id number] MD [facility] [address] [address] 02/27/2021 00:00:00 02/27/2021 16:00:35 [id number] MD [facility] [address] [facility] [address] 04/03/2021 00:00:00 04/05/2021 13:45:08 [id number] Gaudencio Pina MD [facility] [address] [address] 11/26/2022 00:00:00 11/26/2022 10:58:32 [id number] Blas Sandhu MD [facility] [address] [address] 11/04/2023 10:05:51 11/04/2023 10:38:28 Pain of right shoulder joint 4167646510 9125163 M25.511 Tendinitis of right rotator cuff 3649896441 5925719 M67.813 Impingemen t syndrome of right shoulder region 2023085939 90704 M75.41 Osteoarthr itis of right acromioclavicular joint 3415733294 812060 M19.011 Health Concerns Section Related Observation LastModified by Organization Detai ls LastModified Time None Recorded Concern Status LastModified by Organization Details LastModified Time None Recorded Advance Directives Directive None Recorded Payers Insurance Date Sequence Insurance Name Policy Number Policy Harmon Covered Member ID Harmon Member ID Guarantor Name 05/10/2024 2 [place] [employer] Brianne Bear [id number] Briannesa Bear 05/10/2024 1 [facility] (MEDICARE REPLACEMENT/AD VANTAGE - PPO) [id number] Brianne Bear [id number] Brianne Bear 10/29/2023 1 [facility] ON OR AFTER 04/19/21 (MEDICAID REPLACEMENT - HMO) Brianne Bear [id number] Brianne Bear 05/10/2024 2 [place]CON[place] WHEN MEDICARE OR MEDICARE REPLACEMENT PRIMARY) Brianne Bear [id number] Brianne Bear Notes Date Note Type Note [...] in bowel/bladder habits;weakness;swell ing;warmth;popping/cl icking Not Available [facility] 12/19/2020 09:33:14 11/26/2022 text/html Back PainReporte d bypatient.Location:pa in radiating to the buttocks Quality:dull Severity:worsening Duration:chronic Context:unusual activity; prior back problems Associated Symptoms:no fever; no weak limbs; no numbness of the legs/feet; no tingling; no incontinence; no shortness of breathHip(s)Reported bypatient.Location:wi teril Quality:throbbing; superficial; frequent Severity:moderate Duration:continuous since onset Timing:occasional Context:overuse Alleviating Factors:lying down; heat; ice; rest; exercise; limited weight bearing Aggravating Factors:standing; walking; bending/squatting Associated Symptoms:no numbness; no redness; no ecchymosis; no catching/locking; no popping/clicking; no buckling; no grinding; no instability; no radiation down leg; no drainage; no fever; no chills; no weight loss; no change in bowel/bladder habits;weakness;swell ing Not Available [facility] 11/26/2022 10:58:32 11/04/2023 text/html Patient returns with [...] shoulder pain as described. JOEL Reyna [address] [facility] [facility] [address], [place], [address], [place] [facility] [employer] [facility] 11/04/2023 16:44:14 OBGyn Episode No OBEpisode recorded.
[2025-04-26 18:27] VITALS: BP 148/79; PULSE 81; RESP 18; TEMP 36.4; O2SAT 100
--- OUTSIDE RECORDS SUMMARY | 2025-04-26 20:48 | XMS_ITS | Clinical Summary ---
Author Organization [facility] Address [address] [place] [address] Care Team Providers Care Shank Piece Tacker Name Role Phone Chato Hernandez MD Primary Care Provider [phone] Allergies No known active allergies Medications acyclovir [...] patient's age to complete this topic Insurance [facility] Care Teams Shank Piece Tacker Relationship Specialty Start Date End Date Chato Hernandez MD [address] [place] [address] PCP - General INTERNAL MEDICINE 05/19/19
--- OUTSIDE RECORDS SUMMARY | 2025-04-26 20:48 | XMS_ITS | Continuity of Care Document ---
Author Organization [facility] Address [address] [place] [address] [place] [address] Phone Care Team Providers Care Jailor Name Role Phone Francisco Brody DO Unavailable Unavailable Advance Directives Directive Yes / No Effective Date File Name No Information Encounters Encounter Description Practice Location Reason(s) For Visit Diagnoses Date Provider Providers Copied on Encounter [facility], [address], [place], [place], [id number], [place] tel:[phone] [facility] No Information Ronn Alexandra. [address] [facility], [place], [address], [place]. tel: [phone] Family History Family Member Type Diagnosis Age At Onset No Information Payers Payer name Insurance type Covered republican ID Authoriza tieugene(s) [employer] CI [id number] Social History Type Description Quantity Date Captured [...]
--- OUTSIDE RECORDS SUMMARY | 2025-04-26 20:48 | XMS_ITS | Clinical Summary ---
Author Organization [facility] Address [address] [place] [address] Care Team Providers Care Activity Assistant Name Role Phone Chato Hernandez MD Primary Care Provider [phone] Source Comments [facility] [employer],non-owned Affiliates and Associated Physician Practices is amultiple site organization consisting of ambulatory clinics and hospital sitesin [place], [place], [place] and [place]. This disclosure is being madepursuant to the Care Everywhere program and may not contain all information available regarding this patient. Last updated 18.[facility] [employer] Allergies No known active allergies Medications * [...] Not Established ug/mL 08/04/2023 10:58 AM CDT [facility] Creatinine Urine 60.60 Not Established mg/dL 08/04/2023 10:58 AM CDT [facility] Urine Albumin/Creati nine Ratio 15 <30 mg/g 08/04/2023 10:58 AM CDT [facility] Urine URINE SPECIMEN OBTAINED BY CLEAN CATCH PROCEDURE / Unknown Collection / Unknown 08/04/2023 9:49 AM CDT 08/04/2023 10:17 AM CDT Robbi Haskins MD LAB - URINE CHEMISTRY ORDERAB LES Final Result Performing Organization Address City/State/[facility] Co de Phone Number [facility] [address] [place] [address], [facility] [phone] * (ABNORMAL) HEMOGLOBIN A1C (08/04/2023 9:42 AM CDT) Hemoglobin A1c 9.7(H) <=5.6 % 08/06/2023 11:28 AM CDT [facility] Estimated Average Glucose 232 mg/dL 08/06/2023 11:28 AM T [facility] Comment: HbA1c Interpretation: Normal : < 5.7% Pre-diabetes: 5.7-6.4% Diabetes: Equal to or greater than 6.5% Test results diagnostic of diabetes should be repeated for confirmation. Treatment target values recommended by ADA and other clinical organizations should be used to evaluate metabolic control in patients. Reference: [place] Diabetes Association, Standards of Care in Diabetes [...] LAB - CHEMISTRY ORDERABLES Fi nal Result [facility] [address] [place] [address], [facility] [phone] * (ABNORMAL) COMPREHENSIVE METABOLIC PANEL (08/04/2023 9:42 AM CDT) BUN 13 7 - 26 mg/dL 08/04/2023 10:52 AM [facility] Creatinine 0.92 0.56 - 0.96 mg/dL 08/04/2023 10:52 AM [facility] Sodium 137 136 - 145 mmol/L 08/04/2023 10:52 AM [facility] Potassium 4.5 3.5 - 4.5 mmol/L 08/04/2023 10:52 AM [facility] Chloride 102 98 - 107 mmol/L 08/04/2023 10:52 AM [facility] CO2 25 22 - 29 mmol/L 08/04/2023 10:52 AM [facility] Glucose 216(H) 70 - 115 mg/dL 08/04/2023 10:52 AM [facility] Calcium 9.7 8.4 - 10.2 mg/dL 08/04/2023 10:52 AM [facility] Protein Total 7.4 6.0 - 8.3 g/dL 08/04/2023 10:52 AM [facility] Albumin 3.9 3.4 - 5.0 g/dL 08/04/2023 10:52 AM [facility] Bilirubin Total 0.4 0.2 - 1.2 mg/dL 08/04/2023 10:52 AM [facility] Alkaline Phosphatase 86 40 - 150 U/L 08/04/2023 10:52 AM [facility] ALT 30 5 - 55 U/L 08/04/2023 10:52 AM [facility] AST 24 5 - 34 U/L 08/04/2023 10:52 AM CDT [facility] Anion Gap 10 6 - 16 08/04/2023 10:52 AM [facility] BUN/Creatinine Ratio 14 7 - 23 08/04/2023 10:52 AM T [facility] Osmolality Calculated 291 275 - 295 mOsm/kg 08/04/2023 10:52 AM [facility] Albumin/Globulin Ratio 1.1 1.1 - 2.3 08/04/2023 10:52 AM [facility] eGFR by CKD-EPI 70(L) >=90 mL/min/1.7 3 m2 08/04/2023 10:52 AM [facility] Blood BLOOD SPECIMEN / Unknown Lab Venipuncture / Unknown 08/04/2023 9:42 AM CDT 08/04/2023 10:20 AM CDT Robbi Haskins MD LAB - CHEMISTRY ORDERABLES nal Result [facility] [address] [place] [address], [facility] [phone] * EYE EXAM (05/07/2023) Anatomical Region Laterality Modality Other Historical Provider SCANNING ONLY Final Res ult from Last 3 Months or Most Recently Relevant to Health Maintenance Insurance MEDICARE [place]ICAID - [place] Care Teams Activity Assistant Relationship Specialty [place] [address] [place] [id number] PCP - General Internal Medicine 08/04/23
[2025-04-26] MEDS: KETOROLAC 30 MG/ML VIAL (*BKC) IM (22:21)
[2025-04-26] MEDS: traMADol HCL (*CRX) 50 MG TABLET PO (22:22)
--- NOTE | 2025-04-26 22:26 | ED.LOWEXIN ---
HPI - Extremity Injury (Lower) General Chief Complaint: Extremity Injury, Lower Stated Complaint: R knee pain Time Seen by Provider: 04/26/25 20:36 Source: patient Mode of arrival: ambulatory Limitations: no limitations History of Present Illness HPI Narrative: Patient is a 64-year-old female who presents the ED with report of right knee pain. Patient reports she has been having pain throughout her right knee for the past 2 weeks. She feels as though she strained her right knee will carrying something heavy. She has been wearing a knee brace at home, taking Tylenol, and states pain was improving this week. She then was walking down her stairs tonight after work and stepped down onto her right knee and felt a pop and twist in her right knee. Has been able to ambulate, but has pain with this. Pain worse with flexion/extension of her right knee. She also reports feeling a bulge in her right popliteal region. Denies numbness. Denies any actual fall or injury. Related Data Allergies Allergy/AdvReac Type Severity Reaction Status Date / Time No Known Allergies Allergy Verified 04/26/25 18:31 Review of Systems Review of Systems: All systems reviewed & are unremarkable except as noted in HPI. All systems reviewed & are unremarkable except as noted in HPI and below PMFSH Family History Family History Other Asthma Carcinoma of colon Cerebrovascular accident Depression Diabetes mellitus Family history of anemia Family history of cardiovascular disease Family history of chronic obstructive pulmonary disease Family history of liver disease Family history of lung disease Family history of malignant neoplasm of uterus Family history of mental disorder Family history of obesity Hypertension Social History Social History Smoking status: Never smoker Alcohol intake: never Exam Narrative: GENERAL: Well appearing, morbidly obese with BMI of 40.4, non-toxic, in no acute distress. HEAD: Normocephalic, atraumatic. RESPIRATORY: Airway patent, respirations nonlabored CARDIOVASCULAR: Regular rate and rhythm. Pedal pulses intact and easily palpable. MUSCULOSKELETAL: Moves all extremities. No gross deformities. Mild diffuse tenderness throughout lateral joint spaces of right anterior knee. Mild fullness appreciated in right popliteal region with tenderness to palpation. No warmth or erythema of right knee. No significant swelling throughout right knee or right lower leg. Sensation intact. SKIN: Warm, dry, normal color. NEURO: A&O X3. Speech clear. Steady gait. No ataxic movements. PSYCHIATRIC: Appropriate mood and affect. Normal interaction. Course Vital Signs Vital signs: Vital Signs Temperature 97.6 F 04/26/25 18:27 Pulse Rate 81 04/26/25 18:27 Respiratory Rate 18 04/26/25 18:27 Blood Pressure 148/79 H 04/26/25 18:27 Pulse Oximetry 100 04/26/25 18:27 Oxygen Delivery Room Air 04/26/25 18:27 Temperature 98.5 F 04/26/25 22:50 Pulse Rate 84 04/26/25 22:50 Respiratory Rate 18 04/26/25 22:50 Blood Pressure 139/77 04/26/25 22:50 Pulse Oximetry 99 04/26/25 22:50 Oxygen Delivery Room Air 04/26/25 18:27 MDM - Extremity Injury (Lower) MDM Narrative Medical decision making narrative: Patient?s injury is consistent with musculoskeletal etiology. No signs of neurologic or vascular compromise on physical examination. Compartments are soft without signs of compartment syndrome. XR of right knee showing possible lucency along tibial spine. Recommended CT. CT scan of knee was performed and showing: IMPRESSION: Interruption seen in the posterior cortex of the medial tibial plateau. Clinical correlation and follow-up advised. Minimal joint effusion. Advised could be fracture of nutrient vessel. Patient denies any direct fall or injury onto the knee. She is able to bear weight and denies having significant worsening pain with bearing weight, reports more pain with flexion/extension of her right knee. I am less suspicious for a fracture. Venous Doppler ultrasound was obtained and negative for DVT, shows evidence of a Henderson cyst. This is consistent with clinical picture and patient is focally tender in this region. Discussed case and imaging findings with Dr. Lombardi, orthopedics, advised WBAT, recommended walker/crutches, no indication for knee immobilizer, recommended follow-up in office for possible MRI. Discussed these recommendations with patient. She is in agreement with plan. Will prescribe short course of pain medication for home. Discussed further rice therapy. Given return precautions. Discharged in stable condition. Medical Records Attestation: I reviewed the patient's medical records. Imaging Data Attestation: I personally reviewed and interpreted this imaging study as follows: Radiologist's impression: ITS Impressions Knee X-Ray 04/26/25 20:05 IMPRESSION: Possible lucency in the area inferior to the tibial spines. CT evaluation advised. Knee CT 04/26/25 20:59 IMPRESSION: Interruption seen in the posterior cortex of the medial tibial plateau. Clinical correlation and follow-up advised. Minimal joint effusion. Venous Doppler Study 04/26/25 21:21 IMPRESSION: Negative right lower extremity venous US. No deep vein thrombosis. Discharge Plan Discharge Clinical Impression: Internal derangement of right knee, Synovial cyst of popliteal space [Henderson], right knee Patient Disposition: Home Condition: Stable Instructions: Antibiotic Form, Knee Sprain (ED), Henderson Cyst (ED) Additional Instructions: Continue Tylenol and Ibuprofen as needed for pain. Utilize tramadol as needed for more severe pain. Recommend elevation of leg whenever possible, frequent icing to right knee. Follow-up with orthopedics for further evaluation in office. Call office to make appointment. Return to the ED if you experience worsening or severe pain, recurrent injury, numbness, severe swelling, or any other symptoms of concern. Patient Language: Persian Prescriptions: New tramadol 50 mg tablet 50 mg PO Q6H PRN (Reason: pain) Qty: 10 0RF Follow-up/Referrals: Ghanshyam Lombardi MD [Physician] - (ORTHOPEDICS) UNKNOWN,DOCTOR [Primary Care Provider] - Time of Disposition: 22:37
[2025-04-26 22:50] VITALS: BP 139/77; PULSE 84; RESP 18; TEMP 36.9; O2SAT 99
== END 2025-04-26 22:54 | disposition home or self-care (01) ==
PROVIDERS: Emergency Provider Physician Assistant
DX: M23.91 Unspecified internal derangement of right knee (principal); M71.21 Synovial cyst of popliteal space [Baker], right knee; M79.604 Pain in right leg
CPT/HCPCS: 73564; 73700; 93971; 96372; 99284; A9270; J1885

== ENCOUNTER 2025-05-03 00:59 | Day surgery (SDC) | payer MEDICARE, SELFPAY ==
[2025-04-27 10:11] VITALS: BMI 40.1
--- OUTSIDE RECORDS SUMMARY | 2025-05-03 01:01 | XMS_ITS | Continuity of Care Document ---
Author Organization [facility] Address [id number] [place] [address] [place] [address] Phone Care Team Providers Care Hot Plate Plywood Press Offbearer Name Role Phone Francisco Brody DO Unavailable Unavailable Advance Directives Directive Yes / No Effective Date File Name No Information Encounters Encounter Description Practice Location Reason(s) For Visit Diagnoses Date Provider Providers Copied on Encounter Merged with [facility], [address], [place], [place], [id number], [place] tel:[phone] [facility] [place] No Information Ronn Alexandra. [address] [employer] [facility], [place], [address], [place]. tel: [phone] Family History Family Member Type Diagnosis Age At Onset No Information Payers Payer name Insurance type Covered democrat ID Authoriza tieugene(s) [employer] SOI CI [id number] Social History Type Description Quantity Date Captured [...]
--- OUTSIDE RECORDS SUMMARY | 2025-05-03 01:01 | XMS_ITS | Clinical Summary ---
Author Organization [facility] Address [address] [place] [address] Care Team Providers Care Control Technician Name Role Phone Chato Hernandez MD Primary Care Provider Allergies No known active allergies Medications acyclovir [...] patient's age to complete this topic Insurance [facility] Care Teams Control Technician Relationship Specialty Start Date End Date Chato Hernandez MD [address] [place] [address] PCP - General INTERNAL MEDICINE 05/19/19
--- OUTSIDE RECORDS SUMMARY | 2025-05-03 01:01 | XMS_ITS | Clinical Summary ---
Author Organization [facility] Address [address] [place] [address] Care Team Providers Care Social Media Marketing Analyst Name Role Phone Chato Hernandez MD Primary Care Provider [phone] Source Comments [facility],non-owned Affiliates and Associated Physician Practices is amultiple site organization consisting of ambulatory clinics and hospital sitesin [place], [place], [place] and [place]. This disclosure is being madepursuant to the Care Everywhere program and may not contain all information available regarding this patient. Last updated 18.[facility] Allergies No known active allergies Medications * [...] Not Established ug/mL 08/04/2023 10:58 AM CDT [facility] Creatinine Urine 60.60 Not Established mg/dL 08/04/2023 10:58 AM CDT [facility] Urine Albumin/Creati nine Ratio 15 <30 mg/g 08/04/2023 10:58 AM CDT [facility] Urine URINE SPECIMEN OBTAINED BY CLEAN CATCH PROCEDURE / Unknown Collection / Unknown 08/04/2023 9:49 AM CDT 08/04/2023 10:17 AM CDT Robbi Haskins MD LAB - URINE CHEMISTRY ORDERAB LES Final Result Performing Organization Address City/State/[facility] Co de Phone Number [facility] [address] [place] [id number], [facility] [phone] * (ABNORMAL) HEMOGLOBIN A1C (08/04/2023 9:42 AM CDT) Hemoglobin A1c 9.7(H) <=5.6 % 08/06/2023 11:28 AM CDT [facility] Estimated Average Glucose 232 mg/dL 08/06/2023 11:28 AM T [facility] Comment: HbA1c Interpretation: Normal : < 5.7% Pre-diabetes: 5.7-6.4% Diabetes: Equal to or greater than 6.5% Test results diagnostic of diabetes should be repeated for confirmation. Treatment target values recommended by ADA and other clinical organizations should be used to evaluate metabolic control in patients. Reference: [place] [employer], Standards of Care in Diabetes [...] LAB - CHEMISTRY ORDERABLES Fi nal Result [facility] [address] [place] [address], [facility] [phone] * (ABNORMAL) COMPREHENSIVE METABOLIC PANEL (08/04/2023 9:42 [...] - 34 U/L 08/04/2023 10:52 AM CDT [facility] Anion Gap 10 6 - 16 08/04/2023 10:52 AM [facility] BUN/Creatinine Ratio 14 7 - 23 08/04/2023 10:52 AM T [facility] Osmolality Calculated 291 275 - 295 [...] MD LAB - CHEMISTRY ORDERABLES nal Result [facility] [address] [place] [address], [facility] [phone] * EYE EXAM (05/07/2023) Anatomical Region Laterality Modality Other Historical Provider SCANNING ONLY Final Res ult from Last 3 Months or Most Recently Relevant to Health Maintenance Insurance MEDICARE MEDICAID - [place] Care Teams Social Media Marketing Analyst Relationship Specialty [place] [address] [place] [id number] PCP - General Internal Medicine 08/04/23
--- OUTSIDE RECORDS SUMMARY | 2025-05-03 01:02 | XMS_ITS | Data Portability ---
Author Organization [facility] [email or web address], Main Office Address [address] [place] [address] Care Team Providers Care Pocket Setter Name Role Phone RUSTAM ANNA Primary Care Provider KATHYARRON ANNA Referring Provider [phone] Assessment Encounter Date Assessment Date Assessment LastModified [...] contact patient to schedule 2023 024 [email or web address] [facility], [address] [place], [address], 4 15:32:09 Procedures injection/a spiration joint/bursa (PROC) 2023 024 [email or web address] In-Office Order, Internal Use Only DO Not Attach Compendium DO Not Attach Compendium, Do Not Delete/merge, [id number] 4 10:14:57 Surgeries None recorded. Imaging XR, shoulder 2023 024 [email or web address] [facility], [address] [facility], [place], [address], 4 10:54:50 Medication Orders bupivacaine HCl 0.5 % (5 mg/mL) injection solution 2023 024 [place] [address] [facility], [address] [place] [address], [id number], 4 10:54:50 Kenalog 10 mg/mL suspension for injection 2023 [address] [facility], [address] [place] [address], [id number], 4 10:54:50 prednisone 10 mg tablets in a dose pack 2023 [address] [facility], [address] [place] [address], [id number], 4 10:54:50 Patient TargetsNo targets recorded. Patient [...] bilat eral No observ ation record ed. [id number] [facility] [address], [place], [address], 12/18/2022 15:45:32 11/04/19 24 XR, shoul gloria No observ ation record ed. [email or web address] [facility] [address] [facility], [place], [address], 11/04/2023 10:53:02 Result Notes None recorded. Problems Name Problem SNOMED Code Status Onset Date Resolution Date Notes Provider Name and Address Organization Details Recorded Time Pain in left sacroiliac joint 1283844915819 9102 Active 2022 Not Available [facility] 3 15:43:19 Pain in right sacroiliac joint 5650025181092 9107 Active 2022 Not Available [facility] 3 15:43:19 Pain of bilateral hip joints 0180883174731 9100 Active 2022 Not Available [facility] 3 15:43:20 Cellulitis 867628929 Active Not Available [facility] 3 15:43:20 Folliculit is 19970627 Active Not Available [facility] 3 15:43:20 Pain of right shoulder joint 4992833190153 9100 Active 2020 Not Available [facility] 3 15:43:20 Morbid obesity 903089292 Active 2022 Not Available [facility] 3 15:43:20 Edema 499702061 Active Not Available [facility] 3 15:43:20 Infection of toe 343189503 Active Not Available [facility] 3 15:43:20 Hypertrigl yceridemia 990455975 Active Not Available [facility] 3 15:43:20 Trochanter ic bursitis of left hip 5155563814015 03 Active 2022 Not Available [facility] 3 15:43:20 Trochanter ic bursitis of right hip 0898852382214 00 Active 02/07/ 2023 Not Available [facility] 3 15:43:21 Depressive disorder 68288006 Active Not Available [facility] 3 15:43:21 Sinusitis 45662270 Active Not Available [facility] 3 15:43:21 Neuropathy 184108917 Active Not Available [facility] 3 15:43:21 Onychomyco sis of toenails 751753488 Active Not Available [facility] 3 15:43:21 Obesity 744013156 Active Not Available [facility] 3 15:43:21 Furuncle 922065082 Active Not Available [facility] 3 15:43:21 Pain of shoulder region 42023592 Active Not Available [facility] 3 15:43:21 Anxiety 51179930 Active Not Available [facility] includes the [facility] 3 15:43:22 Upper respirator y infection 96460748 Active Not Available [facility] includes the [facility] 3 15:43:22 Essential hypertensi on 00244241 Active Not Available [facility] 3 15:43:22 Urinary tract infectious disease 70748825 Active Not Available [facility] 3 15:43:22 Diabetes mellitus 07792709 Active Not Available [facility] 3 15:43:22 Conjunctiv itis 5678704 Active Not Available [facility] includes the [facility] 3 15:43:22 Tendinitis of right rotator cuff 0097173612858 9104 Active 2023 JOEL Reyna [address], [place], [address] , [employer] [facility] [employer] 4 10:53:47 Impingemen t syndrome of right shoulder region 3459650211307 02 Active 2023 JOEL Reyna [address], [place], [address] , [employer] [facility] [employer] 4 10:53:54 Osteoarthr itis of right acromiocla vicular joint 4661579627253 104 Active 2023 JOEL Reyna [address], [place], [address] , [place] [facility] 4 10:54:04 Problem Notes None recorded. Procedures Surgical History Date Name Laterality Status Provider Name and Address Organization Details Recorded Time delivery completed Not Available [facility] the [facility] 12/18/2022 15:41:15 Adenoid Surgery completed Not Available [facility] includes the [facility] 12/18/2022 15:41:15 Imaging Results None recorded. Procedure Notes None recorded. Medical Equipment None Reported. Allergies Allergen ID Allergen Name Allergen Category Reaction Reaction Severity Criticality Documentation Date Start Date Code Code System Note Provider Name and Address Organization Details Recorded Time 34479 trazodone medicatio n Not available Not available Not available 12/18/2022 60800 RxNorm Not Available [facility] includes the [facility] 3 15:45:27 64008 tramadol medicatio n nausea Not available Not available 12/18/2022 67865 RxNorm Not Available Count includes the [facility] 3 15:45:27 37424 Product containin g penicilli n (product) medicatio n other Not available Not available 12/18/2022 42829 8001 SNOMED Yeast Infec tion Not Available Count includes the [facility] 3 15:45:27 Medications Name Sig Start Date [...] mg by injectio n route. 2023 active [facility]: [id number] 4-20 Not Available Not Available Not [...] administ ered by the provider 11/26 completed [facility]: [id number] 04-05 Not Available Not Available Not [...] n administ ered by the provider active [facility] [id number] 01-18 Not Available Not Available Not Available [...] Updated DateTime 11/04/2023 163.83 cm 41.9 kg/m2 253338.91 g MILAGROS Cisneros [place] [employer] [facility] 11/04/2023 10:11:27 Date Recorded Body mass index (BMI) Body height Body weight Provider Name and Address Organization Details Last Updated DateTime 11/26/2022 61.5 kg/m2 138.43 cm 990704.02 g Not Available [facility] 12/18/2022 15:43:04 Date Recorded Body mass index (BMI) Body height Oxygen saturation Oxygen saturation in Arterial blood by Pulse oximetry Heart rate Body temperature Body weight Systolic And Diastolic Provider Name and Address Organization Details Last Updated DateTime 1 48.1 kg/m2 162.56 cm 97 % 97 % 98 /min 97.6 [degF] 570962. 86 g 118/76 mm[Hg] Not Available [facility] 15:42:59 Date Recorded Body mass index (BMI) Body height Oxygen saturation Oxygen saturation in Arterial blood by Pulse oximetry Heart rate Respiratory rate Body temperature Body weight Systolic And Diastolic Provider Name and Address Organization Details Last Updated DateTime 1 48.1 kg/m2 162.56 cm 97 % 97 % 98 /min 14 /min 97.6 [degF] 678695. 86 g 118/76 mm[Hg] Not Available [facility] 3 15:42:59 Social History Question Answer Notes LastModified by [employer] Details LastModified Time Tobacco Smoking Status Never Smoker Not Available [facility] includes the [facility] 12/18/2022 15:41:13 In The 14 Days Before Symptom Onset, Have You Had Close Contact With A Laboratory-confirm ed COVID-19 While That Case Was Ill? No [id number] Information not available 12/18/2022 In The 14 Days Before Symptom Onset, Have You Had Close Contact With A Person Who Is Under Investigation For COVID-19 While That Person Was Ill? No [id number] Information not available 12/18/2022 What Was The Date Of Your Most Recent Tobacco Screening? 12/19/2020 [id number] Information not available 12/18/2022 Sex: Unknown Functional Status Question Answer Note LastModified by Organizat ion Details LastModified Time What is your level of alcohol consumption? 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 Family History Relationship Description Onset Age of this Age Resolved Age Notes LastModified by Organization Details LastModified Time Unspecified Relation Diabetes mellitus [id number] Not available 12/18/2022 15:41:16 Mother Family history of malignant neoplasm [id number] Not available 12/18/2022 15:41:16 Medical History Condition Response ARTHRITIS Y DIABETES, TYPE Y BLOOD CLOTS Y USE OF NSAIDS Y HYPERTENSION Y Metal allergy Y Gynecological HistoryNo gynecological history recorded. Obstetrics History GPAL:G 0 P 0 0 0 0 Immunizations Vaccine Type Date Status Note Provider Nam e and Address Organization Details Recorded Time Influenza, high-dose, trivalent, PF 3 completed Not Available [facility] 12/18/2022 15:45:24 Pneumococcal conjugate PCV 13 5 completed Not Available [facility] 12/18/2022 15:45:24 Influenza, high-dose, trivalent, PF 5 completed Not Available [facility] includes the [facility] 12/18/2022 15:45:25 Influenza, split virus, quadrivalent, preservative 6 completed Not Available [facility] includes the [facility] 12/18/2022 15:45:25 Past Encounters Encounter ID Performer Location Encounter Start Date Encounter Closed Date Diagnosis/Indication Diagnosis SNOMED-CT Code Diagnosis ICD10 Code Diagnosis Note [id number] Gaudencio Pina MD [facility] [address] [place] [address] 12/19/2020 00:00:00 12/19/2020 09:33:14 [id number] MD DAVE [facility] [address] [address] 02/27/2021 00:00:00 02/27/2021 16:00:35 [id number] MD [facility] [address] [facility] [address] 04/03/2021 00:00:00 04/05/2021 13:45:08 [id number] Gaudencio Pina MD [facility] [address] [address] 11/26/2022 00:00:00 11/26/2022 10:58:32 [id number] Blas Sandhu MD [facility] [address] [address] 11/04/2023 10:05:51 11/04/2023 10:38:28 Pain of right shoulder joint 3459566214 4957860 M25.511 Tendinitis of right rotator cuff 2606372669 7653760 M67.813 Impingemen t syndrome of right shoulder region 2806486917 33010 M75.41 Osteoarthr itis of right acromioclavicular joint 9097669941 412669 M19.011 Health Concerns Section Related Observation LastModified by Organization Detai ls LastModified Time None Recorded Concern Status LastModified by Organization Details LastModified Time None Recorded Advance Directives Directive None Recorded Payers Insurance Date Sequence Insurance Name Policy Number Policy Harmon Covered Member ID Harmon Member ID Guarantor Name 05/10/2024 2 [place] [employer] [place] [employer] Brianne Bear [id number] Briannesa Bear 05/10/2024 1 [facility] (MEDICARE REPLACEMENT/AD VANTAGE - PPO) [id number] Brianne Bear [id number] Brianne Bear 10/29/2023 1 [facility] ON OR AFTER 04/19/21 (MEDICAID REPLACEMENT - HMO) Brianne Bear [id number] Brianne Bear 05/10/2024 2 [place]CON[place] WHEN MEDICARE OR MEDICARE REPLACEMENT PRIMARY) Brianne Bear [id number] Brianne Bear Notes Date Note Type Note [...] in bowel/bladder habits;weakness;swell ing;warmth;popping/cl icking Not Available [facility] 12/19/2020 09:33:14 11/26/2022 text/html Back PainReporte d bypatient.Location:pa in radiating to the buttocks Quality:dull Severity:worsening Duration:chronic Context:unusual activity; prior back problems Associated Symptoms:no fever; no weak limbs; no numbness of the legs/feet; no tingling; no incontinence; no shortness of breathHip(s)Reported bypatient.Location:ne terme Quality:throbbing; superficial; frequent Severity:moderate Duration:continuous since onset Timing:occasional Context:overuse Alleviating Factors:lying down; heat; ice; rest; exercise; limited weight bearing Aggravating Factors:standing; walking; bending/squatting Associated Symptoms:no numbness; no redness; no ecchymosis; no catching/locking; no popping/clicking; no buckling; no grinding; no instability; no radiation down leg; no drainage; no fever; no chills; no weight loss; no change in bowel/bladder habits;weakness;swell ing Not Available [facility] 11/26/2022 10:58:32 11/04/2023 text/html Patient returns with [...] shoulder pain as described. JOEL Reyna [address] [facility] [facility] [address], [place], [address], [place] [facility] 11/04/2023 16:44:14 OBGyn Episode No OBEpisode recorded.
--- OUTSIDE RECORDS SUMMARY | 2025-05-03 01:02 | XMS_ITS | Data Portability ---
Author Organization CHARLY LUISIrina Roland Address [address] [place] [address] Care Team Providers Care Utility Worker Forge Name Role Phone DORINA GARDUNO Primary Care Provider [phone] Assessment No assessment recorded. Plan of Treatment Reminders Order Date Submit Date Provider Last Modified By Organization Details Last Modified Time Details Appointments ANY 30 2024 02:30P M Dorina Garduno MD Not available Not available Not available Lab culture, urine 2024 025 [facility], [address] [facility], [address], [place], [address], 04/21/2025 06:19:59 lipid panel, serum 2024 025 [email or web address] [facility], [address], [address], [place], [address], 04/12/2025 09:42:28 HbA1c (hemoglob in A1c), blood 2024 025 jose In-Office Order, Internal Use Only DO Not Attach Compendium DO Not Attach Compendium, Do Not Delete/merge, [id number] 02/28/2025 16:38:51 urinalysi s complete, reflex culture 2024 025 [facility], [address], [address], [place], [address], 03/04/2025 17:19:55 hemoglobi n (Hb), fingersti ck, blood 2024 025 [facility] In-Office Order, Internal Use Only DO Not Attach Compendium DO Not Attach Compendium, Do Not Delete/merge, [id number] 11/04/2024 13:05:32 HbA1c (hemoglob in A1c), blood 2023 024 [facility], [address], [address], [place], [address], 11/05/2024 09:44:42 CMP, serum or plasma 2023 024 [facility] CR[facility], [address] [place] [address], [address], [place], [address], 07/29/2024 10:13:57 albumin/c reatinine , mass ratio, urine 2023 024 [place] [facility], [address] [place] [address], [address], [place], [address], 07/29/2024 10:13:56 Referral gastroent erologist referral - family history of colon cancer, [address] [facility], [address], [address], [place], [address], 04/17/2025 04:07:58 Procedures None recorded. Surgeries None recorded. Imaging XR, hand - pain mainly in first MCP and PIP, also pain in left anatomica l snuff box [address] ([facility]), [address], [place], [address], 04/13/2025 09:53:30 DEXA 2024 025 [facility] (Imaging), [address], [place], [address], 03/28/2025 12:11:17 MAMMO, screening , digital, bilateral 2024 025 [facility] (Mammography) , [address], [place], [address], 03/07/2025 13:54:19 XR, hand - Pain bilateral MCP joints [address] [facility] ([facility]), [address] [place], [address], 03/02/2025 11:39:00 XR, foot - diabetic, foot swelling and tendernes s over metatarsa l heads on exam [address] [facility] ([facility]), [address] [place], [address], 03/02/2025 11:39:00 MAMMO, screening , digital, bilateral [address] [facility] ([facility]), [address] [place], [address], 03/01/2025 13:43:16 Medication Orders Cipro 500 mg tablet 2024 025 [facility], [address] [place] [address], [id number], 04/21/2025 14:34:30 propranol ol 10 mg tablet 2024 025 [facility], [address] [place] [address], [id number], 03/01/2025 14:43:57 Trulicity 0.75 mg/0.5 mL subcutane ous pen injector 2024 025 [facility], [address] [place] [address], [id number], 04/13/2025 14:20:38 Trulicity 1.5 mg/0.5 mL subcutane ous pen injector 2024 025 [facility], [address] [place] [address], [id number], 03/23/2025 14:49:14 metformin 1,000 mg tablet 2024 025 [facility], [address] [place] [address], [id number], 01/12/2025 15:39:45 Ozempic 2 mg/dose (8 mg/3 mL) subcutane ous pen injector 2024 025 [facility], [address] [place] [address], [id number], 02/07/2025 15:24:04 gabapenti n 800 mg tablet 2024 025 [facility], [address] [place] [address], [id number], 01/12/2025 15:39:44 amitripty line 25 mg tablet 2024 025 [facility], [address] [place] [address], [id number], 02/28/2025 15:49:28 Flonase Allergy Relief 50 mcg/actua tion nasal spray,brad pension 2024 025 [facility], [address] [place] [address], [id number], 12/14/2024 16:09:20 Augmentin 500 mg-125 mg tablet 2024 025 [facility], [address] [place] [address], [id number], 02/28/2025 15:43:15 hydrochlo rothiazid e 25 mg tablet 2024 025 [facility], [address] [place] [address], [id number], 01/12/2025 15:39:45 lisinopri l 20 mg tablet 2024 025 [facility], [address] [place] [address], [id number], 01/12/2025 15:39:45 Ozempic 2 mg/dose (8 mg/3 mL) subcutane ous pen injector 2023 024 [facility], [address] [place] [address], [id number], 09/30/2024 15:43:51 Patient TargetsNo targets recorded. Patient Instructions Encounter Date Encounter Id Patient Instructions Last Modified By Organization Details Last Modified Time 04/27/2024 [id number] A healthy lifestyle: care instructions jose Not available 04/27/2024 15:11:47 Reason for Referral Convention Services Director Referral for Screening for malignant neoplasm of colon family history of colon cancer, Referring Physician: Dorina Garduno, Family Medicine, Encounter Date: 11/04/2024 Results Created Date Observation Date Name Description Value Unit Range Abnormal Flag Note LastModifiedBy Organization Detail LastModifiedTime 04/15/20 24 04/18/2024 URINE CULTU RETERRY NE urine culture, routine FINAL REPORT abnormal Not Available [facility] ([facility]) [address] [facility], [place], [address], 04/18/2024 13:07:36 04/15/20 24 04/18/2024 URINE CULTU [...] Prote us mirab ilis. Not Available [facility] ([facility]) [address] [facility], [place], [address], 04/18/2024 13:07:36 04/15/20 24 04/18/2024 URINE CULTU [...] thopr im/Connelly lfa R Not Available [facility] ([facility]) [address] [facility], [place], [address], 04/18/2024 13:07:36 05/05/20 24 05/09/2024 URINE CULTU RE, ROUTI NE urine culture, routine FINAL REPORT abnormal Not Available [facility] ([facility]) [address] [facility], [place], [address], 05/09/2024 17:07:42 05/05/20 24 05/09/2024 URINE CULTU [...] ng units per mL Not Available [facility] ([facility]) [address] [place], [address], 05/09/2024 17:07:42 05/05/20 24 05/09/2024 URINE CULTU [...] R Vanco mycin S Not Available [facility] ([facility]) [address] [facility], [place], [address], 05/09/2024 17:07:42 07/28/20 24 07/29/2024 ALBUM IN/CR EATIN INE RATIO ,URIN E creatinine, urine 28.2 mg/dL notest ab. Not Available [facility] ([facility]) [address] [place], [address], 07/29/2024 10:13:56 07/28/20 24 07/29/2024 ALBUM IN/CR EATIN INE RATIO ,URIN E albumin, urine <3.0 ug/mL notest ab. Not Available [facility] ([facility]) [address] [place], [address], 07/29/2024 10:13:56 07/28/20 24 07/29/2024 ALBUM IN/CR EATIN INE RATIO ,URIN E alb/creat ratio <11 Kaylyn l: 0 - 29 Moder ately incre ased: 30 - 300 Sever royer incre ased: >300 Not Available [facility] ([facility]) [address] [facility] [place], [address], 07/29/2024 10:13:56 07/28/20 24 07/29/2024 COMP. METAB OLIC PANEL (14) glucose 126 mg/dL 70-99 above high normal Not Available [facility] ([facility]) [address] [facility] [place], [address], 07/29/2024 10:13:57 07/28/20 24 07/29/2024 COMP. METAB OLIC PANEL (14) BUN 20 mg/dL 8-27 Not Available [facility] ([facility]) [address] [facility] [place], [address], 07/29/2024 10:13:57 07/28/20 24 07/29/2024 COMP. METAB OLIC PANEL (14) creatinine 0.93 mg/dL 0.57-1 .00 Not Available [facility] ([facility]) [address] [place], [address], 07/29/2024 10:13:57 07/28/20 24 07/29/2024 COMP. METAB OLIC PANEL (14) eGFR 68 mL/mi n/1.7 3 >59 Not Available [facility] ([facility]) [address] [place], [address], 07/29/2024 10:13:57 07/28/20 24 07/29/2024 COMP. METAB OLIC PANEL (14) BUN/creatini ne ratio 22 12-28 Not Available [facility] ([facility]) [address] [place], [address], 07/29/2024 10:13:57 07/28/20 24 07/29/2024 COMP. METAB OLIC PANEL (14) sodium 136 mmol/ L 134-14 4 Not Available [facility] ([facility]) [address] [place], [address], 07/29/2024 10:13:57 07/28/20 24 07/29/2024 COMP. METAB OLIC PANEL (14) potassium 4.2 mmol/ L 3.5-5. 2 Not Available [facility] ([facility]) [address] [facility], [place], [address], 07/29/2024 10:13:57 07/28/20 24 07/29/2024 COMP. METAB OLIC PANEL (14) chloride 95 mmol/ L 96-106 below low normal Not Available [facility] ([facility]) [address] [facility], [place], [address], 07/29/2024 10:13:57 07/28/2007/29/2024 COMP. METAB OLIC PANEL (14) carbon dioxide, total 23 mmol/ L 20-29 Not Available [facility] ([facility]) [address] [facility], [place], [address], 07/29/2024 10:13:57 07/28/20 24 07/29/2024 COMP. METAB OLIC PANEL (14) calcium 9.4 mg/dL 8.7-10 .3 Not Available [facility] ([facility]) [address] [facility] [place], [address], 07/29/2024 10:13:57 07/28/20 24 07/29/2024 COMP. METAB OLIC PANEL (14) protein, total 6.7 g/dL 6.0-8. 5 Not Available [facility] ([facility]) [address] [facility], [place], [address], 07/29/2024 10:13:57 07/28/20 24 07/29/2024 COMP. METAB OLIC PANEL (14) albumin 4.4 g/dL 3.9-4. 9 Not Available [facility] ([facility]) [address] [facility], [place], [address], 07/29/2024 10:13:57 07/28/20 24 07/29/2024 COMP. METAB OLIC PANEL (14) globulin, total 2.3 g/dL 1.5-4. 5 Not Available [facility] ([facility]) [address] [place], [address], 07/29/2024 10:13:57 07/28/20 24 07/29/2024 COMP. METAB OLIC PANEL (14) bilirubin, total 0.2 mg/dL 0.0-1. 2 Not Available [facility] ([facility]) [address] [place], [address], 07/29/2024 10:13:57 07/28/2007/29/2024 COMP. METAB OLIC PANEL (14) alkaline phosphatase 83 IU/L 44-121 Not Available [facility] ([facility]) [address] [place], [address], 07/29/2024 10:13:57 07/28/20 24 07/29/2024 COMP. METAB OLIC PANEL (14) AST (SGOT) 25 IU/L 0-40 Not Available [facility] ([facility]) [address] [place], [address], 07/29/2024 10:13:57 07/28/20 24 07/29/2024 COMP. METAB OLIC PANEL (14) ALT (SGPT) 20 IU/L 0-32 Not Available [facility] ([facility]) [address] [place], [address], 07/29/2024 10:13:57 08/25/20 24 08/28/2024 URINE CULTU TERRY CAREY urine culture, routine FINAL REPORT abnormal Not Available [facility] ([facility]) [address] [place], [address], 08/28/2024 07:36:08 08/25/20 24 08/28/2024 URINE CULTU RETERRY result 1 KLEBSI KAJAL OXYTOC A abnormal 50,00 0-100 ,000 colon y formi ng units per mL Not Available [facility] ([facility]) [address] [facility], [place], [address], 08/28/2024 07:36:08 08/25/20 24 08/28/2024 URINE CULTU [...] thopr im/Connelly lfa S Not Available [facility] ([facility]) [address] [facility], [place], [address], 08/28/2024 07:36:08 08/25/20 24 08/25/2024 urina lysis , dipst ick Leukocytes Large Not Available In-Offi ce Order Internal Use Only DO Not Attach Compendium DO Not Attach Compendium, Do Not Delete/merge, [id number] 08/25/2024 14:25:11 08/25/20 24 08/25/2024 urina lysis , dipst ick Nitrite positi ve Not Available In-Office Order Internal Use Only DO Not Attach Compendium DO Not Attach Compendium, Do Not Delete/merge, [id number] 08/25/2024 14:25:11 08/25/20 24 08/25/2024 urina lysis , dipst ick Urobilinogen 4 Not Available In-Of fice Order Internal Use Only DO Not Attach Compendium DO Not Attach Compendium, Do Not Delete/merge, [id number] 08/25/2024 14:25:11 08/25/20 24 08/25/2024 urina lysis [...] 08/25/2024 urina lysis , dipst ick Specific [place] 1.010 Not Available In-Off ice Order Internal [...] 08/25/2024 urina lysis , dipst ick Color Erath Not Available In-Office Order Internal Use Only DO Not Attach Compendium DO Not Attach Compendium, Do Not Delete/merge, [id number] 08/25/2024 14:25:11 11/04/19 25 11/04/2024 hemog lobin (Hb), finge rstic k, blood HGB 6.9 Not Available In-Office Order Internal Use Only DO Not Attach Compendium DO Not Attach Compendium, Do Not Delete/merge, [id number] 11/04/2024 12:07:26 02/29/20 25 03/01/2025 MICRO SCOPI C EXAMI NATIO N WBC 11-30 /hpf 0-5 abnormal Not Available [facility] ([facility]) [address] [facility], [place], [address], 03/04/2025 17:19:55 02/29/20 25 03/01/2025 MICRO SCOPI C EXAMI NATIO N RBC None seen /hpf 0-2 Not Available [facility] ([facility]) [address] [facility], [place], [address], 03/04/2025 17:19:55 02/29/20 25 03/01/2025 MICRO SCOPI C EXAMI NATIO N epithelial cells (non renal) 0-10 /hpf 0-10 Not Available [facility] ([facility]) [address] [facility], [place], [address], 03/04/2025 17:19:55 02/29/20 25 03/01/2025 MICRO SCOPI C EXAMI NATIO N casts None seen /lpf nonese en Not Available [facility] ([facility]) [address] [facility], [place], [address], 03/04/2025 17:19:55 02/29/20 25 03/01/2025 MICRO SCOPI C EXAMI NATIO N bacteria Modera te nonese en/few abnormal Not Available [facility] ([facility]) [address] [facility], [place], [address], 03/04/2025 17:19:55 02/29/20 25 03/01/2025 UA/M W/RFL X CULTU RE, ROUTI NE specific gravity 1.009 1.005- 1.030 Not Available [facility] ([facility]) [address] [facility], [place], [address], 03/04/2025 17:19:55 02/29/20 25 03/01/2025 UA/M W/RFL X CULTU RE, ROUTI NE pH 5.5 5.0-7. 5 Not Available [facility] ([facility]) [address] [facility], [place], [address], 03/04/2025 17:19:55 02/29/20 25 03/01/2025 UA/M W/RFL X CULTU RE, ROUTI NE urine-color YELLOW yellow Not Available [facility] ([facility]) [address] [facility], [place], [address], 03/04/2025 17:19:55 02/29/20 25 03/01/2025 UA/M W/RFL X CULTU RE, ROUTI NE appearance CLEAR clear Not Available [facility] ([facility]) [address] [facility], [place], [address], 03/04/2025 17:19:55 02/29/20 25 03/01/2025 UA/M W/RFL X CULTU RE, ROUTI NE WBC esterase 1+ negati ve abnormal Not Available [facility] ([facility]) [address] [facility], [place], [address], 03/04/2025 17:19:55 02/29/20 25 03/01/2025 UA/M W/RFL X CULTU RE, ROUTI NE protein NEGATI VE negati ve/tra ce Not Available [facility] ([facility]) [address] [facility], [place], [address], 03/04/2025 17:19:55 02/29/20 25 03/01/2025 UA/M W/RFL X CULTU RE, ROUTI NE glucose NEGATI VE negati ve Not Available [facility] ([facility]) [address] [place], [address], 03/04/2025 17:19:55 02/29/20 25 03/01/2025 UA/M W/RFL X CULTU RE, ROUTI NE ketones NEGATI VE negati ve Not Available [facility] ([facility]) [address] [place], [address], 03/04/2025 17:19:55 02/29/20 25 03/01/2025 UA/M W/RFL X CULTU RE, ROUTI NE occult blood NEGATI VE negati ve Not Available [facility] ([facility]) [address] [place], [address], 03/04/2025 17:19:55 02/29/20 25 03/01/2025 UA/M W/RFL X CULTU RE, ROUTI NE bilirubin NEGATI VE negati ve Not Available [facility] ([facility]) [address] [place], [address], 03/04/2025 17:19:55 02/29/20 25 03/01/2025 UA/M W/RFL X CULTU RE, ROUTI NE urobilinogen ,semi-qn 0.2 mg/dL 0.2-1. 0 Not Available [facility] ([facility]) [address] [place], [address], 03/04/2025 17:19:55 02/29/20 25 03/01/2025 UA/M W/RFL X CULTU RE, ROUTI NE nitrite, urine NEGATI VE negati ve Not Available [facility] ([facility]) [address] [place], [address], 03/04/2025 17:19:55 02/29/20 25 03/01/2025 UA/M W/RFL X CULTU RE, ROUTI NE microscopic examination SEE BELOW: Micro scopi c was indic ated and was perfo rmed. Not Available [facility] ([facility]) [address] [facility], [place], [address], 03/04/2025 17:19:55 02/29/20 25 03/01/2025 UA/M W/RFL X CULTU RE, ROUTI NE urinalysis reflex COMMEN T This speci men has refle xed to a Urine Cultu re. Not Available [facility] ([facility]) [address] [place], [address], 03/04/2025 17:19:55 02/29/20 25 03/04/2025 URINE CULTU RE, ROUTI NE urine culture, routine Final report abnormal Not Available [facility] ([facility]) [address] [facility], [place], [address], 03/04/2025 17:19:57 02/29/2003/04/2025 URINE CULTU RE, ROUTI NE result 1 Escher ichia coli abnormal Susce ptibi lity profi le is consi stent with a proba ble ESBL. Multi -Drug Resis tant Organ ism Great er than 100,0 00 colon y formi ng units per mL Not Available [facility] ([facility]) [address] [facility], [place], [address], 03/04/2025 17:19:57 02/29/20 25 03/04/2025 URINE CULTU [...] thopr im/Connelly lfa R Not Available [facility] ([facility]) [address] [facility], [place], [address], 03/04/2025 17:19:57 02/29/20 25 02/28/2025 HbA1c (hemo globi n A1c), blood HbA1c 8.0 Not Available In-Office Order Internal Use Only DO Not Attach Compendium DO Not Attach Compendium, Do Not Delete/merge, [id number] 02/28/2025 16:15:51 04/13/20 25 04/15/2025 UA/M W/RFL X CULTU RE, ROUTI NE specific gravity - Test not perfo rmed. Mancini top urine tube is for urine cultu re and is not suita ble for urina lysis . Not Available [facility] ([facility]) [address] [facility], [place], [address], 04/15/2025 09:13:00 04/13/20 25 04/15/2025 UA/M W/RFL X CULTU RE, ROUTI NE pH - Test not perfo rmed Not Available [facility] ([facility]) [address] [place], [address], 04/15/2025 09:13:00 04/13/20 25 04/15/2025 UA/M W/RFL X CULTU RE, ROUTI NE protein - Test not perfo rmed Not Available [facility] ([facility]) [address] [place], [address], 04/15/2025 09:13:00 04/13/20 25 04/15/2025 UA/M W/RFL X CULTU RE, ROUTI NE glucose - Test not perfo rmed Not Available [facility] ([facility]) [address] [facility], [place], [address], 04/15/2025 09:13:00 04/13/2004/15/2025 UA/M W/RFL X CULTU RE, ROUTI NE ketones - Test not perfo rmed Not Available [facility] ([facility]) [address] [facility], [place], [address], 04/15/2025 09:13:00 04/13/20 25 04/15/2025 WRITT EN AUTHO RIZAT ION written authorizatio n Thomas t Froilan en Autho rizat ion Recei adebayo. Autho rizat ion recei adebayo from ORIGI NAL ORDER 04-15 Logge d by Oralia Reed Not Available [facility] ([facility]) [address] [facility], [place], [address], 04/21/2025 06:19:58 04/13/20 25 04/21/2025 URINE CULTU RE, ROUTI NE urine culture, routine FINAL REPORT abnormal Not Available [facility] ([facility]) [address] [place], [address], 04/21/2025 06:19:59 04/13/20 25 04/21/2025 URINE CULTU [...] Prote us mirab ilis. Not Available [facility] ([facility]) [address] [place], [address], 04/21/2025 06:19:59 04/13/20 25 04/21/2025 URINE CULTU [...] thopr im/Connelly lfa R Not Available [facility] ([facility]) [address], [place], [address], 04/21/2025 06:19:59 03/07/20 25 03/07/2025 MAMMO , sherrie daniel, isabela al, bilstacey bernal No observ ation record ed. [address], [place], [address], 03/11/2025 11:29:35 Result Notes None recorded. Problems Name Problem SNOMED Code Status Onset Date Resolution Date Notes Provider Name and Address Organization Details Recorded Time Type 2 diabetes mellitus 04175480 Active 2016 Not Available [facility] 4 07:23:42 Peripheral neuropathy due to type 2 diabetes mellitus 0873578496740 Active 2016 Not Available [facility] 4 07:23:42 Thyroid nodule 987850460 Active 2016 Not Available [facility] 4 07:23:42 Depressive disorder 82933076 Active 2016 Not Available [facility] 4 07:23:42 Obesity 353146565 Active 2016 Not Available [facility] 4 07:23:42 Insomnia 923407643 Active 2019 Not Available [facility] 4 07:23:42 Panic attack 830479862 Active 2019 Not Available [facility] 4 07:23:42 Notes:Some problems listed i n Documents: #[id number], #[id number], #[id number], #[id number], #[id number], #[id number], #[id number] could not be added to this patient's chart. Please review these documents and add these problems to the patient's chart manually as needed. Problem Notes None recorded. Procedures Surgical History Date Name Laterality Status Provider Name and Address Organization Details Recorded Time 01/02/20 24 Nail Debridement completed ELSY AVILES DPM [address], [address], [facility] 01/02/2024 17:09:58 09/08/20 23 Nail [place], [address], [facility] 09/08/2023 15:25:26 05/22/20 23 Nail [place]bridement [place], [address], [facility] 05/22/2023 17:33:36 04/19/20 19 colonoscopy completed Chato Hernandez MD Attn: Accounting,[address] [place], [address], [facility] 06/11/2019 16:01:55 10/20/19 16 Most Recent Mammogram completed Gabriel Villafana [facility] 09/04/2017 10:27:36 10/20/19 15 Date of Last Mammogram completed Cecile Reyes [place] [facility] 01/08/2023 09:32:29 10/20/19 15 Date of Last Pap Smear completed Gabriel Villafana [facility] 09/04/2017 10:25:23 10/20/18 79 Dilation and Curettage completed Chato Hernandez MD Attn: Accounting,[address] [place], [address], [facility] 06/11/2019 16:01:19 Eye Surgery completed Hunter Will [place] [facility] 04/28/2017 10:58:31 Caesarean Section completed Hunter Will [place] [facility] 04/28/2017 10:58:38 section completed Chato Hernandez MD Attn: Accounting,[address] [place], [address], [facility] 06/11/2019 16:04:24 Imaging Results None recorded. Procedure Notes None recorded. Medical Equipment None Reported. Allergies Allergen ID Allergen Name Allergen Category Reaction Reaction Severity Criticality Documentation Date Start Date Code Code System Note Provider Name and Address Organization Details Recorded Time 784507 Farxiga medicatio n other moderate Not available 06/09/2019 76091 72 RxNorm donn nual yeast infec tions Brenda Tirado RN null, [facility] 9 10:12:08 456689 wheat gluten extract food other moderate Not available 06/11/2019 81986 81 RxNorm flatu lence Chato Hernandez MD Attn: Accountin g,[address] [facility], [place], [address], [facility] 9 16:03:12 471350 ciproflox acin medicatio n abdominal pain diarrhea mild moderate low 04/21/20252024 2551 RxNorm Justino Hutchison LPN null, [facility] 5 11:29:36 Medications Name Sig Start Date [...] Not Available tramadol 50 mg tablet TAKE 1 TABLET BY MOUTH EVERY 6 HOURS NEEDED FOR PAIN active Not Available Not Available No t Available amitripty line 50 mg tablet 09/13 [...] Updated DateTime 5 163.2 cm 38.8 kg/m2 800391. 06 g 98 % 98 % 88 /min 120/70 mm[Hg] Cecile Reyes MA [facility] 5 11:28:32 Date Recorded Body height Body mass index (BMI) Body weight Oxygen saturation Oxygen saturation in Arterial blood by Pulse oximetry Heart rate Body temperature Systolic And Diastolic Provider Name and Address Organization Details Last Updated DateTime 5 163.2 cm 39.9 kg/m2 986139. 61 g 98 % 98 % 93 /min 98.1 [degF] 122/70 mm[Hg] Cecile Reyes MA [facility] 5 15:51:17 Date Recorded Body height Body mass index (BMI) Body weight Oxygen saturation Oxygen saturation in Arterial blood by Pulse oximetry Heart rate Systolic And Diastolic Provider Name and Address Organization Details Last Updated DateTime 5 163.2 cm 39.9 kg/m2 622223. 61 g 98 % 98 % 93 /min 128/66 mm[Hg] Dolores Donald MA [facility] 5 14:21:34 Date Recorded Body height Body mass index (BMI) Body weight Oxygen saturation Oxygen saturation in Arterial blood by Pulse oximetry Heart rate Systolic And Diastolic Provider Name and Address Organization Details Last Updated DateTime 4 163.2 cm 39.5 kg/m2 988007. 43 g 100 % 100 % 90 /min 120/70 mm[Hg] Cecile Reyes MA [facility] 4 14:30:52 Date Recorded Body height Body mass index (BMI) Body weight Oxygen saturation Oxygen saturation in Arterial blood by Pulse oximetry Heart rate Systolic And Diastolic Provider Name and Address Organization Details Last Updated DateTime 4 163.2 cm 38.8 kg/m2 943228. 06 g 100 % 100 % 95 /min 118/70 mm[Hg] Cecile Reyes MA [facility] 4 14:36:36 Social History Question Answer Notes LastModified by Organizat ion Details LastModified Time Tobacco Smoking Status Former Smoker Nelly Adams MA [facility], [facility] 11/18/2022 15:58:32 Do You Have An Advance [...] used smokeless tobacco? 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 Never used electronic cigarettes [facility] Information not available 06/11/2019 What is your [...] Response Coronary Artery Disease N Other N Atrial Fibrillation N High Blood Pressure N Thyroid Problems Y Kidney or Bladder Problems N Depression Y COPD N Blood Clots Y GI Problems Y Skin Problems Y Anemia N Heart Attack (ID) N Diabetes Y Anxiety Disorder Y Muscle, Joint, or Bone Problems N Seizures/Epilepsy N Acid Reflux (GERD) N Cancer N Stroke N Allergies Y Asthma N High Cholesterol N Hepatitis N Liver Disease N Osteoporosis N Heart Failure N Gynecological History Statement/Question Response Abnormal Pap [...] virus, quadrivalent, preservative 9 completed Not Available [facility] 11/28/2023 07:23:44 Tdap 0 completed Not Available [facility] 11/28/2023 07:23:44 COVID-19, mRNA, LNP-S, PF, 30 mcg/0.3 mL dose 1 completed Not Available [facility] 11/28/2023 07:23:44 COVID-19, mRNA, LNP-S, PF, 30 mcg/0.3 mL dose 1 completed Not Available [facility] 11/28/2023 07:23:44 COVID-19, mRNA, LNP-S, PF, 30 mcg/0.3 mL dose 1 completed Not Available [facility] 11/28/2023 07:23:44 influenza, unspecified formulation 2 completed Not Available [facility] 11/28/2023 07:23:44 pneumococcal, unspecified formulation 2 completed Not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 4794525637 886833 M13.851 M13.852 Under the care of her orthopedic DR. Yocasta Pina. got steroid joint injection. Allergic rhinitis 556458 04 J30.9 Allergy bother s her nose, prefers pill than nasal spray. Type 2 yunior betes mellitus 65546836 E11.21 Diabetic diet, exercise, HgA1C 9.8% 04-30-2017 [...] anti-funga l treatment, she agreed. Dizzy spells 519806382 R 42 Probably from her allergy. Statin declined 54826576 0 Z53.20 Declined today 01-15-23. [id number] MD Paulo Stone (Adult Med) [address] [place] [address] [phone] 0 02/12/2023 15:42:58 02/14/2023 09:46:20 Type 2 diabetes mellitus 86114714 E11.9 1.) elevated BMI 2.) Fasting CMP [...] help to get endocrinol ogist involved. Constipation 94589591 K5 9.00 Likely aggravated by poorly controlled diabetes and lack of activity and movement due to chronic pain. 1.) Can use Lactulose short term. 2.) Repeat colonoscop y recommende d April. 3.) Discuss further at follow up. Thyroid nodule 437864554 E04.1 Has not heard from Endocrinol ogist for appointmen t. Will follow up on this. [id number] MD Paulo Stone (Adult Med) [address] [place] [address] [phone] 0 03/06/2023 11:20:24 03/19/2023 12:19:36 Type 2 diabetes mellitus 12269597 E11.9 On multiple oral medication s and diabetes is still not controlled . Does not want to be on insulin. Will refer to diabetic specialist . Bariatric procedure could be helpful as well. Follow up in one month to see if has referral appointmen ts. Body mass index 40+ - severely obese 446907472 Z68.42 Urinary incontinence 165 633579 R32 Thyroid nodule 379844855 E04.1 Will call to set up appointmen t with Endocrinol ogist for possible biopsy. She called while I was in the room and as they were working on the referral they disconnect ed her. She planned on calling back. Stressed the importance of setting up the referral since it is checking for thyroid cancer. Cervical d isc disorder 012460360 M50.90 Waiting on surgery at this time. Weight loss will be helpful. [id number] MD Paulo Stone (Adult Med) [address] [place] [address] [phone] 0 04/02/2023 12:03:43 04/09/2023 10:41:37 Edema of lower extremity 336646219 R60.0 bilateral pitting edema with some shortness of breath. Family history of valve disease. No pulmonary edema appreciate d on exam. Will proceed with echo. Seek immediate medical attention if symptoms worse. Follow up in two weeks. Will have her stop Pioglitazo ne due to relationsh ip to heart failure. Infection of skin 078167 000 L08.9 Superficia l skin infection. Treat with topical antibiotic . Seek medical attention if worse. Thyroid nodule 051076628 E04.1 Has appointmen t for FNA in July. Will try to schedule somewhere else sooner. Body mass index 40+ - severely obese 224758586 Z68.43 Meeting with magnetic tester. Encouraged lifestyle changes. Would like to discuss medication further. Explained my concern about medication interactio ns with her multiple medication s. Will discuss further at follow up visit. Type 2 yunior betes mellitus 57700139 E11.9 Discuss further at follow up. Probably need to repeat Hgb A1C to see if there is any improvemen t. Cannot use GLP-1 agonists due to thyroid issues. Discussed insulin which she feels she will gain weight from. Maximum dose of Glimepirid e and Metformin. Will have patient stop Pioglitazo ne due to concern about fluid retention and heart failure and start Januvia. 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 Referral for Opthalmolo gist. Thyroid nodule 562635097 E04.1 Needs FNA Body mass index 40+ - severely obese 524368863 Z68.42 Will benefit from Weight Watchers program. Edema 765920066 R60.9 Improved. Has echo scheduled. [id number] MD Paulo Stone (Adult Med) [address] [place] [address] 05/07/2023 10:16:43 05/08/2023 15:23:19 Onychomycosis 375874928 B35.1 Essential hypertension 90556538 I10 Increase Lisinopril to 20 mg BID. Will send out script. Type 2 yunior betes mellitus 70085058 E11.9 Continue Januvia and Metformin. Will return for fasting Hgb A1C and Lipids. Continue to check fasting blood sugars and bring in readings. Follow up in one month. Body mass index 40+ - severely obese 789626133 Z68.42 Weight decreased. Working on better diet and increasing activity. Would like to join Weight Watchers. Unintentio nal weight loss 863425206 R63.4 Body fluid retention 434 18778 R60.9 Has had a twenty seven pound weight loss in less than a month and edema has resolved since stopping Piglitazon e. This may be due to fluid retention from the medication , but there was no evidence of heart failure on the echo. Possible mild pulmonary hypertensi on although technicall y difficult study. Repeat echo in one year. [id number] ELSY AVILES DPM [facility] [address] [place] [address] 05/22/2023 14:01:12 05/23/2023 08:36:11 Diabetic peripheral neuropathy 138720266 E11.42 Patient was educated about the systemic risks of diabetes and importance of proper glucose control, dangers of neuropathy and loss of gift of pain and risk stratifica tion and exam frequency. Patient was educated on high pressure areas including risks and offloading solutions. Reviewed with patient proper foot care instructio ns and daily self-exami nation and monitoring of the feet. Onychomycosis 004869836 B35.1 The patient was educated why and [...] and prescripti on treatments . Tinea pedis 5122970 B35. 3 The patient was educated why [...] on treatments . Pain in left foot 208823 7295 83973 M79.672 Pain in right foot 27536 90198 81259 M79.671 Bilateral atherosclerosis of arteries of lower limbs 5431436742 2727342 I70.473 [id number] [facility] [address] [place] [address]461[address]241 0 06/10/2023 10:03:29 06/17/2023 12:06:27 Essential hypertension 87497993 I10 Taking Lisinopril BID. Blood pressure improved but not yet at goal. Continue to work on diet and exercise. Recheck in two months. Will send out refills. Type 2 yunior betes mellitus 52196150 E11.9 Continue Januvia, Glimepirid e, and Metformin. Will follow up in two months to check fasting glucose and Hemoglobin A1C, Will adjust medication accordingl y. Will continue to aggressive ly work on diet. Has seen Esl Instructional Assistant and Opthalmolo gist. Discussed statin therapy. Patient agreeable to starting. Will start medication after completes antifungal to avoid added stress to liver. Thyroid nodule 649150779 E04.1 Needs FNA. Scheduled for appointmen t in July. Onychomycosis 772490312 B35.1 Followed by Esl Instructional Assistant . Obesity 683269310 E66.9 [id number] ELSY AVILES DPM [facility] [address] [place] [address] 06/24/2023 09:17:58 06/26/2023 14:33:58 Diabetic peripheral neuropathy 202793628 E11.42 Patient was educated about the systemic risks of diabetes and importance of proper glucose control, dangers of neuropathy and loss of gift of pain and risk stratifica tion and exam frequency. Patient was educated on high pressure areas including risks and offloading solutions. Reviewed with patient proper foot care instructio ns and daily self-exami nation and monitoring of the feet. Onychomycosis 232089099 B35.1 The patient was educated why and [...] and prescripti on treatments . Tinea pedis 4037257 B35. 3 The patient was educated why [...] on treatments . Pain in left foot 628961 2189 79958 M79.672 Pain in right foot 38790 26801 10303 M79.671 Bilateral atherosclerosis of arteries of lower limbs 8152089772 8307381 I70.651 [id number] MD Paulo Stone (Adult Med) [address] [place] [address] 90976-043 0 07/28/2023 15:43:18 07/29/2023 12:08:16 Administration of influenza vaccine 32014151 Z23 [id number] MD Paulo Stone (Adult Med) [address] [place] [address] 0 08/19/2023 10:07:43 08/20/2023 11:57:41 Type 2 diabetes mellitus 37135621 E11.9 Following with Endocrinol ogist. Started on Ozempic and has two weeks of .5 mg but when runs out insurance will only cover Trulicity. Will start Trulicity .75 mg when out of Ozempic. [facility]. Has seen Esl Instructional Assistant and Opthalmolo gist. Discussed statin therapy. Patient agreeable to starting. Will start medication after completes antifungal . Continue Glimepirid e and Metformin. Does not need refills today. Pain of ri ght shoulder joint 3012659363 5137505 M25.511 Make appointmen t with orthopod for possible injection. Thyroid nodule 771911369 E04.1 Endocrinol ogist is monitoring . Onychomycosis 457579774 B35.1 Followed by Esl Instructional Assistant . Taking antifungal medication . Diabetic p eripheral neuropathy 187452874 E11.40 Taking gabapentin for symptoms. Refill so she has enough until follow up in September. Essential hypertension 00222664 I10 Blood pressure controlled . Continue Lisinopril BID. Refill so she has enough until follow up in September. [id number] ELSY AVILES DPM [facility] [address] [address] 09/08/2023 14:41:14 09/09/2023 11:31:13 Diabetic peripheral neuropathy 143236868 E11.42 Patient was educated about the systemic risks of diabetes and importance of proper glucose control, dangers of neuropathy and loss of gift of pain and risk stratifica tion and exam frequency. Patient was educated on high pressure areas including risks and offloading solutions. Reviewed with patient proper foot care instructio ns and daily self-exami nation and monitoring of the feet. Onychomycosis 988857790 B35.1 The patient was educated why and [...] and prescripti on treatments . Tinea pedis 2493856 B35. 3 The patient was educated why [...] on treatments . Pain in left foot 627893 0067 17214 M79.672 Pain in right foot 98107 04048 43075 M79.671 Bilateral atherosclerosis of arteries of lower limbs 5882042874 3028711 I70.391 [id number] MD Paulo Stone (Adult Med) [address] [place] [address]99[address] 0 10/28/2023 15:28:57 10/29/2023 16:28:53 Type 2 diabetes mellitus 83584470 E11.9 Missed Endocrinol ogist visit so needs to make another appointmen t. Has lost four pounds since previous visit. Hemoglobin A1C unchanged since April. Will increase Trulicity dose. Follow up in two months. Will check Chem panel and urine for protein today. Taking Terbinifin e from Esl Instructional Assistant . Once that is completed will start statin. Refill Glimepirid e. It appears she recently had Metformin and glimepirid e filled by Dr. Hernandez. Will research why refills are going to him. Pain of ri ght shoulder joint 0856305858 8943808 M25.511 Make appointmen t with orthopod for possible injection. Unable to take anti-infla mmatories due to borderline kidney function. Tylenol has not helped. Has taken Tizanidine but had hang over effect. Will try Baclofen at night. Advised her to avoid taking it with Gabapentin . Highly advised patient against using marijuana for pain management . Thyroid nodule 170811253 E04.1 Endocrinol ogist is monitoring . Onychomycosis 443238913 B35.1 Followed by Esl Instructional Assistant . Taking antifungal medication . Vertigo 704030326 R42 Symptoms consistent with vertigo. Patient has serous otitis on exam. Will start back on her allergy medication . If symptoms do not resolve in one week will let me know. Advised patient to stay well hydrated. Essential hypertension 11647734 I10 Blood pressure controlled . Continue Lisinopril BID. Will refill medication . Diabetic p eripheral neuropathy 637179391 E11.40 Taking gabapentin for symptoms. Medication recently refilled by Dr. Hernandez who is no longer her primary care provider. Will research why refill request keeps going to him. Renewal of prescription 646267514 Z76.0 [id number] MD Paulo Stone (Adult Med) [address] [place] [address] 0 12/29/2023 15:10:14 12/30/2023 10:05:20 Laboratory test result abnormal 122389417 R89.9 Abnormal electrolyt es in ER. Will recheck today. Acute dermatitis 6497054 6 L30.9 From patient history sounds like a contact dermatitis . Will try treating with topical steroid cream. Advised patient to avoid medication on face or genital area. Also advised her to avoid using more than two weeks in a row. Acute urin cris tract infection 217624849 N39.0 Partial response to antibiotic . Only [...] after treatment. Type 2 yunior betes mellitus 14165109 E11.9 Follows with endocrinol ogist. I will review meds with her at follow up. [id number] ELSY AVILES DPM [facility] [place] [address] 01/02/2024 15:54:51 01/06/2024 10:11:12 Diabetic peripheral neuropathy 911362119 E11.42 Patient was educated about the systemic risks of diabetes and importance of proper glucose control, dangers of neuropathy and loss of gift of pain and risk stratifica tion and exam frequency. Patient was educated on high pressure areas including risks and offloading solutions. Reviewed with patient proper foot care instructio ns and daily self-exami nation and monitoring of the feet. Onychomycosis 351381192 B35.1 The patient was educated why and [...] and prescripti on treatments . Tinea pedis 2861484 B35. 3 The patient was educated why [...] on treatments . Pain in left foot 743235 2675 14999 M79.672 Pain in right foot 52569 13593 55838 M79.671 Bilateral atherosclerosis of arteries of lower limbs 9777764619 4057884 I70.203 Xerosis du e to atopic dermatitis 237737240 L85.3 The patient was educated regarding proper hydration of their feet/ankle s and the patient was given several recommenda tions for proper creams to protect/hy drate and keep the area healthy. [id number] [facility] ([facility] [address] [place] [address]90[address] 0 02/11/2024 13:34:44 02/12/2024 15:18:01 Exposure to Influenzavirus 214491784 Z20.828 Influenza caused by Influenza B virus 27476784 J10.1 Treat with Tamiflu. Isolate until fever free. [id number] [facility] [address] [place] [address] 0 02/18/2024 14:05:38 04/20/2024 14:11:57 Obesity 869640887 E66.9 Type 2 yunior betes mellitus 74559016 E11.9 Increase Ozempic to 1 mg daily. Stop Glimepirid e. Continue morning acu checks and do acu check if does not feel good. If acu checks less than or close than 70 let me know so I can adjust medication . Follow up in two months. Make sure she is staying well hydrated. Seasonal a llergic rhinitis 541757056 J30.2 Claritin has stopped helping allergy symptoms. Will try Singulair. Influenza caused by Influenza B virus 29510094 J10.1 Symptoms resolving. Essential hypertension 64207145 I10 Blood pressure controlled . Having some episodes of light headedness with positional changes. Blood pressure running a little on the low side since weight loss. Decrease Lotensin to one a day. Follow up in two months to repeat blood pressure. Body mass index 40+ - severely obese 506250831 Z68.42 Great work! Recommende d she add some weight lifting to exercises. Continue healthy eating and regular exercise. [id number] MD Paulo Stone (Adult Med) [address] [place] [address] 04/27/2024 14:17:28 04/28/2024 16:28:41 Body mass index 40+ - severely obese 926884809 Z68.42 Has lost eight pounds. Asked about [...] exercise routine. Acute urin cris tract infection 988927107 N39.0 Has had recurrent UTIs since on [...] of infection. Swelling o f right foot 025202055 M79.89 Has had swelling of right foot, and had tenderness over metatarsal s on exam. Will proceed with xray. Type 2 yunior betes mellitus 87178207 E11.9 Doing well with Ozempic. Will check a Hemoglobin A1C at follow up in three months. Will also check urine for protein. Advised patient to make ophthalmol ogy appointmen t. Screening for malignant neoplasm of breast 731357982 Z12.39 Due for screening mammogram in February. Will put the order in. [id number] MD Paulo Stone (Adult Med) [address] [place] [address] 07/28/2024 14:26:27 07/30/2024 15:57:56 Type 2 diabetes mellitus 26140935 E11.9 Due for a Hemoglobin A1C. Will increase Ozempic. She said she saw an ophthalmol ogist this year but I am not sure we have the record. I will have to check on that. Body mass index 30+ - obesity 324386171 Z68.38 Will increase Ozempic but stressed the importance of lifestyle change and management of diet on her own because we are now reaching the maximum dose of this medication . Hand pain 07893579 M79.6 43 Pain of both MCP joints, [...] would be better. Laboratory test result abnormal 815703815 R89.9 Pain in right foot 41201 72323 59874 M79.671 Will get xray done. [id number] MD Paulo Stone (Adult Med) [address] [place] [address] [phone] 0 11/04/2024 11:13:47 11/09/2024 16:15:09 Type 2 diabetes mellitus 50310516 E11.9 Will give her three more months [...] ogist. Screening for malignant neoplasm of colon 552222473 Z12.11 Due for colonoscop y. Screening for malignant neoplasm of breast 484154558 Z12.39 Due for screening mammogram in February. Will put the order in. Screening for osteoporosis 839801026 Z13.820 Acute sinusitis 60123039 J01.90 Had partial improvemen t with Zithromax, but completed that over a week ago and continues with significan t sinus pressure and drainage. Will treat with Augmentin and Flonase. Cautioned on diarrhea with Augmentin. Advised her to keep the medication twelve hours apart and take each dose with a large glass of water. Diabetic p eripheral neuropathy 920705586 E11.40 Gabapentin is not controllin g neuropathy at night. Will try amitriptyl ine at night. Advised her to avoid Gabapentin and Baclofen with this medication at night. Follow up in three months. Essential hypertension 40002013 I10 Blood pressure controlled . Having some episodes of light headedness with positional changes. Blood pressure running a little on the low side since weight loss. Decrease Lotensin to one a day. Follow up in two months to repeat blood pressure. [id number] MD Paulo Stone (Adult Med) [address] [place] [address] 02/28/2025 15:33:38 03/02/2025 13:32:13 Type 2 diabetes mellitus 44460952 E11.9 Stop Ozempic since is really not seeing a response to that. Will start Trulicity and increase as tolerated. Follow up in three months. History of urinary tract infection 5399082057 107 Z87.440 Will repeat UA. Pain of bi lateral hands 4089033473 7503324 M79.641 M79.642 Will get x-rays of both hands. Generalize d anxiety disorder 46776096 F41.1 Asked for medication she can take acutely for anxiety. I will start her on Propranolo l 10 mg to take one as needed prior to an event that provokes anxiety. We can adjust the dose as needed. Hyperlipid emia screening 990918199 Z13.220 Has not had a lipid panel since 2022 and not on a statin. Will return for fasting lipids. [id number] MD Paulo Stone (Adult Med) [address] [place] [address]71[address] 0 04/13/2025 14:05:46 04/14/2025 14:33:58 Urinary tract infectious disease 79279829 N39.0 Dysuria with mild left CVA tenderness [...] Harmon Member ID Guarantor Name 10/28/2023 1 [facility] ON OR AFTER 04/19/21 (MEDICAID REPLACEMENT - HMO) Brianne Skyles [id number] Brianne Skyles 11/18/2022 1 [place] [facility] [place] [facility] Brianne Skyles [id number] Brianne Skyles 11/18/2022 1 [place] [id number] Brianne Skyles [id number] Brianne Skyles 11/18/2022 1 [place]PP[place] [id number] Brianne Skyles [id number] Brianne Skyles 07/28/2024 2 [place] WHEN MEDICARE OR MEDICARE REPLACEMENT PRIMARY) Brianne Skyles [id number] Brianne Skyles 04/13/2025 1 [facility] (MEDICARE REPLACEMENT/A DVANTAGE - HMO) [id number] Brianne M Skyles [id number] Brianne Skyles 11/18/2022 1 [facility] PRIOR TO 04/19/2021 (MEDICAID REPLACEMENT - HMO) Brianne Skyles [id number] Brianne Skyles 11/18/2022 2 [place] [facility] OF PUBLIC [facility] Brianne Skyles [id number] Brianne Skyles 11/18/2022 1 [place] [facility] Brianne Skyles [id number] Brianne Skyles 11/18/2022 1 [facility] PRIOR TO 04/19/2021 (MEDICAID REPLACEMENT - HMO) Brianne Skyles [id number] Brianne Skyles Notes Date Note Type Note Provider Name and Address Organization Details Recorded Time 04/27/2024 text/html here for follow up, was switched to Ozempic by tea bag packer, tea bag packer also started HCTZ, is always bad about drinking water, has had swelling in right foot for some time, no obvious pain or injury, due for eye doctor appointment, a couple more days of antibiotic for UTI, symptoms are much better, feels better, no back pain Dorina Garduno MD Attn: Accounting,[address] [facility], [place], [address], [facility] 04/27/2024 15:14:32 07/28/2024 text/html follow [...] and neck hurt, Dorina Garduno MD Attn: Accounting,[address] [facility], [place], [address], [facility] 07/28/2024 18:37:08 11/04/2024 text/html follow [...] through the night Dorina Garduno MD Attn: Accounting,[address] [place], [address], [facility] 11/04/2024 13:32:30 02/28/2025 text/html a [...] Dorina Garduno MD Attn: Accounting,[address] [facility], [place], [address], [place] [facility] 02/28/2025 16:40:44 04/13/2025 text/html Here for possibl e urinary tract infection, experiencin dysuria, fatigue, nocturia, glucose has been high around 250, Dorina Graduno MD Attn: Accounting,[address] [facility], [place], [address], [facility] 04/13/2025 19:29:37 OBGyn Episode Ob Episode Information Episode Created Date Number of Fetuses Patient Bloodtype Patient rh Status Prepregnancy Weight lbs Domestic Partner Domestic Partner Phone Father Name Lead Security Officer Status 09/04/20 17 1 CLOSED Fetus Data First Name Last Name Admitted to NICU Weight (g) Sex Living Outcome Pediatric Complications Fetus ID Race Codes Race Delivery Type 3855.53 2 M Full Term [id number] Bill Calculation Initial Bill Date Initial Exam [...] Domestic Partner Domestic Partner Phone Father Name Lead Security Officer Status 09/04/20 17 1 CLOSED Fetus Data First Name Last Name Admitted to NICU Weight (g) Sex Living Outcome Pediatric Complications Fetus ID Race Codes Race Delivery Type 3826.95 5704 F Full Term [id number] Bill Calculation Initial Bill Date Initial Exam [...]
[2025-05-03 08:15] VITALS: BP 157/87; PULSE 84; RESP 18; TEMP 36.2; O2SAT 100; BMI 40.5
[2025-05-03] MEDS: LACTATED RINGERS 1,000 ML 150 ML IV CONT (08:41)
--- NOTE | 2025-05-03 08:41 | P.PNAN_ITS ---
Anes - Initial Pre Proc Eval Procedure: Operation Date: 05/03/25 09:30 Proposed Procedures p Screening Colonoscopy - Juarez Robb MD Date/Time: 05/03/25 08:41 Surgeon: Juarez Robb MD Pre Op Diagnosis: screening malignant neoplasm of colon Patient Data Age: 64 Gender: F Height: 1.63 m Weight: 107.2 kg Last Vital Signs Temp 97.1 F L 05/03/25 08:15 Pulse 84 05/03/25 08:15 Resp 18 05/03/25 08:15 BP 157/87 H 05/03/25 08:15 Pulse Ox 100 05/03/25 08:15 O2 Del Method Room Air 05/03/25 08:15 Allergies Allergy/AdvReac Type Severity Reaction Status Date / Time No Known Allergies Allergy Verified 05/03/25 08:26 Home Medications ?Medication ?Instructions ?Recorded ?Confirmed ?Type tramadol 50 mg tablet 50 mg PO Q6H PRN pain #10 tabs 04/26/25 04/27/25 Rx cefdinir 300 mg capsule 300 mg PO BID 04/27/25 05/03/25 History dulaglutide 1.5 mg/0.5 mL 1.5 mg subcut WEEKLY 04/27/25 05/03/25 History subcutaneous pen injector (Trulicity) gabapentin 800 mg tablet 800 mg PO QID 04/27/25 05/03/25 History hydrochlorothiazide 25 mg tablet 25 mg PO DAILY 04/27/25 05/03/25 History lisinopril 20 mg tablet 20 mg PO DAILY 04/27/25 05/03/25 History metformin 1,000 mg tablet 1,000 mg PO DAILY 04/27/25 05/03/25 History Patient hx anesthesia problems: none Family hx anesthesia problems: none Results Review: All pre-operative results and documents have been reviewed as part of the pre- operative evaluation. [facility] Family History Family History Other Asthma Carcinoma of colon Cerebrovascular accident Depression Diabetes mellitus Family history of anemia Family history of cardiovascular disease Family history of chronic obstructive pulmonary disease Family history of liver disease Family history of lung disease Family history of malignant neoplasm of uterus Family history of mental disorder Family history of obesity Hypertension Social History Social History Smoking status: Former smoker Tobacco type: cigarettes Alcohol intake: never Substance use type: does not use Anes - Eval Final PreProcedure Day of Procedure 05/03/25 08:41 Patient weight: morbidly obese Lungs: normal air movement Airway: Mallampati scale class II Neurological: alert and oriented Last oral intake: >/= 8 hours ASA classification: III Emergent: no Anesthetic plan: proceed Anesthesia type and monitoring: general GIVS and standard monitoring Results Review: All pre-operative results and documents have been reviewed as part of the pre- operative evaluation. HTN, BMI 40, DM fsbs 189, off GLP1 for 9 days. Recent knee injury, pt had US to R/o blood clot and it was neg. Informed Consent: The patient's anesthetic plan and its attendant risks and benefits were discuss ed with the patient/family/POA. Questions were solicited and answers provided to the satisfaction of the patient/family/POA.
--- NOTE | 2025-05-03 09:35 | PM.IMHP ---
H&P: HPI History of Present Illness Date/Time: 05/03/25 09:35 Chief Complaint: Family history of colorectal cancer Narrative: This patient has family history of colorectal cancer. her mother had colorectal cancer and her son had a malignant polyp at 25 years old. Review of Systems Review of Systems: All systems reviewed & are unremarkable except as noted in HPI and below PMFSH Family History Family History Other Asthma Carcinoma of colon Cerebrovascular accident Depression Diabetes mellitus Family history of anemia Family history of cardiovascular disease Family history of chronic obstructive pulmonary disease Family history of liver disease Family history of lung disease Family history of malignant neoplasm of uterus Family history of mental disorder Family history of obesity Hypertension Social History Social History Smoking status: Former smoker Tobacco type: cigarettes Alcohol intake: never Substance use type: does not use Meds Home Medications and Allergies Home Medications ?Medication ?Instructions ?Recorded ?Confirmed ?Type tramadol 50 mg tablet 50 mg PO Q6H PRN pain #10 tabs 04/26/25 04/27/25 Rx cefdinir 300 mg capsule 300 mg PO BID 04/27/25 05/03/25 History dulaglutide 1.5 mg/0.5 mL 1.5 mg subcut WEEKLY 04/27/25 05/03/25 History subcutaneous pen injector (Trulicity) gabapentin 800 mg tablet 800 mg PO QID 04/27/25 05/03/25 History hydrochlorothiazide 25 mg tablet 25 mg PO DAILY 04/27/25 05/03/25 History lisinopril 20 mg tablet 20 mg PO DAILY 04/27/25 05/03/25 History metformin 1,000 mg tablet 1,000 mg PO DAILY 04/27/25 05/03/25 History Allergies Allergy/AdvReac Type Severity Reaction Status Date / Time No Known Allergies Allergy Verified 05/03/25 08:26 Vital Signs Vital Signs - 24 hr 05/03/25 08:15 Temperature 97.1 F L Pulse Rate 84 Respiratory Rate 18 Blood Pressure 157/87 H Pulse Oximetry 100 Oxygen Delivery Room Air Exam Const: General: cooperative and healthy appearing Resp: Effort & Inspection: normal respiratory effort and able to speak in complete sentences Auscultation: clear to auscultation bilaterally Cardio: Rate: regular rate Rhythm: regular rhythm GI: Inspection: normal to inspection GI Palp: No No hepatosplenomegaly present Auscultation: normal bowel sounds Rectal Exam: deferred Skin: General skin exam: normal color Psych: Appearance: grossly normal Mental Status: mental status grossly normal Assessment and Plan Assessment and plan (1) Family history of colon cancer: Code(s): Z80.0 - Family history of malignant neoplasm of digestive organs Status: Acute Assessment and Plan: The patient is deemed a good candidate for the procedure. Consent signed. Will proceed.
[2025-05-03 10:07] VITALS: BP 133/61; PULSE 85; RESP 17; O2SAT 99
[2025-05-03 10:17] VITALS: BP 142/73; PULSE 85; RESP 20; O2SAT 99
[2025-05-03 10:27] VITALS: BP 162/85; PULSE 86; RESP 20; O2SAT 100
== END 2025-05-03 10:40 | disposition home or self-care (01) ==
PROVIDERS: PCP Emergency Medicine; Referring Provider Emergency Medicine; Visit Provider Internal Medicine Gastroenterology
PROC: 0DJD8ZZ Inspection of Lower Intestinal Tract, Via Natural or Artificial Opening Endoscopic (ICD-10-PCS; CPT 45378; principal; 2025-05-03 09:30)
DX: Z12.11 Encounter for screening for malignant neoplasm of colon (principal); I10 Essential (primary) hypertension; E11.9 Type 2 diabetes mellitus without complications; E66.01 Morbid (severe) obesity due to excess calories; Z68.41 Body mass index [BMI] 40.0-44.9, adult; Z79.891 Long term (current) use of opiate analgesic; Z79.85 Long-term (current) use of injectable non-insulin antidiabetic drugs; Z79.84 Long term (current) use of oral hypoglycemic drugs; Z87.891 Personal history of nicotine dependence; Z80.0 Family history of malignant neoplasm of digestive organs; Z80.49 Family history of malignant neoplasm of other genital organs; Z82.49 Family history of ischemic heart disease and other diseases of the circulatory system
CPT/HCPCS: G0105; 82948; J2003; J2704; J7120

== ENCOUNTER 2025-06-13 07:44 | Outpatient (CLI) | payer MEDICARE, SELFPAY ==
--- NOTE | ~2025-06-13 | US_ITS ---
US right upper quadrant INDICATION: Gastroesophageal reflux disease PROCEDURE: Realtime right upper abdominal ultrasound. COMPARISON: No prior studies for comparison. FINDINGS: The pancreas is normal without focal mass or pancreatic ductal dilation. There is fatty infiltration of the liver. There is normal directional flow in the portal vein. The gallbladder is normal without stones, gallbladder wall thickening or pericholecystic fluid. Common bile duct measures 3 mm. No sonographic Best's sign. Spleen is enlarged measuring 14.6 cm. IMPRESSION: 1: Splenomegaly. 2: Fatty infiltration of the liver. Reviewed, dictated and finalized at location O.
== END 2025-06-13 07:45 | disposition home or self-care (01) ==
PROVIDERS: PCP Registered Nurse; Visit Provider Registered Nurse
DX: K21.9 Gastro-esophageal reflux disease without esophagitis (principal); R16.1 Splenomegaly, not elsewhere classified; K76.0 Fatty (change of) liver, not elsewhere classified
CPT/HCPCS: 76705